=== PATIENT | female | born 1935 | race Caucasian/White ===

== ENCOUNTER 2021-07-29 12:47 | Inpatient (IN) | payer MEDICARE, OTHER ==
[2021-07-29] MEDS ORDERED: Sodium Chloride 0.9% 10 ML Syringe FLUSH PRN (12:57)
[2021-07-29] MEDS ORDERED: Furosemide 40 MG/4 ML VIAL IVPUSH ONE ×2 (13:42→18:00)
--- NOTE | 2021-07-29 14:05 | CR ---
Chest: Portable view of the chest was obtained. Comparison: No prior chest imaging is available. Heart is enlarged. Tortuous thoracic aorta is seen with diffuse atherosclerotic calcification. Pulmonary vessels are congested. Scoliosis is noted within the spine. Impression: 1. Findings suspicious for mild CHF. Diagnostic code #3
--- NOTE | 2021-07-29 15:09 | EDM.PDOC ---
ED HPI GENERAL MEDICAL PROBLEM - General Chief Complaint: Respiratory Problem Stated Complaint: pedritodeer amb Time Seen by Provider: 07/29/21 12:51 Source of Information: Reports: Patient, EMS, Provider History Limitations: Reports: No Limitations - History of Present Illness INITIAL COMMENTS - FREE TEXT/NARRATIVE: The patient presents by [facility] for shortness of breath and low oxygen saturations. The patient lives at [facility]. She went to [facility] in [place] to be seen. Her oxygen saturations were in the upper 70s and low 80s. They put her on oxygen called [facility] to transport. Over the past week her legs have been swelling and she has been more short of breath with exertion. She denies fever, chills, cough, chest pain, abdominal pain, nausea or vomiting. According to her clinic records she has CHF but it not currently on any diuretics. Onset: Gradual Duration: Week(s): Severity: Moderate Improves with: Reports: None Worsens with: Reports: None Associated Symptoms: Reports: Shortness of Breath. Denies: Chest Pain, Cough, Fever/Chills, Headaches, Nausea/Vomiting Right Knee Pain Score (Numeric/FACES): 6 - Related Data Allergies Allergy/AdvReac Type Severity Reaction Status Date / Time No Known Allergies Allergy Verified 07/29/21 13:04 Home Meds: Home Meds Calcium Carbonate 600 mg PO DAILY 07/29/21 [History] Cholecalciferol (Vitamin D3) [Vitamin D3] 5,000 unit PO DAILY 07/29/21 [History] Diclofenac Sodium [Voltaren 1% Gel] 1 applic TOP ASDIRECTED PRN 07/29/21 [History] Metoprolol Tartrate 100 mg PO BID 07/29/21 [History] Mirabegron [Myrbetriq] 25 mg PO DAILY 07/29/21 [History] Omeprazole 40 mg PO QAM 07/29/21 [History] Potassium Chloride 10 meq PO BID 07/29/21 [History] Rosuvastatin [Crestor] 10 mg PO QPM 07/29/21 [History] Valsartan/Hydrochlorothiazide [Diovan Hct 160-25 mg Tablet] 1 each PO DAILY 07/29/21 [History] Past Medical History Cardiovascular History: Reports: High Cholesterol, Hypertension Gastrointestinal History: Reports: GERD Genitourinary History: Reports: Chronic Renal Insuffiency, Urinary Incontinence, Other (See Below) Other Genitourinary History: bladder surgery Musculoskeletal History: Reports: Gout Hematologic History: Reports: Anemia Other Hematologic History: pt stopped iron pill due to freq of diarrhea Oncologic (Cancer) History: Reports: Breast Other Oncologic History: 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 Denies: Cough Cardiovascular: Reports: Edema. Denies: Chest Pain Endocrine: Reports: No Symptoms GI/Abdominal: Reports: No Symptoms : Reports: No Symptoms Musculoskeletal: Reports: Other (Edema of legs) ED EXAM, GENERAL - Physical Exam Exam: See Below Exam Limited By: No Limitations General Appearance: Alert, No Apparent Distress Ears: Normal External Exam Nose: Normal Inspection Head: Atraumatic, Normocephalic Neck: Normal Inspection Respiratory/Chest: No Respiratory Distress, Rales Cardiovascular: Regular Rate, Rhythm, No Edema, No Murmur, Other (Edema of both legs) GI/Abdominal: Soft, Non-Tender, No Organomegaly, No Mass Back Exam: Normal Inspection Extremities: Pedal Edema #1 Interpretation EKG Date: 07/29/21 Time: 13:26 Rhythm: Other (sinus bradycardia) Rate (Beats/Min): 51 Fountain: LAD-Left Fountain Deviation P-Wave: Present QRS: LBBB ST-T: Normal QT: Normal Course - Vital Signs Last Recorded V/S: Last Vital Signs Temp 96.9 F 07/29/21 12:54 Pulse 53 L 07/29/21 12:54 Resp 26 H 07/29/21 12:54 BP 211/82 H 07/29/21 12:54 Pulse Ox 84 L 07/29/21 12:54 - Orders/Labs/Meds Orders: Active Orders 24 hr Category Date Time Status Cardiac Monitoring [RC] . DIRECTED Care 07/29/21 12:57 Active Oxygen Therapy [RC] PRN Care 07/29/21 12:57 Active Peripheral IV Care [RC] . DIRECTED Care 07/29/21 12:58 Active Sodium Chloride 0.9% [Saline Flush] Med 07/29/21 12:57 Active 10 ml FLUSH ASDIRECTED PRN Peripheral IV Insertion Adult [OM.PC] Stat Oth 07/29/21 12:57 Ordered Medication Orders Sodium Chloride (Sodium Chloride 0.9% 10 Ml Syringe) 10 ml FLUSH ASDIRECTED PRN PRN Reason: Keep Vein Open Last Admin: 07/29/21 13:30 Dose: 10 ml Documented by: CHET Labs: Laboratory Tests 07/29/21 07/29/21 07/29/21 Range/Units 12:40 13:30 13:30 WBC 4.99 (3.98-10.04) K/mm3 RBC 4.79 (3.98-5.22) M/mm3 Hgb 12.6 (11.2-15.7) gm/dl Hct 43.9 (34.1-44.9) % MCV 91.6 (79.4-94.8) fl MCH 26.3 (25.6-32.2) pg MCHC 28.7 L (32.2-35.5) g/dl RDW Std Deviation 52.4 H (36.4-46.3) fL Plt Count 252 (182-369) K/mm3 MPV 9.8 (9.4-12.3) fl Neut % (Auto) 66.4 (34.0-71.1) % Lymph % (Auto) 19.6 (19.3-51.7) % [place] % (Auto) 10.8 (4.7-12.5) % Eos % (Auto) 2.4 (0.7-5.8) Baso % (Auto) 0.8 (0.1-1.2) % Neut # (Auto) 3.31 (1.56-6.13) K/mm3 Lymph # (Auto) 0.98 L (1.18-3.74) K/mm3 [place] # (Auto) 0.54 H (0.24-0.36) K/mm3 Eos # (Auto) 0.12 (0.04-0.36) K/mm3 Baso # (Auto) 0.04 (0.01-0.08) K/mm3 Manual Slide Review Abnormal smear Sodium 142 (136-145) mEq/L Potassium 5.9 H (3.5-5.1) mEq/L Chloride 109 H (98-107) mEq/L Carbon Dioxide 30 (21-32) mEq/L Anion Gap 8.9 (5-15) BUN 32 H (7-18) mg/dL Creatinine 2.0 H (0.55-1.02) mg/dL Est Cr Clr Drug Dosing 15.80 mL/min Estimated GFR (MDRD) 24 (>60) mL/min BUN/Creatinine Ratio 16.0 (14-18) Glucose 110 H (70-99) mg/dL Calcium 9.2 (8.5-10.1) mg/dL Total Bilirubin 0.5 (0.2-1.0) mg/dL AST 28 (15-37) U/L ALT 22 (14-59) U/L Alkaline Phosphatase 78 (46-116) U/L Troponin I < 0.017 (0.00-0.056) ng/mL NT-Pro-B Natriuret Pep (0-450) pg/mL Total Protein 6.6 (6.4-8.2) g/dl Albumin 3.0 L (3.4-5.0) g/dl Globulin 3.6 gm/dL Albumin/Globulin Ratio 0.8 L (1-2) SARS-CoV-2 RNA (ORAL) Negative (NEGATIVE) 07/29/21 Range/Units 13:30 WBC (3.98-10.04) K/mm3 RBC (3.98-5.22) M/mm3 Hgb (11.2-15.7) gm/dl Hct (34.1-44.9) % MCV (79.4-94.8) fl MCH (25.6-32.2) pg MCHC (32.2-35.5) g/dl RDW Std Deviation (36.4-46.3) fL Plt Count (182-369) K/mm3 MPV (9.4-12.3) fl Neut % (Auto) (34.0-71.1) % Lymph % (Auto) (19.3-51.7) % [place] % (Auto) (4.7-12.5) % Eos % (Auto) (0.7-5.8) Baso % (Auto) (0.1-1.2) % Neut # (Auto) (1.56-6.13) K/mm3 Lymph # (Auto) (1.18-3.74) K/mm3 [place] # (Auto) (0.24-0.36) K/mm3 Eos # (Auto) (0.04-0.36) K/mm3 Baso # (Auto) (0.01-0.08) K/mm3 Manual Slide Review Sodium (136-145) mEq/L Potassium (3.5-5.1) mEq/L Chloride (98-107) mEq/L Carbon Dioxide (21-32) mEq/L Anion Gap (5-15) BUN (7-18) mg/dL Creatinine (0.55-1.02) mg/dL Est Cr Clr Drug Dosing mL/min Estimated GFR (MDRD) (>60) mL/min BUN/Creatinine Ratio (14-18) Glucose (70-99) mg/dL Calcium (8.5-10.1) mg/dL Total Bilirubin (0.2-1.0) mg/dL AST (15-37) U/L ALT (14-59) U/L Alkaline Phosphatase (46-116) U/L Troponin I (0.00-0.056) ng/mL NT-Pro-B Natriuret Pep 01116 H (0-450) pg/mL Total Protein (6.4-8.2) g/dl Albumin (3.4-5.0) g/dl Globulin gm/dL Albumin/Globulin Ratio (1-2) SARS-CoV-2 RNA (ORAL) (NEGATIVE) Meds: Medications Generic Name Dose Route Start Last Admin Trade Name Freq PRN Reason Stop Dose Admin Sodium Chloride 10 ml 07/29/21 12:57 07/29/21 13:30 Sodium Chloride 0.9% 10 Ml Syringe FLUSH 10 ml ASDIRECTED PRN Administration Keep Vein Open Discontinued Medications Generic Name Dose Route Start Last Admin Trade Name Freq PRN Reason Stop Dose Admin Furosemide 40 mg 07/29/21 13:42 07/29/21 14:45 Furosemide 40 Mg/4 Ml Vial IVPUSH 07/29/21 13:43 40 mg NOW ONE Administration - Re-Assessments/Exams Free Text/Narrative Re-Assessment/Exam: 07/29/21 15:12 I ordered oxygen, IV saline lock, EKG, CXR and labs. EKG shows sinus bradycardia with LBBB. I have no old EKGs to compare to. Her CXR shows CHF. Her CBC looks good. Her K is elevated at 5.9. Her BUN is elevated at 32. Her creatinine is elevated at 2. Her GFR is low at 24. Her troponin is negative. Her BNP is very elevated at 28,193. She is COVID negative. I have ordered lasix 40mg IV. I feel she needs to be admitted. I called talked to Dr Pettit and he agreed to the admission. Her K is elevated at 5.9. I will hold off aggressive treatment for this. Departure - Departure Time of Disposition: 15:20 Disposition: Admitted As Inpatient 66 Condition: Fair Clinical Impression: Renal insufficiency, Hyperkalemia, Hypoxia CHF exacerbation Qualifiers: Heart failure type: unspecified Qualified Code(s): I50.9 - Heart failure, unspecified - Discharge Information Sepsis Event Note (ED) - Focused Exam Vital Signs: Vital Signs Temp Pulse Resp BP Pulse Ox 07/29/21 12:54 96.9 F 53 L 26 H 211/82 H 84 L - My Orders Last 24 Hours: My Active Orders 07/29/21 12:57 Cardiac Monitoring [RC] . DIRECTED Oxygen Therapy [RC] PRN Sodium Chloride 0.9% [Saline Flush] 10 ml FLUSH ASDIRECTED PRN Peripheral IV Insertion Adult [OM.PC] Stat 07/29/21 12:58 Peripheral IV Care [RC] . DIRECTED - Assessment/Plan Last 24 Hours: My Active Orders 07/29/21 12:57 Cardiac Monitoring [RC] . DIRECTED Oxygen Therapy [RC] PRN Sodium Chloride 0.9% [Saline Flush] 10 ml FLUSH ASDIRECTED PRN Peripheral IV Insertion Adult [OM.PC] Stat 07/29/21 12:58 Peripheral IV Care [RC] . DIRECTED
[2021-07-29] MEDS ORDERED: Albuterol 0.083% 2.5 MG/3 ML Neb Soln NEB PRN (16:49)
[2021-07-29] MEDS ORDERED: Diclofenac Sodium 1% Gel 100 GM Tube TOP PRN (16:58)
--- NOTE | 2021-07-29 17:03 | PCM.HP.2 ---
H&P History of Present Illness - General Date of Service: 07/29/21 Admit Problem/Dx: Admission Diagnosis/Problem Admission Diagnosis/Problem CHF, Congestive heart failure - History of Present Illness Initial Comments - Free Text/Narative: 85-year-old female with history of congestive heart failure, hypertension, hyperlipidemia, iron deficiency anemia, and chronic kidney disease who lives in assisted living at [facility] presented to the emergency department after being seen at her clinic in [place] with oxygen saturations in the upper 70s and low 80s. Apparently she slept longer this morning than normal and nursing staff was concerned and checked her vitals. Her vitals there were consistent with the above findings and they encouraged her to be seen at the local clinic. Patient denies any shortness of breath, PND, orthopnea, or chest pain. She states she has had some left ankle pain for the last few days, but does not report significant changes in her swelling. It appears though, that she has had some increased swelling over the last week and there is report of increased shortness of breath. Patient was mildly tachypneic on exam. Patient was brought to the emergency room and chest x-ray showed findings suspicious for CHF. Chemistries that were pertinent showed a sodium of 142, potassium elevated at 5.9, BUN 32, elevated creatinine of 2.0, low GFR 24, negative troponin less than 0.017, proBNP of 28,193, and SARS-CoV-2 negative. Patient was given 40 mg of Lasix and started on O2. It was felt patient was in need of hospitalization. Right Knee Pain Score (Numeric/FACES): 6 - Related Data Allergies/Adverse Reactions: Allergies Allergy/AdvReac Type Severity Reaction Status Date / Time No Known Allergies Allergy Verified 07/29/21 17:08 Home Medications: Home Meds Calcium Carbonate 600 mg PO DAILY 07/29/21 [History] Cholecalciferol (Vitamin D3) [Vitamin D3] 5,000 unit PO DAILY 07/29/21 [History] Diclofenac Sodium [Voltaren 1% Gel] 1 applic TOP ASDIRECTED PRN 07/29/21 [History] Metoprolol Tartrate 100 mg PO BID 07/29/21 [History] Mirabegron [Myrbetriq] 25 mg PO DAILY 07/29/21 [History] Omeprazole 40 mg PO QAM 07/29/21 [History] Potassium Chloride 10 meq PO BID 07/29/21 [History] Rosuvastatin [Crestor] 10 mg PO QPM 07/29/21 [History] Valsartan/Hydrochlorothiazide [Diovan Hct 160-25 mg Tablet] 1 each PO DAILY 07/29/21 [History] Past Medical History Cardiovascular History: Reports: High Cholesterol, Hypertension Gastrointestinal History: Reports: GERD Genitourinary History: Reports: Chronic Renal Insuffiency, Urinary Incontinence, Other (See Below) Other Genitourinary History: bladder surgery Musculoskeletal History: Reports: Gout Hematologic History: Reports: Anemia Other Hematologic History: pt stopped iron pill due to freq of diarrhea Oncologic (Cancer) History: Reports: Breast Other Oncologic History: 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 Exam - Exam Exam: See Below - Vital Signs Vital Signs: Last Vital Signs Temp 96.9 F 07/29/21 12:54 Pulse 53 L 07/29/21 12:54 Resp 26 H 07/29/21 12:54 BP 211/82 H 07/29/21 12:54 Pulse Ox 84 L 07/29/21 12:54 Weight: 151 lb 6.4 oz - Exam Quality Assessment: Supplemental Oxygen General: Alert, Oriented, 4 HEENT: Conjunctiva Clear, Hearing Intact, Mucosa Moist & [place], Normal Nasal Septum Neck: Supple, Trachea Midline, 2 Lungs: Crackles (Throughout both lung thomas). No: Normal Respiratory Effort (Increased respiratory rate) Cardiovascular: Regular Rhythm, Bradycardia (Heart rate in the 50s) GI/Abdominal Exam: Normal Bowel Sounds, Soft, Non-Tender, No Organomegaly, No Distention, No Abnormal Bruit, No Mass Extremities: Non-Tender, Normal Capillary Refill, Pedal Edema (2-3+ pitting edema), Other (Left ankle is tender on the medial aspect. Pain with active and passive flexion and extension.) Peripheral Pulses: 1+: Posterior Tibial (L), Posterior Tibial (R), Dorsalis Pedis (L), Dorsalis Pedis (R) Skin: Warm, Dry, Intact, Rash (Mildly erythematous lower extremities without warmth) Neuro Extensive - Mental Status: Alert, Oriented x3, Normal Mood/Affect, Normal Cognition, Memory Intact Neuro Extensive - Motor, Sensory, Reflexes: CN II-XII Intact Psychiatric: Alert, Normal Affect, Normal Mood - Patient Data Lab Results Last 24 hrs: Laboratory Results - last 24 hr 07/29/21 07/29/21 07/29/21 Range/Units 12:40 13:30 13:30 WBC 4.99 (3.98-10.04) K/mm3 RBC 4.79 (3.98-5.22) M/mm3 Hgb 12.6 (11.2-15.7) gm/dl Hct 43.9 (34.1-44.9) % MCV 91.6 (79.4-94.8) fl MCH 26.3 (25.6-32.2) pg MCHC 28.7 L (32.2-35.5) g/dl RDW Std Deviation 52.4 H (36.4-46.3) fL Plt Count 252 (182-369) K/mm3 MPV 9.8 (9.4-12.3) fl Neut % (Auto) 66.4 (34.0-71.1) % Lymph % (Auto) 19.6 (19.3-51.7) % [place] % (Auto) 10.8 (4.7-12.5) % Eos % (Auto) 2.4 (0.7-5.8) Baso % (Auto) 0.8 (0.1-1.2) % Neut # (Auto) 3.31 (1.56-6.13) K/mm3 Lymph # (Auto) 0.98 L (1.18-3.74) K/mm3 [place] # (Auto) 0.54 H (0.24-0.36) K/mm3 Eos # (Auto) 0.12 (0.04-0.36) K/mm3 Baso # (Auto) 0.04 (0.01-0.08) K/mm3 Manual Slide Review Abnormal smear Sodium 142 (136-145) mEq/L Potassium 5.9 H (3.5-5.1) mEq/L Chloride 109 H (98-107) mEq/L Carbon Dioxide 30 (21-32) mEq/L Anion Gap 8.9 (5-15) BUN 32 H (7-18) mg/dL Creatinine 2.0 H (0.55-1.02) mg/dL Est Cr Clr Drug Dosing 15.80 mL/min Estimated GFR (MDRD) 24 (>60) mL/min BUN/Creatinine Ratio 16.0 (14-18) Glucose 110 H (70-99) mg/dL Calcium 9.2 (8.5-10.1) mg/dL Total Bilirubin 0.5 (0.2-1.0) mg/dL AST 28 (15-37) U/L ALT 22 (14-59) U/L Alkaline Phosphatase 78 (46-116) U/L Troponin I < 0.017 (0.00-0.056) ng/mL NT-Pro-B Natriuret Pep (0-450) pg/mL Total Protein 6.6 (6.4-8.2) g/dl Albumin 3.0 L (3.4-5.0) g/dl Globulin 3.6 gm/dL Albumin/Globulin Ratio 0.8 L (1-2) SARS-CoV-2 RNA (ORAL) Negative (NEGATIVE) 07/29/21 Range/Units 13:30 WBC (3.98-10.04) K/mm3 RBC (3.98-5.22) M/mm3 Hgb (11.2-15.7) gm/dl Hct (34.1-44.9) % MCV (79.4-94.8) fl MCH (25.6-32.2) pg MCHC (32.2-35.5) g/dl RDW Std Deviation (36.4-46.3) fL Plt Count (182-369) K/mm3 MPV (9.4-12.3) fl Neut % (Auto) (34.0-71.1) % Lymph % (Auto) (19.3-51.7) % [place] % (Auto) (4.7-12.5) % Eos % (Auto) (0.7-5.8) Baso % (Auto) (0.1-1.2) % Neut # (Auto) (1.56-6.13) K/mm3 Lymph # (Auto) (1.18-3.74) K/mm3 [place] # (Auto) (0.24-0.36) K/mm3 Eos # (Auto) (0.04-0.36) K/mm3 Baso # (Auto) (0.01-0.08) K/mm3 Manual Slide Review Sodium (136-145) mEq/L Potassium (3.5-5.1) mEq/L Chloride (98-107) mEq/L Carbon Dioxide (21-32) mEq/L Anion Gap (5-15) BUN (7-18) mg/dL Creatinine (0.55-1.02) mg/dL Est Cr Clr Drug Dosing mL/min Estimated GFR (MDRD) (>60) mL/min BUN/Creatinine Ratio (14-18) Glucose (70-99) mg/dL Calcium (8.5-10.1) mg/dL Total Bilirubin (0.2-1.0) mg/dL AST (15-37) U/L ALT (14-59) U/L Alkaline Phosphatase (46-116) U/L Troponin I (0.00-0.056) ng/mL NT-Pro-B Natriuret Pep 22269 H (0-450) pg/mL Total Protein (6.4-8.2) g/dl Albumin (3.4-5.0) g/dl Globulin gm/dL Albumin/Globulin Ratio (1-2) SARS-CoV-2 RNA (ORAL) (NEGATIVE) Result Diagrams: 07/29/21 13:30 07/29/21 13:30 Aamir Results Last 24 hrs: Microbiology 07/29/21 12:40 Influenza Type A Antigen Screen - Final Nasopharyngeal Swab - Nare, Left NEGATIVE INFLUENZA A VIRUS AG REFERENCE RANGE: NEGATIVE Influenza Type B Antigen Screen - Final NEGATIVE INFLUENZA B VIRUS AG REFERENCE RANGE: NEGATIVE Sepsis Event Note - Focused Exam Vital Signs: Vital Signs Temp Pulse Resp BP Pulse Ox 07/29/21 12:54 96.9 F 53 L 26 H 211/82 H 84 L - Problem List (1) Hypertension SNOMED Code(s): 41416489 ICD Code: I10 - ESSENTIAL (PRIMARY) HYPERTENSION Status: Acute Current Visit: Yes (2) CHF exacerbation SNOMED Code(s): 866498799, 44366098197459 ICD Code: I50.9 - HEART FAILURE, UNSPECIFIED Status: Acute Current Visit: No Qualifiers: Heart failure type: unspecified Qualified Code(s): I50.9 - Heart failure, unspecified (3) Hyperkalemia SNOMED Code(s): 13058975 ICD Code: E87.5 - HYPERKALEMIA Status: Acute Current Visit: No (4) Hypoxia SNOMED Code(s): 524223726 ICD Code: R09.02 - HYPOXEMIA Status: Acute Current Visit: No (5) Renal insufficiency SNOMED Code(s): 489615136, 830811430 ICD Code: N28.9 - DISORDER OF KIDNEY AND URETER, UNSPECIFIED Status: Acute Current Visit: No Problem List Initiated/Reviewed/Updated: Yes Orders Last 24hrs: Active Orders 24 hr Category Date Time Status Patient Status [ADT] Routine ADT 07/29/21 15:37 Active Oxygen Therapy [RC] PRN Care 07/29/21 16:50 Ordered RT Aerosol Therapy [RC] ASDIRECTED Care 07/29/21 16:51 Ordered Up With Assistance [RC] ASDIRECTED Care 07/29/21 16:49 Ordered VTE/DVT Education [RC] PER UNIT ROUTINE Care 07/29/21 16:50 Ordered Vital Signs [RC] Q4H Care 07/29/21 16:50 Ordered PT Evaluation and Treatment [CONS] Routine Cons 07/29/21 16:49 Ordered Heart Healthy Diet [DIET] Diet 07/29/21 Dinner Ordered Ankle 2V Lt [CR] Routine Exams 07/29/21 16:57 Ordered Knee 1V or 2V Rt [CR] Routine Exams 07/29/21 16:54 Ordered Acetaminophen [TylenoL] Med 07/29/21 16:49 Ordered 650 mg PO Q4H PRN Albuterol [Proventil Neb Soln] Med 07/29/21 16:49 Ordered 2.5 mg NEB Q2H PRN Diclofenac Sodium [Voltaren 1% Gel] Med 07/29/21 16:58 Ordered 1 applic TOP ASDIRECTED PRN Enoxaparin [Lovenox] Med 07/30/21 09:00 Ordered 30 mg SUBCUT DAILY Furosemide [Lasix] Med 07/29/21 18:00 Once 40 mg IVPUSH ONETIME ONE Omeprazole [Omeprazole] Med 07/30/21 08:00 Ordered 40 mg PO QAM Rosuvastatin [Crestor] Med 07/29/21 18:00 Ordered 10 mg PO QPM Sodium Chloride 0.9% [Saline Flush] Med 07/29/21 12:57 Active 10 ml FLUSH ASDIRECTED PRN hydrALAZINE [Apresoline] Med 07/29/21 16:52 Ordered 10 mg IVPUSH Q4H PRN Peripheral IV Insertion Adult [OM.PC] Stat Oth 07/29/21 12:57 Ordered Resuscitation Status Routine Resus Stat 07/29/21 16:49 Ordered Medication Orders Acetaminophen (Acetaminophen 325 Mg Tab) 650 mg PO Q4H PRN PRN Reason: Pain (Mild 1-3)/fever Albuterol (Albuterol 0.083% 2.5 Mg/3 Ml Neb Soln) 2.5 mg NEB Q2H PRN PRN Reason: Shortness Of Breath/wheezing Diclofenac Sodium (Diclofenac Sodium 1% Gel 100 Gm Tube) gm TOP ASDIRECTED PRN PRN Reason: Pain Enoxaparin Sodium (Enoxaparin 30 Mg/0.3 Ml Syringe) 30 mg SUBCUT DAILY KAIA Furosemide (Furosemide 20 Mg/2 Ml Vial) 40 mg IVPUSH ONETIME ONE Stop: 07/29/21 18:01 Hydralazine HCl (Hydralazine 20 Mg/Ml Sdv) 10 mg IVPUSH Q4H PRN PRN Reason: Hypertension Non-Formulary Medication (Omeprazole [Omeprazole]) 40 mg PO QAM KAIA Rosuvastatin Calcium (Rosuvastatin 10 Mg Tab) 10 mg PO QPM KAIA Sodium Chloride (Sodium Chloride 0.9% 10 Ml Syringe) 10 ml FLUSH ASDIRECTED PRN PRN Reason: Keep Vein Open Last Admin: 07/29/21 13:30 Dose: 10 ml Documented by: CHET Assessment/Plan Comment:: 85-year-old female with history of hypertension, congestive heart failure, and renal insufficiency presents to the emergency department with worsening shortness of breath, lower extremity edema, and low oxygen saturation. Exacerbation of CHF Bradycardia Hypoxemia Hypertension * No recent echocardiogram. * Unknown type of heart failure * Chest x-ray consistent with CHF * proBNP likely artificially elevated, but still significantly elevated at 28,193 * Given Lasix 40 mg IV in the emergency department Plan Give second dose of Lasix 40 mg IV tonight Follow I's and O's closely Aim for 7 to 10 pound weight loss over the next 36 to 72 hours Follow electrolytes closely and renal function. FiO2 to keep SPO2 greater than 92% Get echocardiogram Hold metoprolol and Diovan until bradycardia and renal function improve Blood pressure in the emergency department was elevated with systolic blood pressures between 160 and 200. Hydralazine 10 mg IV every 4 hours as needed blood pressure greater than 160/105 Acute renal injury on chronic renal disease * No recent records to compare current creatinine or GFR. * Medical records only stay chronic kidney disease, unspecified CKD stage. * Creatinine 2.0 with estimated GFR of 24 in emergency department * Anticipate worsening of renal function initially secondary to diuresis. This may improve with stopping Diovan and improving congestive heart failure * Renal disease likely exacerbated by CHF and hypoxemia Plan Hold Diovan Cautious diuresis, but will require higher doses of Lasix secondary to renal disease Renally dose medication Follow renal function closely Hyperkalemia * Potassium 5.9 * EKG does not demonstrate peaked T waves, EKG does show rate of 51 bpm with a left axis deviation and left bundle branch block. Plan Stop supplemental potassium from home meds Hold Diovan Follow daily Chronic active medical problems: Idiopathic gout, GERD, mixed hyperlipidemia, iron deficiency anemia (normal hemoglobin here) VTE prophylaxis with Lovenox CODE STATUS: DNR/DNI, confirmed with patient. - Mortality Measure Prognosis:: Good
[2021-07-29] MEDS: Rosuvastatin 10 MG Tab PO SCH (18:09)
--- NOTE | 2021-07-29 19:44 | CR ---
Left ankle: 2 views of the left ankle were obtained. Comparison: No prior left ankle study is available. Bony structures are osteopenic. Ankle mortise is symmetric. Plantar spur is present. No acute fracture or other bony abnormality is appreciated. Impression: 1. Osteopenia and plantar spur. 2. Nothing acute is appreciated on 2 view left ankle study. Diagnostic code #2
--- NOTE | 2021-07-29 19:44 | CR ---
Right knee: AP and lateral views of the right knee were obtained. Comparison: No prior knee study is available. Severe lateral joint space narrowing is seen. Mild medial joint space narrowing is seen. Bony structures are osteopenic. Vascular calcification is present. No acute fracture or other bony abnormality is appreciated. Impression: 1. Degenerative change as noted above with osteopenia. 2. No definite acute osseous abnormality is appreciated. Diagnostic code #2
[2021-07-30] MEDS ORDERED: Furosemide 40 MG/4 ML VIAL IVPUSH SCH (06:00)
[2021-07-30] MEDS: Pantoprazole 40 MG Tab.CR PO SCH (06:21)
[2021-07-30] MEDS ORDERED: Magnesium Sulfate/Water 4 GM in Premix Bag 1 BAG IV ONE (09:24)
[2021-07-30] MEDS: Furosemide 40 MG/4 ML VIAL IVPUSH ONE ×2 (09:30→11:19)
[2021-07-30] MEDS: Enoxaparin 30 MG/0.3 ML Syringe SUBCUT SCH (09:55)
[2021-07-30] MEDS: Furosemide 40 MG/4 ML VIAL IVPUSH SCH (14:19)
--- NOTE | 2021-07-30 14:23 | PCM.SN.2 ---
- Free Text/Narrative Note: 1352 in room for IV start 24 ga. right wrist good flush good blood return out of room at 1414 Time Documentation
--- NOTE | 2021-07-30 14:34 | PCM.PN ---
- General Info Date of Service: 07/30/21 Admission Dx/Problem (Free Text): Admission Diagnosis/Problem Admission Diagnosis/Problem CHF, Congestive heart failure Subjective Update: 85-year-old female with history of hypertension, congestive heart failure, and renal insufficiency presents to the emergency department with worsening shortness of breath, lower extremity edema, and low oxygen saturation for exacerbation of CHF and acute on chronic renal insufficiency. Patient had some mild improvement overnight, but only a -600 mL fluid balance. Weight is down about a half a pound overnight. Patient is without any significant changes from admission. Functional Status: Reports: Pain Controlled - Review of Systems General: Reports: No Symptoms HEENT: Reports: No Symptoms Pulmonary: Reports: No Symptoms Cardiovascular: Reports: No Symptoms Musculoskeletal: Reports: No Symptoms - Patient Data Vitals - Most Recent: Last Vital Signs Temp 97.0 F 07/30/21 08:13 Pulse 56 L 07/30/21 08:13 Resp 20 07/30/21 08:13 BP 152/65 H 07/30/21 09:00 Pulse Ox 98 07/30/21 10:00 Weight - Most Recent: 150 lb 9.6 oz I&O - Last 24 Hours: Intake & Output 07/29/21 07/30/21 07/30/21 22:59 06:59 14:59 Intake Total 350 50 220 Output Total 500 500 300 Balance -150 -450 -80 Lab Results Last 24 Hours: Laboratory Results - last 24 hr 07/29/21 07/30/21 07/30/21 Range/Units 18:11 05:54 05:54 WBC 5.94 (3.98-10.04) K/mm3 RBC 4.63 (3.98-5.22) M/mm3 Hgb 12.2 (11.2-15.7) gm/dl Hct 43.6 (34.1-44.9) % MCV 94.2 (79.4-94.8) fl MCH 26.3 (25.6-32.2) pg MCHC 28.0 L (32.2-35.5) g/dl RDW Std Deviation 53.6 H (36.4-46.3) fL Plt Count 244 (182-369) K/mm3 MPV 9.9 (9.4-12.3) fl Neut % (Auto) 68.6 (34.0-71.1) % Lymph % (Auto) 16.2 L (19.3-51.7) % [place] % (Auto) 12.0 (4.7-12.5) % Eos % (Auto) 2.5 (0.7-5.8) Baso % (Auto) 0.5 (0.1-1.2) % Neut # (Auto) 4.08 (1.56-6.13) K/mm3 Lymph # (Auto) 0.96 L (1.18-3.74) K/mm3 [place] # (Auto) 0.71 H (0.24-0.36) K/mm3 Eos # (Auto) 0.15 (0.04-0.36) K/mm3 Baso # (Auto) 0.03 (0.01-0.08) K/mm3 Sodium 144 (136-145) mEq/L Potassium 5.2 H (3.5-5.1) mEq/L Chloride 107 (98-107) mEq/L Carbon Dioxide 29 (21-32) mEq/L Anion Gap 13.2 (5-15) BUN 36 H (7-18) mg/dL Creatinine 1.9 H (0.55-1.02) mg/dL Est Cr Clr Drug Dosing 16.63 mL/min Estimated GFR (MDRD) 25 (>60) mL/min BUN/Creatinine Ratio 18.9 H (14-18) Glucose 89 (70-99) mg/dL Calcium 8.8 (8.5-10.1) mg/dL Phosphorus 5.2 H (2.6-4.7) mg/dL Magnesium 1.4 L (1.8-2.4) mg/dL MRSA (PCR) Negative Aamir Results Last 24 Hours: Microbiology 07/29/21 12:40 Influenza Type A Antigen Screen - Final Nasopharyngeal Swab - Nare, Left NEGATIVE INFLUENZA A VIRUS AG REFERENCE RANGE: NEGATIVE Influenza Type B Antigen Screen - Final NEGATIVE INFLUENZA B VIRUS AG REFERENCE RANGE: NEGATIVE Med Orders - Current: Current Medications Acetaminophen (Acetaminophen 325 Mg Tab) 650 mg PO Q4H PRN PRN Reason: Pain (Mild 1-3)/fever Albuterol (Albuterol 0.083% 2.5 Mg/3 Ml Neb Soln) 2.5 mg NEB Q2H PRN PRN Reason: Shortness Of Breath/wheezing Diclofenac Sodium (Diclofenac Sodium 1% Gel 100 Gm Tube) 0 gm TOP ASDIRECTED PRN PRN Reason: Pain Enoxaparin Sodium (Enoxaparin 30 Mg/0.3 Ml Syringe) 30 mg SUBCUT DAILY [facility] Last Admin: 07/30/21 09:55 Dose: 30 mg Documented by: Furosemide (Furosemide 40 Mg/4 Ml Vial) 80 mg IVPUSH BIDDIURETIC [facility] Last Admin: 07/30/21 14:19 Dose: 80 mg Documented by: Hydralazine HCl (Hydralazine 20 Mg/Ml Sdv) 10 mg IVPUSH Q4H PRN PRN Reason: Hypertension Pantoprazole Sodium (Pantoprazole 40 Mg Tab.Cr) 40 mg PO DAILY@0700 [facility] Last Admin: 07/30/21 06:21 Dose: 40 mg Documented by: Rosuvastatin Calcium (Rosuvastatin 10 Mg Tab) 10 mg PO QPM [facility] Last Admin: 07/29/21 18:09 Dose: 10 mg Documented by: Sodium Chloride (Sodium Chloride 0.9% 10 Ml Syringe) 10 ml FLUSH ASDIRECTED PRN PRN Reason: Keep Vein Open Last Admin: 07/29/21 13:30 Dose: 10 ml Documented by: Discontinued Medications Furosemide (Furosemide 40 Mg/4 Ml Vial) 40 mg IVPUSH NOW ONE Stop: 07/29/21 13:43 Last Admin: 07/29/21 14:45 Dose: 40 mg Documented by: Furosemide (Furosemide 40 Mg/4 Ml Vial) 40 mg IVPUSH ONETIME ONE Stop: 07/29/21 18:01 Last Admin: 07/29/21 18:09 Dose: 40 mg Documented by: Furosemide (Furosemide 40 Mg/4 Ml Vial) 40 mg IVPUSH BIDDIURETIC [facility] Last Admin: 07/30/21 06:21 Dose: 40 mg Documented by: Furosemide (Furosemide 40 Mg/4 Ml Vial) 40 mg IVPUSH NOW ONE Stop: 07/30/21 08:12 Last Admin: 07/30/21 11:19 Dose: Not Given Documented by: Magnesium Sulfate 4 gm/ Premix 50 mls @ 12.5 mls/hr IV ONETIME ONE Stop: 07/30/21 13:23 Last Admin: 07/30/21 11:28 Dose: 12.5 mls/hr Documented by: - Exam Quality Assessment: Supplemental Oxygen General: Alert, Oriented HEENT: Pupils Equal, Mucous Membr. Moist/[place] Neck: Supple Lungs: Crackles. No: Normal Respiratory Effort Cardiovascular: Regular Rate, Regular Rhythm GI/Abdominal Exam: Normal Bowel Sounds, Soft, Non-Tender, No Distention Extremities: Normal Inspection, Non-Tender, Normal Capillary Refill, Pedal Edema (2-3+) Skin: Warm, Dry, Intact Psy/Mental Status: Alert, Normal Affect, Normal Mood - Patient Data Lab Results Last 24 hrs: Laboratory Results - last 24 hr 07/29/21 07/30/21 07/30/21 Range/Units 18:11 05:54 05:54 WBC 5.94 (3.98-10.04) K/mm3 RBC 4.63 (3.98-5.22) M/mm3 Hgb 12.2 (11.2-15.7) gm/dl Hct 43.6 (34.1-44.9) % MCV 94.2 (79.4-94.8) fl MCH 26.3 (25.6-32.2) pg MCHC 28.0 L (32.2-35.5) g/dl RDW Std Deviation 53.6 H (36.4-46.3) fL Plt Count 244 (182-369) K/mm3 MPV 9.9 (9.4-12.3) fl Neut % (Auto) 68.6 (34.0-71.1) % Lymph % (Auto) 16.2 L (19.3-51.7) % [place] % (Auto) 12.0 (4.7-12.5) % Eos % (Auto) 2.5 (0.7-5.8) Baso % (Auto) 0.5 (0.1-1.2) % Neut # (Auto) 4.08 (1.56-6.13) K/mm3 Lymph # (Auto) 0.96 L (1.18-3.74) K/mm3 [place] # (Auto) 0.71 H (0.24-0.36) K/mm3 Eos # (Auto) 0.15 (0.04-0.36) K/mm3 Baso # (Auto) 0.03 (0.01-0.08) K/mm3 Sodium 144 (136-145) mEq/L Potassium 5.2 H (3.5-5.1) mEq/L Chloride 107 (98-107) mEq/L Carbon Dioxide 29 (21-32) mEq/L Anion Gap 13.2 (5-15) BUN 36 H (7-18) mg/dL Creatinine 1.9 H (0.55-1.02) mg/dL Est Cr Clr Drug Dosing 16.63 mL/min Estimated GFR (MDRD) 25 (>60) mL/min BUN/Creatinine Ratio 18.9 H (14-18) Glucose 89 (70-99) mg/dL Calcium 8.8 (8.5-10.1) mg/dL Phosphorus 5.2 H (2.6-4.7) mg/dL Magnesium 1.4 L (1.8-2.4) mg/dL MRSA (PCR) Negative Result Diagrams: 07/30/21 05:54 07/30/21 05:54 Aamir Results Last 24 hrs: Microbiology 07/29/21 12:40 Influenza Type A Antigen Screen - Final Nasopharyngeal Swab - Nare, Left NEGATIVE INFLUENZA A VIRUS AG REFERENCE RANGE: NEGATIVE Influenza Type B Antigen Screen - Final NEGATIVE INFLUENZA B VIRUS AG REFERENCE RANGE: NEGATIVE Sepsis Event Note - Evaluation Sepsis Screening Result: No Definite Risk - Focused Exam Vital Signs: Vital Signs Temp Pulse Resp BP BP Pulse Ox Pulse Ox 07/30/21 10:00 98 07/30/21 09:00 152/65 H 07/30/21 08:13 97.0 F 56 L 20 172/116 H 98 07/30/21 03:05 97.5 F 56 L 22 H 172/47 H 96 - Problem List & Annotations (1) Hypertension SNOMED Code(s): 17633663 Code(s): I10 - ESSENTIAL (PRIMARY) HYPERTENSION Status: Acute Current Visit: Yes (2) CHF exacerbation SNOMED Code(s): 559943205, 93861624771319 Code(s): I50.9 - HEART FAILURE, UNSPECIFIED Status: Acute Current Visit: No Qualifiers: Heart failure type: unspecified Qualified Code(s): I50.9 - Heart failure, unspecified (3) Hyperkalemia SNOMED Code(s): 99638486 Code(s): E87.5 - HYPERKALEMIA Status: Acute Current Visit: No (4) Hypoxia SNOMED Code(s): 477784961 Code(s): R09.02 - HYPOXEMIA Status: Acute Current Visit: No (5) Renal insufficiency SNOMED Code(s): 058669297, 374143249 Code(s): N28.9 - DISORDER OF KIDNEY AND URETER, UNSPECIFIED Status: Acute Current Visit: No - Problem List Review Problem List Initiated/Reviewed/Updated: Yes - My Orders Last 24 Hours: My Active Orders 07/29/21 16:49 Up With Assistance [RC] BID PT Evaluation and Treatment [CONS] Routine Acetaminophen [TylenoL] 650 mg PO Q4H PRN Albuterol [Proventil Neb Soln] 2.5 mg NEB Q2H PRN Resuscitation Status Routine 07/29/21 16:50 Oxygen Therapy [RC] PRN VTE/DVT Education [RC] DAILY Vital Signs [RC] Q4HR 07/29/21 16:51 RT Aerosol Therapy [RC] ASDIRECTED 07/29/21 16:52 hydrALAZINE [Apresoline] 10 mg IVPUSH Q4H PRN 07/29/21 16:58 Diclofenac Sodium [Voltaren 1% Gel] 0 gm TOP ASDIRECTED PRN 07/29/21 Dinner Heart Healthy Diet [DIET] 07/29/21 18:00 Rosuvastatin [Crestor] 10 mg PO QPM 07/29/21 19:30 Intake and Output Strict [RC] Q2HR 07/30/21 Echo Comp wo Cont [US] Routine 07/30/21 07:00 Pantoprazole [ProTONIX] 40 mg PO DAILY@0700 07/30/21 09:00 Enoxaparin [Lovenox] 30 mg SUBCUT DAILY 07/30/21 14:00 Furosemide [Lasix] 80 mg IVPUSH BIDDIURETIC - Plan Plan:: 85-year-old female with history of hypertension, congestive heart failure, and renal insufficiency presents to the emergency department with worsening shortness of breath, lower extremity edema, and low oxygen saturation. 1admission Exacerbation of CHF Bradycardia Hypoxemia Hypertension * No recent echocardiogram. * Unknown type of heart failure * Chest x-ray consistent with CHF * proBNP likely artificially elevated, but still significantly elevated at 28,193 * Given Lasix 40 mg IV in the emergency department Plan Give second dose of Lasix 40 mg IV tonight Follow I's and O's closely Aim for 7 to 10 pound weight loss over the next 36 to 72 hours Follow electrolytes closely and renal function. FiO2 to keep SPO2 greater than 92% Get echocardiogram Hold metoprolol and Diovan until bradycardia and renal function improve Blood pressure in the emergency department was elevated with systolic blood pressures between 160 and 200. Hydralazine 10 mg IV every 4 hours as needed blood pressure greater than 160/105 07/30/2021 Marginal improvement overnight. Will order an echocardiogram today. Unfortunately, they lost IV access early this morning and were unable to obtain IV access until 1400 in the afternoon. Patient will be given Lasix 80 mg x 1 and repeat at 2000 hrs. Continue to follow BMP and magnesium closely. Blood pressure continues to be significantly elevated. Hydralazine is ordered for systolic blood pressure greater than 180 or diastolic pressure greater than 105. This should improve with diuresis and restarting of her home medications. 07/29/2021dmission Acute renal injury on chronic renal disease * No recent records to compare current creatinine or GFR. * Medical records only stay chronic kidney disease, unspecified CKD stage. * Creatinine 2.0 with estimated GFR of 24 in emergency department * Anticipate worsening of renal function initially secondary to diuresis. This may improve with stopping Diovan and improving congestive heart failure * Renal disease likely exacerbated by CHF and hypoxemia Plan Hold Diovan Cautious diuresis, but will require higher doses of Lasix secondary to renal disease Renally dose medication Follow renal function closely 07/30/2021 Creatinine shows no significant change at 1.9. Continue to monitor with diuresis. 1admission Hyperkalemia * Potassium 5.9 * EKG does not demonstrate peaked T waves, EKG does show rate of 51 bpm with a left axis deviation and left bundle branch block. Plan Stop supplemental potassium from home meds Hold Diovan Follow daily 07/30/2021 Potassium decreased to 5.2. Continue diuresis and following. Continue to hold Diovan and potassium supplementation. Chronic active medical problems: Idiopathic gout, GERD, mixed hyperlipidemia, iron deficiency anemia (normal hemoglobin here) VTE prophylaxis with Lovenox CODE STATUS: DNR/DNI, confirmed with patient.
[2021-07-30] MEDS: Rosuvastatin 10 MG Tab PO SCH (19:05)
[2021-07-30] MEDS ORDERED: Furosemide 100 MG/10 ML SDV IVPUSH ONE (20:00)
[2021-07-31] MEDS: Acetaminophen 325 MG Tab PO PRN ×2 (01:51→23:03)
[2021-07-31] MEDS: Furosemide 40 MG/4 ML VIAL IVPUSH SCH ×2 (08:03→14:05)
[2021-07-31] MEDS: Pantoprazole 40 MG Tab.CR PO SCH (08:10)
[2021-07-31] MEDS: Enoxaparin 30 MG/0.3 ML Syringe SUBCUT SCH (08:13)
[2021-07-31] MEDS ORDERED: Metoprolol Tartrate 5 MG/5 ML SDV IVPUSH ONE ×2 (09:24→09:54)
[2021-07-31] MEDS ORDERED: Metoprolol Tartrate 5 MG/5 ML SDV ONE (09:56)
--- NOTE | 2021-07-31 10:58 | PCM.PN ---
- General Info Date of Service: 07/31/21 Admission Dx/Problem (Free Text): Admission Diagnosis/Problem Admission Diagnosis/Problem CHF, Congestive heart failure Subjective Update: This morning patient went into atrial fibrillation with RVR. Patient was given metoprolol tartrate 5 mg IV x2 without improvement in her heart rate. She was then transferred to the ICU for more definitive care. Patient denied any shortness of breath, chest pain, palpitations. After metoprolol she did complain of some upper dental pain. In the ICU she was given Cardizem 10 mg IV x1 and she had good rate control. Troponin was sent which was negative and TSH was normal. Echocardiogram results showed an ejection fraction of 55 to 60%. Impaired relaxation of grade 1 pattern of LV diastolic filling. Moderate bilateral atrial dilatation with mild to moderate mitral valve regurgitation. Please see results for complete study findings. - Review of Systems General: Reports: Fatigue HEENT: Reports: No Symptoms Pulmonary: Reports: No Symptoms Cardiovascular: Reports: No Symptoms Gastrointestinal: Reports: No Symptoms Musculoskeletal: Reports: No Symptoms - Patient Data Vitals - Most Recent: Last Vital Signs Temp 97.5 F 07/31/21 04:24 Pulse 113 H 07/31/21 10:00 Resp 16 07/31/21 04:24 BP 107/52 L 07/31/21 10:00 Pulse Ox 100 07/31/21 10:00 Weight - Most Recent: 148 lb 8 oz I&O - Last 24 Hours: Intake & Output 07/30/21 07/31/21 07/31/21 22:59 06:59 14:59 Intake Total 50 500 120 Output Total 500 775 100 Balance -450 -275 20 Lab Results Last 24 Hours: Laboratory Results - last 24 hr 07/31/21 07/31/21 Range/Units 08:51 08:51 WBC 5.26 (3.98-10.04) K/mm3 RBC 4.55 (3.98-5.22) M/mm3 Hgb 12.0 (11.2-15.7) gm/dl Hct 42.5 (34.1-44.9) % MCV 93.4 (79.4-94.8) fl MCH 26.4 (25.6-32.2) pg MCHC 28.2 L (32.2-35.5) g/dl RDW Std Deviation 52.6 H (36.4-46.3) fL Plt Count 236 (182-369) K/mm3 MPV 9.7 (9.4-12.3) fl Neut % (Auto) 69.9 (34.0-71.1) % Lymph % (Auto) 14.4 L (19.3-51.7) % [place] % (Auto) 12.2 (4.7-12.5) % Eos % (Auto) 2.7 (0.7-5.8) Baso % (Auto) 0.6 (0.1-1.2) % Neut # (Auto) 3.68 (1.56-6.13) K/mm3 Lymph # (Auto) 0.76 L (1.18-3.74) K/mm3 [place] # (Auto) 0.64 H (0.24-0.36) K/mm3 Eos # (Auto) 0.14 (0.04-0.36) K/mm3 Baso # (Auto) 0.03 (0.01-0.08) K/mm3 Manual Slide Review Normal smear Sodium 144 (136-145) mEq/L Potassium 4.4 (3.5-5.1) mEq/L Chloride 107 (98-107) mEq/L Carbon Dioxide 35 H (21-32) mEq/L Anion Gap 6.4 (5-15) BUN 35 H (7-18) mg/dL Creatinine 2.0 H (0.55-1.02) mg/dL Est Cr Clr Drug Dosing 15.80 mL/min Estimated GFR (MDRD) 24 (>60) mL/min BUN/Creatinine Ratio 17.5 (14-18) Glucose 89 (70-99) mg/dL Calcium 8.8 (8.5-10.1) mg/dL Magnesium 2.3 (1.8-2.4) mg/dL Med Orders - Current: Current Medications Acetaminophen (Acetaminophen 325 Mg Tab) 650 mg PO Q4H PRN PRN Reason: Pain (Mild 1-3)/fever Last Admin: 07/31/21 01:51 Dose: 650 mg Documented by: Albuterol (Albuterol 0.083% 2.5 Mg/3 Ml Neb Soln) 2.5 mg NEB Q2H PRN PRN Reason: Shortness Of Breath/wheezing Diclofenac Sodium (Diclofenac Sodium 1% Gel 100 Gm Tube) 0 gm TOP ASDIRECTED PRN PRN Reason: Pain Enoxaparin Sodium (Enoxaparin 30 Mg/0.3 Ml Syringe) 30 mg SUBCUT DAILY [facility] Last Admin: 07/31/21 08:13 Dose: 30 mg Documented by: Furosemide (Furosemide 40 Mg/4 Ml Vial) 80 mg IVPUSH BIDDIURETIC [facility] Last Admin: 07/31/21 08:03 Dose: 80 mg Documented by: Hydralazine HCl (Hydralazine 20 Mg/Ml Sdv) 10 mg IVPUSH Q4H PRN PRN Reason: Hypertension Pantoprazole Sodium (Pantoprazole 40 Mg Tab.Cr) 40 mg PO DAILY@0700 [facility] Last Admin: 07/31/21 08:10 Dose: 40 mg Documented by: Rosuvastatin Calcium (Rosuvastatin 10 Mg Tab) 10 mg PO QPM [facility] Last Admin: 07/30/21 19:05 Dose: 10 mg Documented by: Sodium Chloride (Sodium Chloride 0.9% 10 Ml Syringe) 10 ml FLUSH ASDIRECTED PRN PRN Reason: Keep Vein Open Last Admin: 07/29/21 13:30 Dose: 10 ml Documented by: Discontinued Medications Furosemide (Furosemide 40 Mg/4 Ml Vial) 40 mg IVPUSH NOW ONE Stop: 07/29/21 13:43 Last Admin: 07/29/21 14:45 Dose: 40 mg Documented by: Furosemide (Furosemide 40 Mg/4 Ml Vial) 40 mg IVPUSH ONETIME ONE Stop: 07/29/21 18:01 Last Admin: 07/29/21 18:09 Dose: 40 mg Documented by: Furosemide (Furosemide 40 Mg/4 Ml Vial) 40 mg IVPUSH BIDDIURETIC [facility] Last Admin: 07/30/21 06:21 Dose: 40 mg Documented by: Furosemide (Furosemide 40 Mg/4 Ml Vial) 40 mg IVPUSH NOW ONE Stop: 07/30/21 08:12 Last Admin: 07/30/21 11:19 Dose: Not Given Documented by: Furosemide (Furosemide 100 Mg/10 Ml Sdv) 80 mg IVPUSH ONETIME ONE Stop: 07/30/21 20:01 Last Admin: 07/30/21 20:21 Dose: 80 mg Documented by: Magnesium Sulfate 4 gm/ Premix 50 mls @ 12.5 mls/hr IV ONETIME ONE Stop: 07/30/21 13:23 Last Admin: 07/30/21 11:28 Dose: 12.5 mls/hr Documented by: Metoprolol Tartrate (Metoprolol Tartrate 5 Mg/5 Ml Sdv) 5 mg IVPUSH ONETIME ONE Stop: 07/31/21 09:25 Last Admin: 07/31/21 09:30 Dose: 5 mg Documented by: Metoprolol Tartrate (Metoprolol Tartrate 5 Mg/5 Ml Sdv) 5 mg IVPUSH ONETIME ONE Stop: 07/31/21 09:55 Metoprolol Tartrate (Metoprolol Tartrate 5 Mg/5 Ml Sdv) Confirm Administered Dose 5 mg .ROUTE .STK-MED ONE Stop: 07/31/21 09:57 Last Admin: 07/31/21 10:00 Dose: 5 mg Documented by: - Exam Quality Assessment: Supplemental Oxygen General: Alert, Oriented HEENT: Pupils Equal, Mucous Membr. Moist/[place] Neck: Supple Lungs: Crackles (Bibasilar). No: Normal Respiratory Effort (Mildly increased respiratory rate) Cardiovascular: Irregular Rhythm GI/Abdominal Exam: Normal Bowel Sounds, Soft, Non-Tender, No Distention Extremities: Pedal Edema (2-3+ pitting edema bilaterally with mild tenderness.) Skin: Warm, Dry, Intact Neurological: No New Focal Deficit Psy/Mental Status: Alert, Normal Affect, Normal Mood - Patient Data Lab Results Last 24 hrs: Laboratory Results - last 24 hr 07/31/21 07/31/21 Range/Units 08:51 08:51 WBC 5.26 (3.98-10.04) K/mm3 RBC 4.55 (3.98-5.22) M/mm3 Hgb 12.0 (11.2-15.7) gm/dl Hct 42.5 (34.1-44.9) % MCV 93.4 (79.4-94.8) fl MCH 26.4 (25.6-32.2) pg MCHC 28.2 L (32.2-35.5) g/dl RDW Std Deviation 52.6 H (36.4-46.3) fL Plt Count 236 (182-369) K/mm3 MPV 9.7 (9.4-12.3) fl Neut % (Auto) 69.9 (34.0-71.1) % Lymph % (Auto) 14.4 L (19.3-51.7) % [place] % (Auto) 12.2 (4.7-12.5) % Eos % (Auto) 2.7 (0.7-5.8) Baso % (Auto) 0.6 (0.1-1.2) % Neut # (Auto) 3.68 (1.56-6.13) K/mm3 Lymph # (Auto) 0.76 L (1.18-3.74) K/mm3 [place] # (Auto) 0.64 H (0.24-0.36) K/mm3 Eos # (Auto) 0.14 (0.04-0.36) K/mm3 Baso # (Auto) 0.03 (0.01-0.08) K/mm3 Manual Slide Review Normal smear Sodium 144 (136-145) mEq/L Potassium 4.4 (3.5-5.1) mEq/L Chloride 107 (98-107) mEq/L Carbon Dioxide 35 H (21-32) mEq/L Anion Gap 6.4 (5-15) BUN 35 H (7-18) mg/dL Creatinine 2.0 H (0.55-1.02) mg/dL Est Cr Clr Drug Dosing 15.80 mL/min Estimated GFR (MDRD) 24 (>60) mL/min BUN/Creatinine Ratio 17.5 (14-18) Glucose 89 (70-99) mg/dL Calcium 8.8 (8.5-10.1) mg/dL Magnesium 2.3 (1.8-2.4) mg/dL Result Diagrams: 07/31/21 08:51 07/31/21 08:51 Sepsis Event Note - Evaluation Sepsis Screening Result: No Definite Risk - Focused Exam Vital Signs: Vital Signs Temp Pulse Resp BP Pulse Ox Pulse Ox 07/31/21 10:00 113 H 107/52 L 100 07/31/21 09:30 143 H 128/86 07/31/21 08:50 82 L 07/31/21 04:24 97.5 F 57 L 16 131/43 L 95 07/31/21 01:16 85 L 07/31/21 01:08 97.9 F 70 20 168/102 H 90 L 07/31/21 00:51 97.5 F 71 16 188/78 H 85 L - Problem List & Annotations (1) Hypertension SNOMED Code(s): 08842787 Code(s): I10 - ESSENTIAL (PRIMARY) HYPERTENSION Status: Acute Current Visit: Yes (2) CHF exacerbation SNOMED Code(s): 577057500, 66872836275324 Code(s): I50.9 - HEART FAILURE, UNSPECIFIED Status: Acute Current Visit: No Qualifiers: Heart failure type: unspecified Qualified Code(s): I50.9 - Heart failure, unspecified (3) Hyperkalemia SNOMED Code(s): 10942566 Code(s): E87.5 - HYPERKALEMIA Status: Acute Current Visit: No (4) Hypoxia SNOMED Code(s): 391389402 Code(s): R09.02 - HYPOXEMIA Status: Acute Current Visit: No (5) Renal insufficiency SNOMED Code(s): 852867334, 236447757 Code(s): N28.9 - DISORDER OF KIDNEY AND URETER, UNSPECIFIED Status: Acute Current Visit: No - Problem List Review Problem List Initiated/Reviewed/Updated: Yes - My Orders Last 24 Hours: My Active Orders 07/30/21 14:00 Furosemide [Lasix] 80 mg IVPUSH BIDDIURETIC 07/31/21 09:42 EKG Documentation Completion [RC] STAT 07/31/21 10:53 Patient Status [ADT] Routine Cardiac Monitoring [RC] . DIRECTED 07/31/21 Lunch Fluid Restriction [DIET] 08/01/21 05:11 CBC WITH AUTO DIFF [HEME] AM CMP [COMPREHENSIVE METABOLIC PN,CMP] [CHEM] AM MAGNESIUM [CHEM] AM - Plan Plan:: 85-year-old female with history of hypertension, congestive heart failure, and renal insufficiency presents to the emergency department with worsening shortness of breath, lower extremity edema, and low oxygen saturation. Exacerbation of CHF Bradycardia Hypoxemia Hypertension 1admission * No recent echocardiogram. * Unknown type of heart failure * Chest x-ray consistent with CHF * proBNP likely artificially elevated, but still significantly elevated at 28,193 * Given Lasix 40 mg IV in the emergency department Plan Give second dose of Lasix 40 mg IV tonight Follow I's and O's closely Aim for 7 to 10 pound weight loss over the next 36 to 72 hours Follow electrolytes closely and renal function. FiO2 to keep SPO2 greater than 92% Get echocardiogram Hold metoprolol and Diovan until bradycardia and renal function improve Blood pressure in the emergency department was elevated with systolic blood pressures between 160 and 200. Hydralazine 10 mg IV every 4 hours as needed blood pressure greater than 160/105 07/30/2021 Marginal improvement overnight. Will order an echocardiogram today. Unfortunately, they lost IV access early this morning and were unable to obtain IV access until 1400 in the afternoon. Patient will be given Lasix 80 mg x 1 and repeat at 2000 hrs. Continue to follow BMP and magnesium closely. Blood pressure continues to be significantly elevated. Hydralazine is ordered for systolic blood pressure greater than 180 or diastolic pressure greater than 105. This should improve with diuresis and restarting of her home medications. 07/31/2021 Patient went into atrial fibrillation with RVR. She was controlled with Cardizem 10 mg IV push. Echocardiogram does show moderate biatrial dilatation which would suggest that she has been in atrial fibrillation in the past. When she was admitted she was significantly bradycardic with ventricular rate in the 50s. She was on metoprolol tartrate which could have masked her going in and out of atrial fibrillation. Fortunately her echocardiogram also showed normal left of ejection fraction of 55 to 60%. We will start her on p.o. Cardizem for rate control and blood pressure control. She will need anticoagulation with Eliquis 2.5 mg twice daily renally dosed. Also, she has had poor weight loss, but yesterday we had difficulty getting an IV which slowed down diuresis. She was given 80 mg of IV Lasix this morning with mixed results. We will start her on Lasix drip this afternoon. Follow blood pressure closely. Acute renal injury on chronic renal disease 1admission * No recent records to compare current creatinine or GFR. * Medical records only stay chronic kidney disease, unspecified CKD stage. * Creatinine 2.0 with estimated GFR of 24 in emergency department * Anticipate worsening of renal function initially secondary to diuresis. This may improve with stopping Diovan and improving congestive heart failure * Renal disease likely exacerbated by CHF and hypoxemia Plan Hold Diovan Cautious diuresis, but will require higher doses of Lasix secondary to renal disease Renally dose medication Follow renal function closely 07/30/2021 Creatinine shows no significant change at 1.9. Continue to monitor with diuresis. 07/31/2021 Review of old records showed on 03/02/2021 she had a creatinine of 1.3 and an estimated GFR 39. This morning her creatinine was 2.0 with an estimated GFR of 24. This is significantly worse. This is making it more difficult for diuresis. We are continuing to hold her Diovan and hydrochlorothiazide. Follow blood pressures closely. Hyperkalemia 07/29/2021dmission * Potassium 5.9 * EKG does not demonstrate peaked T waves, EKG does show rate of 51 bpm with a left axis deviation and left bundle branch block. Plan Stop supplemental potassium from home meds Hold Diovan Follow daily 07/30/2021 Potassium decreased to 5.2. Continue diuresis and following. Continue to hold Diovan and potassium supplementation. 07/31/2021 Potassium is down to 4.4. Continue to follow. Continue holding Diovan and potassium supplementation. Chronic active medical problems: Idiopathic gout, GERD, mixed hyperlipidemia, iron deficiency anemia (normal hemoglobin here) VTE prophylaxis with Lovenox CODE STATUS: DNR/DNI, confirmed with patient.
[2021-07-31] MEDS ORDERED: Diltiazem 50 MG/10 ML SDV IVPUSH ONE (11:33)
[2021-07-31] MEDS: Diltiazem IR 30 MG Tab PO SCH ×2 (12:43→17:57)
--- NOTE | 2021-07-31 13:23 | PCM.EKG ---
#1 Interpretation EKG Date: 07/31/21 Time: 09:49 Rhythm: A-Fib Rate (Beats/Min): 114 [place]: Normal P-Wave: Absent QRS: LBBB ST-T: Normal EKG Interpretation Comments: Branch block with new onset atrial fibrillation the rate between 110 and 130.
[2021-07-31] MEDS: Furosemide 100 MG in Sodium Chloride 0.9% 90 ML IV SCH ×2 (14:06→22:09)
[2021-07-31] MEDS: Rosuvastatin 10 MG Tab PO SCH (17:57)
[2021-07-31] MEDS ORDERED: Diltiazem IR 30 MG Tab PO ONE (19:10)
[2021-07-31] MEDS: Melatonin 3 MG Tab PO PRN (20:58)
[2021-08-01] MEDS ORDERED: Diltiazem IR 60 MG Tab PO SCH (02:00)
[2021-08-01] MEDS: Furosemide 100 MG in Sodium Chloride 0.9% 90 ML IV SCH ×2 (03:33→21:35)
[2021-08-01] MEDS ORDERED: Ketorolac 30 MG/ML SDV IVPUSH ONE (05:19)
[2021-08-01] MEDS: Pantoprazole 40 MG Tab.CR PO SCH (06:26)
[2021-08-01] MEDS: Metoprolol Tartrate 50 MG Tab PO SCH ×2 (08:13→20:25)
[2021-08-01] MEDS: Apixaban 2.5 MG Tab PO SCH ×2 (08:14→20:25)
[2021-08-01] MEDS ORDERED: Furosemide 40 MG/4 ML VIAL IVPUSH ONE ×2 (09:16→15:33)
--- NOTE | 2021-08-01 09:22 | PCM.EKG ---
#1 Interpretation EKG Date: 07/31/21 Time: 22:20 Rhythm: NSR Rate (Beats/Min): 53 QRS: LBBB (This rhythm with left bundle branch block) EKG Interpretation Comments: Sinus rhythm with ventricular rate of 53 bpm. Left bundle branch block. Change in EKG from earlier that showed atrial fibrillation with RVR.
[2021-08-01] MEDS ORDERED: Albumin 25% 12.5 GM in Premix Bag 1 BAG IV ONE (09:30)
--- NOTE | 2021-08-01 12:30 | PCM.PN ---
- General Info Date of Service: 08/01/21 Admission Dx/Problem (Free Text): Admission Diagnosis/Problem Admission Diagnosis/Problem CHF, Congestive heart failure Subjective Update: 85-year-old female admitted with heart failure with preserved ejection fraction and acute on chronic renal insufficiency developed A. fib with RVR yesterday morning. Last night she did convert to sinus rhythm with her ventricular rate back in the 50s. Patient was transferred to the ICU where she was placed on Cardizem p.o. She has had some episodes of confusion. Echocardiogram showed biatrial enlargement suggesting that she likely has paroxysmal atrial fibrillation. She was switched over to Eliquis 2.5 mg twice daily. Weight is down 13 pounds from yesterday and 16 pounds overall. There is some discrepancy likely secondary to different scales being used. Functional Status: Reports: Pain Controlled - Review of Systems General: Reports: No Symptoms HEENT: Reports: No Symptoms Pulmonary: Reports: No Symptoms Cardiovascular: Reports: No Symptoms Gastrointestinal: Reports: No Symptoms Musculoskeletal: Reports: No Symptoms Skin: Reports: No Symptoms Psychiatric: Reports: No Symptoms - Patient Data Vitals - Most Recent: Last Vital Signs Temp 97.2 F 08/01/21 08:00 Pulse 67 08/01/21 08:13 Resp 31 H 08/01/21 08:01 BP 122/71 08/01/21 08:13 Pulse Ox 98 08/01/21 08:01 Weight - Most Recent: 135 lb I&O - Last 24 Hours: Intake & Output 07/31/21 08/01/21 08/01/21 22:59 06:59 14:59 Intake Total 660 488 Output Total 515 540 260 Balance 145 -52 -260 Lab Results Last 24 Hours: Laboratory Results - last 24 hr 08/01/21 08/01/21 Range/Units 06:20 06:20 WBC 6.24 (3.98-10.04) K/mm3 RBC 4.16 (3.98-5.22) M/mm3 Hgb 10.8 L (11.2-15.7) gm/dl Hct 38.4 (34.1-44.9) % MCV 92.3 (79.4-94.8) fl MCH 26.0 (25.6-32.2) pg MCHC 28.1 L (32.2-35.5) g/dl RDW Std Deviation 52.1 H (36.4-46.3) fL Plt Count 202 (182-369) K/mm3 MPV 9.5 (9.4-12.3) fl Neut % (Auto) 69.6 (34.0-71.1) % Lymph % (Auto) 12.3 L (19.3-51.7) % Ray % (Auto) 14.7 H (4.7-12.5) % Eos % (Auto) 2.9 (0.7-5.8) Baso % (Auto) 0.5 (0.1-1.2) % Neut # (Auto) 4.34 (1.56-6.13) K/mm3 Lymph # (Auto) 0.77 L (1.18-3.74) K/mm3 Ray # (Auto) 0.92 H (0.24-0.36) K/mm3 Eos # (Auto) 0.18 (0.04-0.36) K/mm3 Baso # (Auto) 0.03 (0.01-0.08) K/mm3 Manual Slide Review Normal smear Sodium 144 (136-145) mEq/L Potassium 4.2 (3.5-5.1) mEq/L Chloride 106 (98-107) mEq/L Carbon Dioxide 32 (21-32) mEq/L Anion Gap 10.2 (5-15) BUN 37 H (7-18) mg/dL Creatinine 2.0 H (0.55-1.02) mg/dL Est Cr Clr Drug Dosing 15.80 mL/min Estimated GFR (MDRD) 24 (>60) mL/min BUN/Creatinine Ratio 18.5 H (14-18) Glucose 96 (70-99) mg/dL Calcium 8.7 (8.5-10.1) mg/dL Magnesium 2.0 (1.8-2.4) mg/dL Total Bilirubin 0.5 (0.2-1.0) mg/dL AST 20 (15-37) U/L ALT 20 (14-59) U/L Alkaline Phosphatase 66 (46-116) U/L Total Protein 5.3 L (6.4-8.2) g/dl Albumin 2.6 L (3.4-5.0) g/dl Globulin 2.7 gm/dL Albumin/Globulin Ratio 1.0 (1-2) Med Orders - Current: Current Medications Acetaminophen (Acetaminophen 325 Mg Tab) 650 mg PO Q4H PRN PRN Reason: Pain (Mild 1-3)/fever Last Admin: 07/31/21 23:03 Dose: 650 mg Documented by: Albuterol (Albuterol 0.083% 2.5 Mg/3 Ml Neb Soln) 2.5 mg NEB Q2H PRN PRN Reason: Shortness Of Breath/wheezing Apixaban (Apixaban 2.5 Mg Tab) 2.5 mg PO BID [facility] Last Admin: 08/01/21 08:14 Dose: 2.5 mg Documented by: Diclofenac Sodium (Diclofenac Sodium 1% Gel 100 Gm Tube) 0 gm TOP ASDIRECTED PRN PRN Reason: Pain Hydralazine HCl (Hydralazine 20 Mg/Ml Sdv) 10 mg IVPUSH Q4H PRN PRN Reason: Hypertension Furosemide 100 mg/ Sodium (Chloride) 100 mls @ 10 mls/hr IV CONTINUOUS KAIA; Protocol Last Titration: 08/01/21 04:01 Dose: 0 ml/hr, 0 mls/hr Documented by: Melatonin (Melatonin 3 Mg Tab) 6 mg PO BEDTIME PRN PRN Reason: Sleep Last Admin: 07/31/21 20:58 Dose: 6 mg Documented by: Metoprolol Tartrate (Metoprolol Tartrate 50 Mg Tab) 50 mg PO Q12H [facility] Last Admin: 08/01/21 08:13 Dose: 50 mg Documented by: Pantoprazole Sodium (Pantoprazole 40 Mg Tab.Cr) 40 mg PO DAILY@0700 [facility] Last Admin: 08/01/21 06:26 Dose: 40 mg Documented by: Rosuvastatin Calcium (Rosuvastatin 10 Mg Tab) 10 mg PO QPM [facility] Last Admin: 07/31/21 17:57 Dose: 10 mg Documented by: Sodium Chloride (Sodium Chloride 0.9% 10 Ml Syringe) 10 ml FLUSH ASDIRECTED PRN PRN Reason: Keep Vein Open Last Admin: 07/29/21 13:30 Dose: 10 ml Documented by: Discontinued Medications Diltiazem HCl (Diltiazem 50 Mg/10 Ml Sdv) 10 mg IVPUSH ONETIME ONE Stop: 07/31/21 11:34 Last Admin: 07/31/21 11:43 Dose: 10 mg Documented by: Diltiazem HCl (Diltiazem Ir 30 Mg Tab) 30 mg PO Q6HR [facility] Last Admin: 07/31/21 17:57 Dose: 30 mg Documented by: Diltiazem HCl (Diltiazem Ir 30 Mg Tab) 30 mg PO ONETIME ONE Stop: 07/31/21 19:11 Last Admin: 07/31/21 19:50 Dose: 30 mg Documented by: Diltiazem HCl (Diltiazem Ir 60 Mg Tab) 60 mg PO Q8H [facility] Last Admin: 08/01/21 02:13 Dose: 60 mg Documented by: Enoxaparin Sodium (Enoxaparin 30 Mg/0.3 Ml Syringe) 30 mg SUBCUT DAILY [facility] Last Admin: 07/31/21 08:13 Dose: 30 mg Documented by: Furosemide (Furosemide 40 Mg/4 Ml Vial) 40 mg IVPUSH NOW ONE Stop: 07/29/21 13:43 Last Admin: 07/29/21 14:45 Dose: 40 mg Documented by: Furosemide (Furosemide 40 Mg/4 Ml Vial) 40 mg IVPUSH ONETIME ONE Stop: 07/29/21 18:01 Last Admin: 07/29/21 18:09 Dose: 40 mg Documented by: Furosemide (Furosemide 40 Mg/4 Ml Vial) 40 mg IVPUSH BIDDIURETIC [facility] Last Admin: 07/30/21 06:21 Dose: 40 mg Documented by: Furosemide (Furosemide 40 Mg/4 Ml Vial) 40 mg IVPUSH NOW ONE Stop: 07/30/21 08:12 Last Admin: 07/30/21 11:19 Dose: Not Given Documented by: Furosemide (Furosemide 40 Mg/4 Ml Vial) 80 mg IVPUSH BIDDIURETIC [facility] Last Admin: 07/31/21 14:05 Dose: 80 mg Documented by: Furosemide (Furosemide 100 Mg/10 Ml Sdv) 80 mg IVPUSH ONETIME ONE Stop: 07/30/21 20:01 Last Admin: 07/30/21 20:21 Dose: 80 mg Documented by: Furosemide (Furosemide 40 Mg/4 Ml Vial) 60 mg IVPUSH NOW ONE Stop: 08/01/21 09:17 Last Admin: 08/01/21 10:18 Dose: 60 mg Documented by: Magnesium Sulfate 4 gm/ Premix 50 mls @ 12.5 mls/hr IV ONETIME ONE Stop: 07/30/21 13:23 Last Admin: 07/30/21 11:28 Dose: 12.5 mls/hr Documented by: Albumin Human 12.5 gm/ Premix 50 mls @ 50 mls/hr IV ONETIME ONE Stop: 08/01/21 10:29 Last Admin: 08/01/21 10:19 Dose: 50 mls/hr Documented by: Metoprolol Tartrate (Metoprolol Tartrate 5 Mg/5 Ml Sdv) 5 mg IVPUSH ONETIME ONE Stop: 07/31/21 09:25 Last Admin: 07/31/21 09:30 Dose: 5 mg Documented by: Metoprolol Tartrate (Metoprolol Tartrate 5 Mg/5 Ml Sdv) 5 mg IVPUSH ONETIME ONE Stop: 07/31/21 09:55 Last Admin: 07/31/21 11:35 Dose: Not Given Documented by: Metoprolol Tartrate (Metoprolol Tartrate 5 Mg/5 Ml Sdv) Confirm Administered Dose 5 mg .ROUTE .STK-MED ONE Stop: 07/31/21 09:57 Last Admin: 07/31/21 10:00 Dose: 5 mg Documented by: - Exam Quality Assessment: Supplemental Oxygen Urinary Catheter Total Time: 0Days 16Hours General: Alert HEENT: Pupils Equal, Mucous Membr. Moist/Lindstrom Neck: Supple Lungs: Normal Respiratory Effort, Crackles Cardiovascular: Regular Rhythm, Bradycardia GI/Abdominal Exam: Normal Bowel Sounds, Soft, Non-Tender, No Distention Extremities: Normal Capillary Refill, Pedal Edema (2+ bilateral pedal edema. Much improved from yesterday.) Skin: Warm, Dry, Intact Neurological: No New Focal Deficit Psy/Mental Status: Alert, Normal Affect, Normal Mood - Patient Data Lab Results Last 24 hrs: Laboratory Results - last 24 hr 08/01/21 08/01/21 Range/Units 06:20 06:20 WBC 6.24 (3.98-10.04) K/mm3 RBC 4.16 (3.98-5.22) M/mm3 Hgb 10.8 L (11.2-15.7) gm/dl Hct 38.4 (34.1-44.9) % MCV 92.3 (79.4-94.8) fl MCH 26.0 (25.6-32.2) pg MCHC 28.1 L (32.2-35.5) g/dl RDW Std Deviation 52.1 H (36.4-46.3) fL Plt Count 202 (182-369) K/mm3 MPV 9.5 (9.4-12.3) fl Neut % (Auto) 69.6 (34.0-71.1) % Lymph % (Auto) 12.3 L (19.3-51.7) % Ray % (Auto) 14.7 H (4.7-12.5) % Eos % (Auto) 2.9 (0.7-5.8) Baso % (Auto) 0.5 (0.1-1.2) % Neut # (Auto) 4.34 (1.56-6.13) K/mm3 Lymph # (Auto) 0.77 L (1.18-3.74) K/mm3 Ray # (Auto) 0.92 H (0.24-0.36) K/mm3 Eos # (Auto) 0.18 (0.04-0.36) K/mm3 Baso # (Auto) 0.03 (0.01-0.08) K/mm3 Manual Slide Review Normal smear Sodium 144 (136-145) mEq/L Potassium 4.2 (3.5-5.1) mEq/L Chloride 106 (98-107) mEq/L Carbon Dioxide 32 (21-32) mEq/L Anion Gap 10.2 (5-15) BUN 37 H (7-18) mg/dL Creatinine 2.0 H (0.55-1.02) mg/dL Est Cr Clr Drug Dosing 15.80 mL/min Estimated GFR (MDRD) 24 (>60) mL/min BUN/Creatinine Ratio 18.5 H (14-18) Glucose 96 (70-99) mg/dL Calcium 8.7 (8.5-10.1) mg/dL Magnesium 2.0 (1.8-2.4) mg/dL Total Bilirubin 0.5 (0.2-1.0) mg/dL AST 20 (15-37) U/L ALT 20 (14-59) U/L Alkaline Phosphatase 66 (46-116) U/L Total Protein 5.3 L (6.4-8.2) g/dl Albumin 2.6 L (3.4-5.0) g/dl Globulin 2.7 gm/dL Albumin/Globulin Ratio 1.0 (1-2) Result Diagrams: 08/01/21 06:20 08/01/21 06:20 Sepsis Event Note - Evaluation Sepsis Screening Result: No Definite Risk - Focused Exam Vital Signs: Vital Signs Temp Pulse Resp BP BP Pulse Ox 08/01/21 08:13 67 122/71 08/01/21 08:01 31 H 122/71 98 08/01/21 08:00 97.2 F 17 122/71 97 08/01/21 07:00 20 93 L 08/01/21 06:00 25 H 90 L 08/01/21 05:00 26 H 90 L 08/01/21 04:01 20 92 L 08/01/21 04:00 97.6 F 22 H 136/46 L 94 L 08/01/21 03:01 23 H 119/48 L 90 L 08/01/21 02:00 20 128/43 L 95 08/01/21 01:00 24 H 124/40 L 93 L - Problem List & Annotations (1) Hypertension SNOMED Code(s): 65537706 Code(s): I10 - ESSENTIAL (PRIMARY) HYPERTENSION Status: Acute Current Visit: Yes (2) CHF exacerbation SNOMED Code(s): 294880975, 20442752826950 Code(s): I50.9 - HEART FAILURE, UNSPECIFIED Status: Acute Current Visit: No Qualifiers: Heart failure type: unspecified Qualified Code(s): I50.9 - Heart failure, unspecified (3) Hyperkalemia SNOMED Code(s): 24461427 Code(s): E87.5 - HYPERKALEMIA Status: Acute Current Visit: No (4) Hypoxia SNOMED Code(s): 750214647 Code(s): R09.02 - HYPOXEMIA Status: Acute Current Visit: No (5) Renal insufficiency SNOMED Code(s): 866540103, 426437361 Code(s): N28.9 - DISORDER OF KIDNEY AND URETER, UNSPECIFIED Status: Acute Current Visit: No - Problem List Review Problem List Initiated/Reviewed/Updated: Yes - My Orders Last 24 Hours: My Active Orders 07/31/21 12:00 Insert Urinary Catheter [OM.PC] Routine 07/31/21 12:14 Urinary Catheter Assessment [RC] Q4H 07/31/21 14:10 Furosemide [Lasix] 100 mg Sodium Chloride 0.9% [Normal Saline] 90 ml IV CONTINUOUS 07/31/21 19:21 Melatonin 6 mg PO BEDTIME PRN 07/31/21 19:28 Communication Order [RC] 08/01/21 09:00 Apixaban [Eliquis] 2.5 mg PO BID Metoprolol Tartrate [Lopressor] 50 mg PO Q12H - Plan Plan:: 85-year-old female with history of hypertension, congestive heart failure, and renal insufficiency presents to the emergency department with worsening shortness of breath, lower extremity edema, and low oxygen saturation. Exacerbation of CHF Bradycardia Hypoxemia Hypertension 07/29/2021dmission * No recent echocardiogram. * Unknown type of heart failure * Chest x-ray consistent with CHF * proBNP likely artificially elevated, but still significantly elevated at 28,193 * Given Lasix 40 mg IV in the emergency department Plan Give second dose of Lasix 40 mg IV tonight Follow I's and O's closely Aim for 7 to 10 pound weight loss over the next 36 to 72 hours Follow electrolytes closely and renal function. FiO2 to keep SPO2 greater than 92% Get echocardiogram Hold metoprolol and Diovan until bradycardia and renal function improve Blood pressure in the emergency department was elevated with systolic blood pressures between 160 and 200. Hydralazine 10 mg IV every 4 hours as needed blood pressure greater than 160/105 07/30/2021 Marginal improvement overnight. Will order an echocardiogram today. Unfortunately, they lost IV access early this morning and were unable to obtain IV access until 1400 in the afternoon. Patient will be given Lasix 80 mg x 1 and repeat at 2000 hrs. Continue to follow BMP and magnesium closely. Blood pressure continues to be significantly elevated. Hydralazine is ordered for systolic blood pressure greater than 180 or diastolic pressure greater than 105. This should improve with diuresis and restarting of her home medications. 07/31/2021 Patient went into atrial fibrillation with RVR. She was controlled with Cardizem 10 mg IV push. Echocardiogram does show moderate biatrial dilatation which would suggest that she has been in atrial fibrillation in the past. When she was admitted she was significantly bradycardic with ventricular rate in the 50s. She was on metoprolol tartrate which could have masked her going in and out of atrial fibrillation. Fortunately her echocardiogram also showed normal left of ejection fraction of 55 to 60%. We will start her on p.o. Cardizem for rate control and blood pressure control. She will need anticoagulation with Eliquis 2.5 mg twice daily renally dosed. Also, she has had poor weight loss, but yesterday we had difficulty getting an IV which slowed down diuresis. She was given 80 mg of IV Lasix this morning with mixed results. We will start her on Lasix drip this afternoon. Follow blood pressure closely. 08/01/2021 85-year-old female admitted with heart failure with preserved ejection fraction and acute on chronic renal insufficiency developed A. fib with RVR yesterday morning. Last night she did convert to sinus rhythm with her ventricular rate back in the 50s. Patient was transferred to the ICU where she was placed on Cardizem p.o. She has had some episodes of confusion. Echocardiogram showed biatrial enlargement suggesting that she likely has paroxysmal atrial fibrillation. She was switched over to Eliquis 2.5 mg twice daily. Weight is down 13 pounds from yesterday and 16 pounds overall. There is some discrepancy likely secondary to different scales being used. Lasix drip was stopped at [facility] und 4:00 this morning. Midmorning we will try albumin 12.5 g with Lasix 60 mg IV push. She is on strict I's and O's and based on her eyes and nose she is really had only approximately 2 L out which is a significant discrepancy with her daily weights. Patient was switched back to metoprolol tartrate at a lower dose of 50 mg twice daily. Acute renal injury on chronic renal disease 1admission * No recent records to compare current creatinine or GFR. * Medical records only stay chronic kidney disease, unspecified CKD stage. * Creatinine 2.0 with estimated GFR of 24 in emergency department * Anticipate worsening of renal function initially secondary to diuresis. This may improve with stopping Diovan and improving congestive heart failure * Renal disease likely exacerbated by CHF and hypoxemia Plan Hold Diovan Cautious diuresis, but will require higher doses of Lasix secondary to renal disease Renally dose medication Follow renal function closely 07/30/2021 Creatinine shows no significant change at 1.9. Continue to monitor with diu resis. 07/31/2021 Review of old records showed on 03/02/2021 she had a creatinine of 1.3 and an estimated GFR 39. This morning her creatinine was 2.0 with an estimated GFR of 24. This is significantly worse. This is making it more difficult for diuresis. We are continuing to hold her Diovan and hydrochlorothiazide. Follow blood pressures closely. 08/01/2021 Creatinine and GFR are the same as yesterday at 2.0 and 24 respectively. Renal function made it more difficult to diurese. Continue to follow closely. Hyperkalemia 07/29/2021dmission * Potassium 5.9 * EKG does not demonstrate peaked T waves, EKG does show rate of 51 bpm with a left axis deviation and left bundle branch block. Plan Stop supplemental potassium from home meds Hold Diovan Follow daily 07/30/2021 Potassium decreased to 5.2. Continue diuresis and following. Continue to hold Diovan and potassium supplementation. 07/31/2021 Potassium is down to 4.4. Continue to follow. Continue holding Diovan and potassium supplementation. 08/01/2021 Potassium is 4.2. Chronic active medical problems: Idiopathic gout, GERD, mixed hyperlipidemia, iron deficiency anemia (normal hemoglobin here) VTE prophylaxis with Lovenox CODE STATUS: DNR/DNI, confirmed with patient. Length of stay greater than 96 hours secondary to occurrence of A. fib RVR and slow diuresis secondary to renal disease.
[2021-08-01] MEDS ORDERED: Magnesium Hydroxide 400 MG/5 ML Susp 30 ML Cup PO ONE (13:31)
[2021-08-01] MEDS ORDERED: Metolazone 5 MG Tab PO ONE (14:26)
--- NOTE | 2021-08-01 14:41 | CR ---
Chest: Frontal view of the chest was obtained. Comparison: Prior chest x-ray of 07/29/21. Heart is enlarged. Pulmonary vessels are congested which are more prominent than on prior study. Patchy bilateral pleural effusions are noted. Impression: 1. Findings felt compatible with mild worsening CHF from prior x-ray. Diagnostic code #3
[2021-08-01] MEDS: Rosuvastatin 10 MG Tab PO SCH (18:15)
[2021-08-01] MEDS ORDERED: Bisacodyl 10 MG Supp RECTAL ONE (19:35)
[2021-08-01] MEDS: Melatonin 3 MG Tab PO PRN (20:25)
[2021-08-02] MEDS: Acetaminophen 325 MG Tab PO PRN (01:21)
[2021-08-02] MEDS: Furosemide 100 MG in Sodium Chloride 0.9% 90 ML IV SCH ×3 (01:37→16:45)
[2021-08-02] MEDS: Pantoprazole 40 MG Tab.CR PO SCH (06:00)
[2021-08-02] MEDS ORDERED: Magnesium Sulfate/Water 2 GM in Premix Bag 1 BAG IV ONE ×2 (08:02→10:38)
[2021-08-02] MEDS: Apixaban 2.5 MG Tab PO SCH ×2 (08:27→21:16)
[2021-08-02] MEDS: Metoprolol Tartrate 50 MG Tab PO SCH ×2 (08:27→21:14)
[2021-08-02] MEDS ORDERED: Metolazone 5 MG Tab PO ONE (13:00)
--- NOTE | 2021-08-02 17:27 | PCM.PN ---
- General Info Date of Service: 08/02/21 Admission Dx/Problem (Free Text): Admission Diagnosis/Problem Admission Diagnosis/Problem CHF, Congestive heart failure Subjective Update: Patient has had a good urine output since increasing the Lasix drip to 25 mg/h. We were able to decrease it to 20 mg/h later in the morning. Urine output has been greater than 100. Patient was up most the night, therefore slept most of the day. She was a bit confused prior to falling asleep. She did have a run of V. tach of 27 beats while sleeping. Oxygen saturations have been in the upper 90s on 3 L. - Review of Systems General: Reports: Fatigue HEENT: Reports: No Symptoms Pulmonary: Reports: No Symptoms Cardiovascular: Reports: No Symptoms Gastrointestinal: Reports: No Symptoms Musculoskeletal: Reports: No Symptoms - Patient Data Vitals - Most Recent: Last Vital Signs Temp 97 F 08/02/21 12:00 Pulse 61 08/02/21 08:27 Resp 19 08/02/21 16:01 BP 148/75 H 08/02/21 16:01 Pulse Ox 100 08/02/21 16:01 Weight - Most Recent: 145 lb I&O - Last 24 Hours: Intake & Output 08/02/21 08/02/21 08/02/21 06:59 14:59 22:59 Intake Total 390 Output Total 1155 320 Balance -1155 70 Lab Results Last 24 Hours: Laboratory Results - last 24 hr 08/02/21 08/02/21 Range/Units 05:33 05:33 WBC 5.54 (3.98-10.04) K/mm3 RBC 4.00 (3.98-5.22) M/mm3 Hgb 10.4 L (11.2-15.7) gm/dl Hct 37.0 (34.1-44.9) % MCV 92.5 (79.4-94.8) fl MCH 26.0 (25.6-32.2) pg MCHC 28.1 L (32.2-35.5) g/dl RDW Std Deviation 52.1 H (36.4-46.3) fL Plt Count 184 (182-369) K/mm3 MPV 10.2 (9.4-12.3) fl Neut % (Auto) 76.7 H (34.0-71.1) % Lymph % (Auto) 8.8 L (19.3-51.7) % [place] % (Auto) 11.9 (4.7-12.5) % Eos % (Auto) 2.2 (0.7-5.8) Baso % (Auto) 0.2 (0.1-1.2) % Neut # (Auto) 4.25 (1.56-6.13) K/mm3 Lymph # (Auto) 0.49 L (1.18-3.74) K/mm3 [place] # (Auto) 0.66 H (0.24-0.36) K/mm3 Eos # (Auto) 0.12 (0.04-0.36) K/mm3 Baso # (Auto) 0.01 (0.01-0.08) K/mm3 Manual Slide Review Normal smear Sodium 142 (136-145) mEq/L Potassium 3.7 (3.5-5.1) mEq/L Chloride 101 (98-107) mEq/L Carbon Dioxide 37 H (21-32) mEq/L Anion Gap 7.7 (5-15) BUN 38 H (7-18) mg/dL Creatinine 1.9 H (0.55-1.02) mg/dL Est Cr Clr Drug Dosing 16.63 mL/min Estimated GFR (MDRD) 25 (>60) mL/min BUN/Creatinine Ratio 20.0 H (14-18) Glucose 99 (70-99) mg/dL Calcium 8.3 L (8.5-10.1) mg/dL Phosphorus 4.3 (2.6-4.7) mg/dL Magnesium 1.7 L (1.8-2.4) mg/dL Med Orders - Current: Current Medications Acetaminophen (Acetaminophen 325 Mg Tab) 650 mg PO Q4H PRN PRN Reason: Pain (Mild 1-3)/fever Last Admin: 08/02/21 01:21 MST Dose: 650 mg Documented by: Albuterol (Albuterol 0.083% 2.5 Mg/3 Ml Neb Soln) 2.5 mg NEB Q2H PRN PRN Reason: Shortness Of Breath/wheezing Apixaban (Apixaban 2.5 Mg Tab) 2.5 mg PO BID KAIA Last Admin: 08/02/21 08:27 Dose: 2.5 mg Documented by: Diclofenac Sodium (Diclofenac Sodium 1% Gel 100 Gm Tube) 0 gm TOP ASDIRECTED PRN PRN Reason: Pain Hydralazine HCl (Hydralazine 20 Mg/Ml Sdv) 10 mg IVPUSH Q4H PRN PRN Reason: Hypertension Furosemide 100 mg/ Sodium (Chloride) 100 mls @ 10 mls/hr IV CONTINUOUS KAIA; Protocol Last Admin: 08/02/21 16:45 Dose: 15 mls/hr Documented by: Melatonin (Melatonin 3 Mg Tab) 6 mg PO BEDTIME PRN PRN Reason: Sleep Last Admin: 08/01/21 20:25 Dose: 6 mg Documented by: Metoprolol Tartrate (Metoprolol Tartrate 50 Mg Tab) 50 mg PO Q12H KAIA Last Admin: 08/02/21 08:27 Dose: 50 mg Documented by: Pantoprazole Sodium (Pantoprazole 40 Mg Tab.Cr) 40 mg PO DAILY@0700 [facility] Last Admin: 08/02/21 06:00 Dose: 40 mg Documented by: Rosuvastatin Calcium (Rosuvastatin 10 Mg Tab) 10 mg PO QPM [facility] Last Admin: 08/01/21 18:15 Dose: 10 mg Documented by: Sodium Chloride (Sodium Chloride 0.9% 10 Ml Syringe) 10 ml FLUSH ASDIRECTED PRN PRN Reason: Keep Vein Open Last Admin: 07/29/21 13:30 Dose: 10 ml Documented by: Discontinued Medications Bisacodyl (Bisacodyl 10 Mg Supp) 10 mg RECTAL ONETIME ONE Stop: 08/01/21 19:36 Last Admin: 08/01/21 19:40 Dose: 10 mg Documented by: Diltiazem HCl (Diltiazem 50 Mg/10 Ml Sdv) 10 mg IVPUSH ONETIME ONE Stop: 07/31/21 11:34 Last Admin: 07/31/21 11:43 Dose: 10 mg Documented by: Diltiazem HCl (Diltiazem Ir 30 Mg Tab) 30 mg PO Q6HR [facility] Last Admin: 07/31/21 17:57 Dose: 30 mg Documented by: Diltiazem HCl (Diltiazem Ir 30 Mg Tab) 30 mg PO ONETIME ONE Stop: 07/31/21 19:11 Last Admin: 07/31/21 19:50 Dose: 30 mg Documented by: Diltiazem HCl (Diltiazem Ir 60 Mg Tab) 60 mg PO Q8H [facility] Last Admin: 08/01/21 02:13 Dose: 60 mg Documented by: Enoxaparin Sodium (Enoxaparin 30 Mg/0.3 Ml Syringe) 30 mg SUBCUT DAILY [facility] Last Admin: 07/31/21 08:13 Dose: 30 mg Documented by: Furosemide (Furosemide 40 Mg/4 Ml Vial) 40 mg IVPUSH NOW ONE Stop: 07/29/21 13:43 Last Admin: 07/29/21 14:45 Dose: 40 mg Documented by: Furosemide (Furosemide 40 Mg/4 Ml Vial) 40 mg IVPUSH ONETIME ONE Stop: 07/29/21 18:01 Last Admin: 07/29/21 18:09 Dose: 40 mg Documented by: Furosemide (Furosemide 40 Mg/4 Ml Vial) 40 mg IVPUSH BIDDIURETIC [facility] Last Admin: 07/30/21 06:21 Dose: 40 mg Documented by: Furosemide (Furosemide 40 Mg/4 Ml Vial) 40 mg IVPUSH NOW ONE Stop: 07/30/21 08:12 Last Admin: 07/30/21 11:19 Dose: Not Given Documented by: Furosemide (Furosemide 40 Mg/4 Ml Vial) 80 mg IVPUSH BIDDIURETIC [facility] Last Admin: 07/31/21 14:05 Dose: 80 mg Documented by: Furosemide (Furosemide 100 Mg/10 Ml Sdv) 80 mg IVPUSH ONETIME ONE Stop: 07/30/21 20:01 Last Admin: 07/30/21 20:21 Dose: 80 mg Documented by: Furosemide (Furosemide 40 Mg/4 Ml Vial) 60 mg IVPUSH NOW ONE Stop: 08/01/21 09:17 Last Admin: 08/01/21 10:18 Dose: 60 mg Documented by: Furosemide (Furosemide 40 Mg/4 Ml Vial) 80 mg IVPUSH NOW ONE Stop: 08/01/21 15:34 Last Admin: 08/01/21 16:09 Dose: 80 mg Documented by: Magnesium Sulfate 4 gm/ Premix 50 mls @ 12.5 mls/hr IV ONETIME ONE Stop: 07/30/21 13:23 Last Admin: 07/30/21 11:28 Dose: 12.5 mls/hr Documented by: Albumin Human 12.5 gm/ Premix 50 mls @ 50 mls/hr IV ONETIME ONE Stop: 08/01/21 10:29 Last Admin: 08/01/21 10:19 Dose: 50 mls/hr Documented by: Magnesium Sulfate 2 gm/ Premix 50 mls @ 25 mls/hr IV ONETIME ONE Stop: 08/02/21 10:01 Last Admin: 08/02/21 08:27 Dose: 25 mls/hr Documented by: Magnesium Sulfate 2 gm/ Premix 50 mls @ 25 mls/hr IV ONETIME ONE Stop: 08/02/21 12:37 Last Admin: 08/02/21 10:52 Dose: Not Given Documented by: Magnesium Hydroxide (Magnesium Hydroxide 400 Mg/5 Ml Susp 30 Ml Cup) 30 ml PO ONETIME ONE Stop: 08/01/21 13:32 Last Admin: 08/01/21 13:41 Dose: 30 ml Documented by: Metolazone (Metolazone 5 Mg Tab) 10 mg PO ONETIME ONE Stop: 08/01/21 14:27 Last Admin: 08/01/21 14:48 Dose: 10 mg Documented by: Metolazone (Metolazone 5 Mg Tab) 10 mg PO ONETIME ONE Stop: 08/02/21 13:01 Last Admin: 08/02/21 14:53 Dose: Not Given Documented by: Metoprolol Tartrate (Metoprolol Tartrate 5 Mg/5 Ml Sdv) 5 mg IVPUSH ONETIME ONE Stop: 07/31/21 09:25 Last Admin: 07/31/21 09:30 Dose: 5 mg Documented by: Metoprolol Tartrate (Metoprolol Tartrate 5 Mg/5 Ml Sdv) 5 mg IVPUSH ONETIME ONE Stop: 07/31/21 09:55 Last Admin: 07/31/21 11:35 Dose: Not Given Documented by: Metoprolol Tartrate (Metoprolol Tartrate 5 Mg/5 Ml Sdv) Confirm Administered Dose 5 mg .ROUTE .STK-MED ONE Stop: 07/31/21 09:57 Last Admin: 07/31/21 10:00 Dose: 5 mg Documented by: - Exam Quality Assessment: Supplemental Oxygen Urinary Catheter Total Time: 2Days 5Hours General: Other (Sleeping) HEENT: Pupils Equal, Mucous Membr. Moist/[place] Neck: Supple Lungs: Normal Respiratory Effort, Crackles Cardiovascular: Regular Rhythm, Bradycardia GI/Abdominal Exam: Normal Bowel Sounds, Soft, Non-Tender, No Organomegaly, No Distention, No Abnormal Bruit, No Mass Extremities: Normal Inspection, Normal Capillary Refill, Pedal Edema (2+ pitting edema) Skin: Warm, Dry, Intact Psy/Mental Status: No: Alert - Patient Data Lab Results Last 24 hrs: Laboratory Results - last 24 hr 08/02/21 08/02/21 Range/Units 05:33 05:33 WBC 5.54 (3.98-10.04) K/mm3 RBC 4.00 (3.98-5.22) M/mm3 Hgb 10.4 L (11.2-15.7) gm/dl Hct 37.0 (34.1-44.9) % MCV 92.5 (79.4-94.8) fl MCH 26.0 (25.6-32.2) pg MCHC 28.1 L (32.2-35.5) g/dl RDW Std Deviation 52.1 H (36.4-46.3) fL Plt Count 184 (182-369) K/mm3 MPV 10.2 (9.4-12.3) fl Neut % (Auto) 76.7 H (34.0-71.1) % Lymph % (Auto) 8.8 L (19.3-51.7) % [place] % (Auto) 11.9 (4.7-12.5) % Eos % (Auto) 2.2 (0.7-5.8) Baso % (Auto) 0.2 (0.1-1.2) % Neut # (Auto) 4.25 (1.56-6.13) K/mm3 Lymph # (Auto) 0.49 L (1.18-3.74) K/mm3 [place] # (Auto) 0.66 H (0.24-0.36) K/mm3 Eos # (Auto) 0.12 (0.04-0.36) K/mm3 Baso # (Auto) 0.01 (0.01-0.08) K/mm3 Manual Slide Review Normal smear Sodium 142 (136-145) mEq/L Potassium 3.7 (3.5-5.1) mEq/L Chloride 101 (98-107) mEq/L Carbon Dioxide 37 H (21-32) mEq/L Anion Gap 7.7 (5-15) BUN 38 H (7-18) mg/dL Creatinine 1.9 H (0.55-1.02) mg/dL Est Cr Clr Drug Dosing 16.63 mL/min Estimated GFR (MDRD) 25 (>60) mL/min BUN/Creatinine Ratio 20.0 H (14-18) Glucose 99 (70-99) mg/dL Calcium 8.3 L (8.5-10.1) mg/dL Phosphorus 4.3 (2.6-4.7) mg/dL Magnesium 1.7 L (1.8-2.4) mg/dL Result Diagrams: 08/02/21 05:33 08/02/21 05:33 Sepsis Event Note - Evaluation Sepsis Screening Result: No Definite Risk - Focused Exam Vital Signs: Vital Signs Temp Pulse Resp BP Pulse Ox 08/02/21 16:01 19 148/75 H 100 08/02/21 16:00 18 99 08/02/21 15:00 16 100 08/02/21 14:01 17 129/66 100 08/02/21 14:00 18 100 08/02/21 13:00 19 99 08/02/21 12:01 17 119/55 L 100 08/02/21 12:00 97 F 15 100 08/02/21 11:00 17 100 08/02/21 10:01 14 122/52 L 99 08/02/21 10:00 18 99 08/02/21 09:00 19 99 08/02/21 08:37 97 F 24 H 90 L 08/02/21 08:29 25 H 160/66 H 90 L 08/02/21 08:28 26 H 92 L 08/02/21 08:27 61 173/68 H 08/02/21 08:22 19 173/68 H 93 L 08/02/21 08:21 28 H 91 L 08/02/21 08:00 21 H 84 L 08/02/21 07:00 21 H 93 L 08/02/21 06:01 23 H 118/42 L 96 - Problem List & Annotations (1) Hypertension SNOMED Code(s): 10054103 Code(s): I10 - ESSENTIAL (PRIMARY) HYPERTENSION Status: Acute Current Vi sit: Yes (2) CHF exacerbation SNOMED Code(s): 642571923, 28586053571444 Code(s): I50.9 - HEART FAILURE, UNSPECIFIED Status: Acute Current Visit: No Qualifiers: Heart failure type: unspecified Qualified Code(s): I50.9 - Heart failure, unspecified (3) Hyperkalemia SNOMED Code(s): 46038863 Code(s): E87.5 - HYPERKALEMIA Status: Acute Current Visit: No (4) Hypoxia SNOMED Code(s): 500194861 Code(s): R09.02 - HYPOXEMIA Status: Acute Current Visit: No (5) Renal insufficiency SNOMED Code(s): 573033595, 102429804 Code(s): N28.9 - DISORDER OF KIDNEY AND URETER, UNSPECIFIED Status: Acute Current Visit: No - Problem List Review Problem List Initiated/Reviewed/Updated: Yes - My Orders Last 24 Hours: My Active Orders 08/03/21 05:11 BASIC METABOLIC PANEL,BMP [CHEM] AM CBC WITH AUTO DIFF [HEME] AM MAGNESIUM [CHEM] AM - Plan Plan:: 85-year-old female with history of hypertension, congestive heart failure, and renal insufficiency presents to the emergency department with worsening shortness of breath, lower extremity edema, and low oxygen saturation. Exacerbation of CHF Bradycardia Hypoxemia Hypertension 07/29/2021dmission * No recent echocardiogram. * Unknown type of heart failure * Chest x-ray consistent with CHF * proBNP likely artificially elevated, but still significantly elevated at 28,193 * Given Lasix 40 mg IV in the emergency department Plan Give second dose of Lasix 40 mg IV tonight Follow I's and O's closely Aim for 7 to 10 pound weight loss over the next 36 to 72 hours Follow electrolytes closely and renal function. FiO2 to keep SPO2 greater than 92% Get echocardiogram Hold metoprolol and Diovan until bradycardia and renal function improve Blood pressure in the emergency department was elevated with systolic blood pressures between 160 and 200. Hydralazine 10 mg IV every 4 hours as needed blood pressure greater than 160/105 07/30/2021 Marginal improvement overnight. Will order an echocardiogram today. Unfortunately, they lost IV access early this morning and were unable to obtain IV access until 1400 in the afternoon. Patient will be given Lasix 80 mg x 1 and repeat at 2000 hrs. Continue to follow BMP and magnesium closely. Blood pressure continues to be significantly elevated. Hydralazine is ordered for systolic blood pressure greater than 180 or diastolic pressure greater than 105. This should improve with diuresis and restarting of her home medications. 07/31/2021 Patient went into atrial fibrillation with RVR. She was controlled with Cardizem 10 mg IV push. Echocardiogram does show moderate biatrial dilatation which would suggest that she has been in atrial fibrillation in the past. When she was admitted she was significantly bradycardic with ventricular rate in the 50s. She was on metoprolol tartrate which could have masked her going in and out of atrial fibrillation. Fortunately her echocardiogram also showed normal left of ejection fraction of 55 to 60%. We will start her on p.o. Cardizem for rate control and blood pressure control. She will need anticoagulation with Eliquis 2.5 mg twice daily renally dosed. Also, she has had poor weight loss, but yesterday we had difficulty getting an IV which slowed down diuresis. She was given 80 mg of IV Lasix this morning with mixed results. We will start her on Lasix drip this afternoon. Follow blood pressure closely. 08/01/2021 85-year-old female admitted with heart failure with preserved ejection fraction and acute on chronic renal insufficiency developed A. fib with RVR yesterday morning. Last night she did convert to sinus rhythm with her ventricular rate back in the 50s. Patient was transferred to the ICU where she was placed on Cardizem p.o. She has had some episodes of confusion. Echocardiogram showed biatrial enlargement suggesting that she likely has paroxysmal atrial fi brillation. She was switched over to Eliquis 2.5 mg twice daily. Weight is down 13 pounds from yesterday and 16 pounds overall. There is some discrepancy likely secondary to different scales being used. Lasix drip was stopped at around 4:00 this morning. Midmorning we will try albumin 12.5 g with Lasix 60 mg IV push. She is on strict I's and O's and based on her eyes and nose she is really had only approximately 2 L out which is a significant discrepancy with her daily weights. Patient was switched back to metoprolol tartrate at a lower dose of 50 mg twice daily. 08/02/2021 Significant improvement overnight and urine output. Unfortunately, patient's daily weights have been inconsistent, but she has almost 3000 mL negative fluid balance. We will continue Lasix drip overnight to continue with at least 100 mL/h of urine output. She continues on Eliquis 2.5 mg twice daily. She is on metoprolol 50 mg twice daily which is half of her normal dose. Acute renal injury on chronic renal disease 07/29/2021dmission * No recent records to compare current creatinine or GFR. * Medical records only stay chronic kidney disease, unspecified CKD stage. * Creatinine 2.0 with estimated GFR of 24 in emergency department * Anticipate worsening of renal function initially secondary to diuresis. This may improve with stopping Diovan and improving congestive heart failure * Renal disease likely exacerbated by CHF and hypoxemia Plan Hold Diovan Cautious diuresis, but will require higher doses of Lasix secondary to renal disease Renally dose medication Follow renal function closely 07/30/2021 Creatinine shows no significant change at 1.9. Continue to monitor with diuresis. 07/31/2021 Review of old records showed on 03/02/2021 she had a creatinine of 1.3 and an estimated GFR 39. This morning her creatinine was 2.0 with an estimated GFR of 24. This is significantly worse. This is making it more difficult for diuresis. We are continuing to hold her Diovan and hydrochlorothiazide. Follow blood pressures closely. 08/01/2021 Creatinine and GFR are the same as yesterday at 2.0 and 24 respectively. Renal function made it more difficult to diurese. Continue to follow closely. 08/02/2021 Creatinine has been stable since admission. Creatinine is 1.1. Continue to monitor. Hyperkalemia 07/29/2021dmission * Potassium 5.9 * EKG does not demonstrate peaked T waves, EKG does show rate of 51 bpm with a left axis deviation and left bundle branch block. Plan Stop supplemental potassium from home meds Hold Diovan Follow daily 07/30/2021 Potassium decreased to 5.2. Continue diuresis and following. Continue to hold Diovan and potassium supplementation. 07/31/2021 Potassium is down to 4.4. Continue to follow. Continue holding Diovan and potassium supplementation. 08/01/2021 Potassium is 4.2. 08/02/2021 Potassium is down to 3.7. Give 20 mEq today considering she has had a progressive decrease in her potassium since admission and she continues on a Lasix drip. Also for her mild hypomagnesemia give 2 g magnesium. Chronic active medical problems: Idiopathic gout, GERD, mixed hyperlipidemia, iron deficiency anemia (normal hemoglobin here) VTE prophylaxis with Lovenox CODE STATUS: DNR/DNI, confirmed with patient. Length of stay greater than 96 hours secondary to occurrence of A. fib RVR and slow diuresis secondary to renal disease.
[2021-08-02] MEDS: Rosuvastatin 10 MG Tab PO SCH (18:24)
[2021-08-02] MEDS: Potassium Chloride 10 MEQ in Premix Bag 1 BAG IV SCH ×2 (21:13→22:10)
[2021-08-02] MEDS: Melatonin 3 MG Tab PO PRN (21:15)
--- NOTE | 2021-08-02 23:02 | PCM.SN.2 ---
- Free Text/Narrative Note: Went to patient bedside secondary to PO2 in the low 70s. Patient was on 3 L nasal cannula which was increased to 5 L nasal cannula and oxygen saturations stayed in the 70s. ABG performed showed a pH of 7.35, PCO2 of 73, PO2 of 38, bicarb of 39, O2 saturation of 68%. Patient was placed on BiPAP 16/. Unfortunately, this machine does not have rate control. Repeat ABG showed a worsening blood gas with a pH of 7.32, PCO2 of 77, PO2 of 64, bicarb of 39, oxygen saturation of 90%. During the first ABG patient was obtunded, but during the second ABG she was much more awake and alert and talking appropriately. Repeat lab work: WBC 8.1, hemoglobin 12.5, platelets 201, sodium 141, potassium 4.0, chloride 100, bicarb 38, BUN 42, creatinine 1.8, estimated GFR 27, BNP slightly lower at 26,400, D-dimer 0.83. Chest x-ray showed congestive heart failure with hazy right basilar opacity which could be secondary to atelectasis, edema, or pneumonia. Small bilateral pleural effusions. There was not much difference from yesterday's chest x-ray. Patient was switched over to a V 60 BiPAP with rate control. Rate was initially set at 25 and repeat blood gas will be obtained in 30 to 45 minutes. At this time patient continues with appropriate questions and answers. She is a DNR/DNI.
[2021-08-03] MEDS: Furosemide 100 MG in Sodium Chloride 0.9% 90 ML IV SCH ×3 (00:56→20:16)
--- NOTE | 2021-08-03 06:58 | CR ---
Chest: Frontal view of the chest was obtained. Comparison: Prior chest x-ray of 08/01/21. Heart is enlarged. Tortuous and atherosclerotic aorta is noted. Pulmonary vessels are slightly increased but improved from prior exam. Pleural effusions are also slightly improved. Bony structures are osteopenic but show nothing acute. Impression: 1. Mild CHF which is improved from prior exam performed one day earlier. Diagnostic code #2 I agree with preliminary report from [facility], finalized on 08/02/21, 10:50 PM [facility], code 1
[2021-08-03] MEDS: Pantoprazole 40 MG Tab.CR PO SCH (08:16)
[2021-08-03] MEDS: Apixaban 2.5 MG Tab PO SCH ×2 (08:16→20:04)
--- NOTE | 2021-08-03 08:27 | PCM.PN ---
- General Info Date of Service: 08/03/21 Admission Dx/Problem (Free Text): Admission Diagnosis/Problem Admission Diagnosis/Problem CHF, Congestive heart failure Subjective Update: Worsening hypoxemic and hypercapnic respiratory failure overnight requiring BiPAP. Little improvement into the morning. Overall pH more acceptable. Remains hypercapnic with a PCO2 in the 70s. O2 status better with less work of breathing. Patient does awaken and answer questions. She states that her legs hurt. Denies any chest pain. Making clear yellow urine on Lasix infusion. Laboratory studies otherwise status quo and compared to previous. No new nursing concerns. - Patient Data Vitals - Most Recent: Last Vital Signs Temp 97.6 F 08/03/21 04:00 Pulse 65 08/02/21 21:14 Resp 26 H 08/03/21 05:00 BP 152/77 H 08/03/21 04:00 Pulse Ox 95 08/03/21 07:39 Weight - Most Recent: 134 lb 12.8 oz I&O - Last 24 Hours: Intake & Output 08/02/21 08/03/21 08/03/21 22:59 06:59 14:59 Intake Total 390 796 Output Total 770 675 Balance -380 121 Lab Results Last 24 Hours: Laboratory Results - last 24 hr 08/02/21 08/02/21 08/02/21 Range/Units 21:28 21:45 21:45 WBC 8.13 (3.98-10.04) K/mm3 RBC 4.76 (3.98-5.22) M/mm3 Hgb 12.5 D (11.2-15.7) gm/dl Hct 43.5 (34.1-44.9) % MCV 91.4 (79.4-94.8) fl MCH 26.3 (25.6-32.2) pg MCHC 28.7 L (32.2-35.5) g/dl RDW Std Deviation 51.3 H (36.4-46.3) fL Plt Count 201 (182-369) K/mm3 MPV 10.3 (9.4-12.3) fl Neut % (Auto) 78.0 H (34.0-71.1) % Lymph % (Auto) 8.6 L (19.3-51.7) % [place] % (Auto) 11.3 (4.7-12.5) % Eos % (Auto) 1.7 (0.7-5.8) Baso % (Auto) 0.2 (0.1-1.2) % Neut # (Auto) 6.33 H (1.56-6.13) K/mm3 Lymph # (Auto) 0.70 L (1.18-3.74) K/mm3 [place] # (Auto) 0.92 H (0.24-0.36) K/mm3 Eos # (Auto) 0.14 (0.04-0.36) K/mm3 Baso # (Auto) 0.02 (0.01-0.08) K/mm3 Manual Slide Review Abnormal smear D-Dimer, Quantitative (0.19-0.50) mg/L Puncture Site Rt radial ABG pH 7.35 (7.35-7.45) ABG pCO2 72.9 H* (35.0-45.0) mmHg ABG pO2 38.0 L* (80.0-100.0) mmHg ABG HCO3 39.4 H (22.0-26.0) meq/L ABG O2 Saturation 68.4 L (96.0-97.0) % ABG Base Excess 11.3 H (-2-2.0) A-a Gradient 156 mmHg O2 Delivery Device Nasal cannula Oxygen Flow Rate 5.0 FiO2 40.00 (21.00-100.00) % Blood Gas Comments Sodium 141 (136-145) mEq/L Potassium 4.0 (3.5-5.1) mEq/L Chloride 100 (98-107) mEq/L Carbon Dioxide 38 H (21-32) mEq/L Anion Gap 7.0 (5-15) BUN 42 H (7-18) mg/dL Creatinine 1.8 H (0.55-1.02) mg/dL Est Cr Clr Drug Dosing 17.56 mL/min Estimated GFR (MDRD) 27 (>60) mL/min BUN/Creatinine Ratio 23.3 H (14-18) Glucose 110 H (70-99) mg/dL Calcium 9.0 (8.5-10.1) mg/dL Magnesium 2.3 (1.8-2.4) mg/dL Troponin I 0.021 (0.00-0.056) ng/mL NT-Pro-B Natriuret Pep (0-450) pg/mL 08/02/21 08/02/21 08/02/21 Range/Units 21:45 21:45 22:32 WBC (3.98-10.04) K/mm3 RBC (3.98-5.22) M/mm3 Hgb (11.2-15.7) gm/dl Hct (34.1-44.9) % MCV (79.4-94.8) fl MCH (25.6-32.2) pg MCHC (32.2-35.5) g/dl RDW Std Deviation (36.4-46.3) fL Plt Count (182-369) K/mm3 MPV (9.4-12.3) fl Neut % (Auto) (34.0-71.1) % Lymph % (Auto) (19.3-51.7) % [place] % (Auto) (4.7-12.5) % Eos % (Auto) (0.7-5.8) Baso % (Auto) (0.1-1.2) % Neut # (Auto) (1.56-6.13) K/mm3 Lymph # (Auto) (1.18-3.74) K/mm3 [place] # (Auto) (0.24-0.36) K/mm3 Eos # (Auto) (0.04-0.36) K/mm3 Baso # (Auto) (0.01-0.08) K/mm3 Manual Slide Review D-Dimer, Quantitative 0.83 H (0.19-0.50) mg/L Puncture Site Lt brachial ABG pH 7.32 L (7.35-7.45) ABG pCO2 77.1 H* (35.0-45.0) mmHg ABG pO2 64.0 L (80.0-100.0) mmHg ABG HCO3 38.9 H (22.0-26.0) meq/L ABG O2 Saturation 90.3 L (96.0-97.0) % ABG Base Excess 10.4 H (-2-2.0) A-a Gradient 125 mmHg O2 Delivery Device Bipap Oxygen Flow Rate 5.0 FiO2 40.00 (21.00-100.00) % Blood Gas Comments Sodium (136-145) mEq/L Potassium (3.5-5.1) mEq/L Chloride (98-107) mEq/L Carbon Dioxide (21-32) mEq/L Anion Gap (5-15) BUN (7-18) mg/dL Creatinine (0.55-1.02) mg/dL Est Cr Clr Drug Dosing mL/min Estimated GFR (MDRD) (>60) mL/min BUN/Creatinine Ratio (14-18) Glucose (70-99) mg/dL Calcium (8.5-10.1) mg/dL Magnesium (1.8-2.4) mg/dL Troponin I (0.00-0.056) ng/mL NT-Pro-B Natriuret Pep 23744 H (0-450) pg/mL 08/02/21 08/03/21 08/03/21 Range/Units 23:45 00:35 03:55 WBC (3.98-10.04) K/mm3 RBC (3.98-5.22) M/mm3 Hgb (11.2-15.7) gm/dl Hct (34.1-44.9) % MCV (79.4-94.8) fl MCH (25.6-32.2) pg MCHC (32.2-35.5) g/dl RDW Std Deviation (36.4-46.3) fL Plt Count (182-369) K/mm3 MPV (9.4-12.3) fl Neut % (Auto) (34.0-71.1) % Lymph % (Auto) (19.3-51.7) % [place] % (Auto) (4.7-12.5) % Eos % (Auto) (0.7-5.8) Baso % (Auto) (0.1-1.2) % Neut # (Auto) (1.56-6.13) K/mm3 Lymph # (Auto) (1.18-3.74) K/mm3 [place] # (Auto) (0.24-0.36) K/mm3 Eos # (Auto) (0.04-0.36) K/mm3 Baso # (Auto) (0.01-0.08) K/mm3 Manual Slide Review D-Dimer, Quantitative (0.19-0.50) mg/L Puncture Site Rt radial Rt radial Rt radial ABG pH 7.31 L 7.31 L 7.33 L (7.35-7.45) ABG pCO2 80.2 H* 79.5 H* 79.7 H* (35.0-45.0) mmHg ABG pO2 76.0 L 77.0 L 71.0 L (80.0-100.0) mmHg ABG HCO3 39.2 H 38.9 H 40.6 H (22.0-26.0) meq/L ABG O2 Saturation 94.1 L 94.7 L 94.0 L (96.0-97.0) % ABG Base Excess 10.4 H 10.2 H 12.0 H (-2-2.0) A-a Gradient 109 109 114 mmHg O2 Delivery Device Bipap Bipap Bipap Oxygen Flow Rate FiO2 40.00 40.00 40.00 (21.00-100.00) % Blood Gas Comments Bipap 12/6 Bipap 14/5 Bipap 15/7 Sodium (136-145) mEq/L Potassium (3.5-5.1) mEq/L Chloride (98-107) mEq/L Carbon Dioxide (21-32) mEq/L Anion Gap (5-15) BUN (7-18) mg/dL Creatinine (0.55-1.02) mg/dL Est Cr Clr Drug Dosing mL/min Estimated GFR (MDRD) (>60) mL/min BUN/Creatinine Ratio (14-18) Glucose (70-99) mg/dL Calcium (8.5-10.1) mg/dL Magnesium (1.8-2.4) mg/dL Troponin I (0.00-0.056) ng/mL NT-Pro-B Natriuret Pep (0-450) pg/mL 08/03/21 08/03/21 08/03/21 Range/Units 06:00 06:00 06:36 WBC 7.05 (3.98-10.04) K/mm3 RBC 4.63 (3.98-5.22) M/mm3 Hgb 12.2 (11.2-15.7) gm/dl Hct 42.6 (34.1-44.9) % MCV 92.0 (79.4-94.8) fl MCH 26.3 (25.6-32.2) pg MCHC 28.6 L (32.2-35.5) g/dl RDW Std Deviation 51.9 H (36.4-46.3) fL Plt Count 186 (182-369) K/mm3 MPV 10.4 (9.4-12.3) fl Neut % (Auto) 73.9 H (34.0-71.1) % Lymph % (Auto) 9.9 L (19.3-51.7) % [place] % (Auto) 13.9 H (4.7-12.5) % Eos % (Auto) 2.0 (0.7-5.8) Baso % (Auto) 0.3 (0.1-1.2) % Neut # (Auto) 5.21 (1.56-6.13) K/mm3 Lymph # (Auto) 0.70 L (1.18-3.74) K/mm3 [place] # (Auto) 0.98 H (0.24-0.36) K/mm3 Eos # (Auto) 0.14 (0.04-0.36) K/mm3 Baso # (Auto) 0.02 (0.01-0.08) K/mm3 Manual Slide Review Abnormal smear D-Dimer, Quantitative (0.19-0.50) mg/L Puncture Site Rt radial ABG pH 7.33 L (7.35-7.45) ABG pCO2 79.0 H* (35.0-45.0) mmHg ABG pO2 77.0 L (80.0-100.0) mmHg ABG HCO3 40.5 H (22.0-26.0) meq/L ABG O2 Saturation 95.0 L (96.0-97.0) % ABG Base Excess 12.0 H (-2-2.0) A-a Gradient 110 mmHg O2 Delivery Device Bipap Oxygen Flow Rate FiO2 40.00 (21.00-100.00) % Blood Gas Comments Bipap 15/8 Sodium 145 (136-145) mEq/L Potassium 4.4 (3.5-5.1) mEq/L Chloride 101 (98-107) mEq/L Carbon Dioxide 39 H (21-32) mEq/L Anion Gap 9.4 (5-15) BUN 44 H (7-18) mg/dL Creatinine 1.8 H (0.55-1.02) mg/dL Est Cr Clr Drug Dosing 17.56 mL/min Estimated GFR (MDRD) 27 (>60) mL/min BUN/Creatinine Ratio 24.4 H (14-18) Glucose 76 (70-99) mg/dL Calcium 8.9 (8.5-10.1) mg/dL Magnesium 2.3 (1.8-2.4) mg/dL Troponin I (0.00-0.056) ng/mL NT-Pro-B Natriuret Pep (0-450) pg/mL Med Orders - Current: Current Medications Acetaminophen (Acetaminophen 325 Mg Tab) 650 mg PO Q4H PRN PRN Reason: Pain (Mild 1-3)/fever Last Admin: 08/02/21 01:21 MST Dose: 650 mg Documented by: Apixaban (Apixaban 2.5 Mg Tab) 2.5 mg PO BID KAIA Last Admin: 08/02/21 21:16 Dose: 2.5 mg Documented by: Diclofenac Sodium (Diclofenac Sodium 1% Gel 100 Gm Tube) 0 gm TOP ASDIRECTED PRN PRN Reason: Pain Hydralazine HCl (Hydralazine 20 Mg/Ml Sdv) 10 mg IVPUSH Q4H PRN PRN Reason: Hypertension Furosemide 100 mg/ Sodium (Chloride) 100 mls @ 10 mls/hr IV CONTINUOUS KAIA; Protocol Last Admin: 08/03/21 00:56 Dose: 10 mls/hr Documented by: Levalbuterol HCl (Levalbuterol Hcl 1.25 Mg/3 Ml Neb) 1.25 mg NEB Q4H KAIA Melatonin (Melatonin 3 Mg Tab) 6 mg PO BEDTIME PRN PRN Reason: Sleep Last Admin: 08/02/21 21:15 Dose: 6 mg Documented by: Metoprolol Tartrate (Metoprolol Tartrate 50 Mg Tab) 50 mg PO Q12H KAIA Last Admin: 08/02/21 21:14 Dose: 50 mg Documented by: Pantoprazole Sodium (Pantoprazole 40 Mg Tab.Cr) 40 mg PO DAILY@0700 KAIA Last Admin: 08/02/21 06:00 Dose: 40 mg Documented by: Rosuvastatin Calcium (Rosuvastatin 10 Mg Tab) 10 mg PO QPM KAIA Last Admin: 08/02/21 18:24 Dose: 10 mg Documented by: Sodium Chloride (Sodium Chloride 0.9% 10 Ml Syringe) 10 ml FLUSH ASDIRECTED PRN PRN Reason: Keep Vein Open Last Admin: 07/29/21 13:30 Dose: 10 ml Documented by: Discontinued Medications Albuterol (Albuterol 0.083% 2.5 Mg/3 Ml Neb Soln) 2.5 mg NEB Q2H PRN PRN Reason: Shortness Of Breath/wheezing Last Admin: 08/03/21 07:39 Dose: 2.5 mg Documented by: Bisacodyl (Bisacodyl 10 Mg Supp) 10 mg RECTAL ONETIME ONE Stop: 08/01/21 19:36 Last Admin: 08/01/21 19:40 Dose: 10 mg Documented by: Diltiazem HCl (Diltiazem 50 Mg/10 Ml Sdv) 10 mg IVPUSH ONETIME ONE Stop: 07/31/21 11:34 Last Admin: 07/31/21 11:43 Dose: 10 mg Documented by: Diltiazem HCl (Diltiazem Ir 30 Mg Tab) 30 mg PO Q6HR [facility] Last Admin: 07/31/21 17:57 Dose: 30 mg Documented by: Diltiazem HCl (Diltiazem Ir 30 Mg Tab) 30 mg PO ONETIME ONE Stop: 07/31/21 19:11 Last Admin: 07/31/21 19:50 Dose: 30 mg Documented by: Diltiazem HCl (Diltiazem Ir 60 Mg Tab) 60 mg PO Q8H [facility] Last Admin: 08/01/21 02:13 Dose: 60 mg Documented by: Enoxaparin Sodium (Enoxaparin 30 Mg/0.3 Ml Syringe) 30 mg SUBCUT DAILY [facility] Last Admin: 07/31/21 08:13 Dose: 30 mg Documented by: Furosemide (Furosemide 40 Mg/4 Ml Vial) 40 mg IVPUSH NOW ONE Stop: 07/29/21 13:43 Last Admin: 07/29/21 14:45 Dose: 40 mg Documented by: Furosemide (Furosemide 40 Mg/4 Ml Vial) 40 mg IVPUSH ONETIME ONE Stop: 07/29/21 18:01 Last Admin: 07/29/21 18:09 Dose: 40 mg Documented by: Furosemide (Furosemide 40 Mg/4 Ml Vial) 40 mg IVPUSH BIDDIURETIC [facility] Last Admin: 07/30/21 06:21 Dose: 40 mg Documented by: Furosemide (Furosemide 40 Mg/4 Ml Vial) 40 mg IVPUSH NOW ONE Stop: 07/30/21 08:12 Last Admin: 07/30/21 11:19 Dose: Not Given Documented by: Furosemide (Furosemide 40 Mg/4 Ml Vial) 80 mg IVPUSH BIDDIURETIC KAIA Last Admin: 07/31/21 14:05 Dose: 80 mg Documented by: Furosemide (Furosemide 100 Mg/10 Ml Sdv) 80 mg IVPUSH ONETIME ONE Stop: 07/30/21 20:01 Last Admin: 07/30/21 20:21 Dose: 80 mg Documented by: Furosemide (Furosemide 40 Mg/4 Ml Vial) 60 mg IVPUSH NOW ONE Stop: 08/01/21 09:17 Last Admin: 08/01/21 10:18 Dose: 60 mg Documented by: Furosemide (Furosemide 40 Mg/4 Ml Vial) 80 mg IVPUSH NOW ONE Stop: 08/01/21 15:34 Last Admin: 08/01/21 16:09 Dose: 80 mg Documented by: Magnesium Sulfate 4 gm/ Premix 50 mls @ 12.5 mls/hr IV ONETIME ONE Stop: 07/30/21 13:23 Last Admin: 07/30/21 11:28 Dose: 12.5 mls/hr Documented by: Albumin Human 12.5 gm/ Premix 50 mls @ 50 mls/hr IV ONETIME ONE Stop: 08/01/21 10:29 Last Admin: 08/01/21 10:19 Dose: 50 mls/hr Documented by: Magnesium Sulfate 2 gm/ Premix 50 mls @ 25 mls/hr IV ONETIME ONE Stop: 08/02/21 10:01 Last Admin: 08/02/21 08:27 Dose: 25 mls/hr Documented by: Magnesium Sulfate 2 gm/ Premix 50 mls @ 25 mls/hr IV ONETIME ONE Stop: 08/02/21 12:37 Last Admin: 08/02/21 10:52 Dose: Not Given Documented by: Potassium Chloride 10 meq/ (Premix) 100 mls @ 100 mls/hr IV Q1H KAIA Stop: 08/02/21 22:14 Last Admin: 08/02/21 22:10 Dose: 100 mls/hr Documented by: Magnesium Hydroxide (Magnesium Hydroxide 400 Mg/5 Ml Susp 30 Ml Cup) 30 ml PO ONETIME ONE Stop: 08/01/21 13:32 Last Admin: 08/01/21 13:41 Dose: 30 ml Documented by: Metolazone (Metolazone 5 Mg Tab) 10 mg PO ONETIME ONE Stop: 08/01/21 14:27 Last Admin: 08/01/21 14:48 Dose: 10 mg Documented by: Metolazone (Metolazone 5 Mg Tab) 10 mg PO ONETIME ONE Stop: 08/02/21 13:01 Last Admin: 08/02/21 14:53 Dose: Not Given Documented by: Metoprolol Tartrate (Metoprolol Tartrate 5 Mg/5 Ml Sdv) 5 mg IVPUSH ONETIME ONE Stop: 07/31/21 09:25 Last Admin: 07/31/21 09:30 Dose: 5 mg Documented by: Metoprolol Tartrate (Metoprolol Tartrate 5 Mg/5 Ml Sdv) 5 mg IVPUSH ONETIME ONE Stop: 07/31/21 09:55 Last Admin: 07/31/21 11:35 Dose: Not Given Documented by: Metoprolol Tartrate (Metoprolol Tartrate 5 Mg/5 Ml Sdv) Confirm Administered Dose 5 mg .ROUTE .STK-MED ONE Stop: 07/31/21 09:57 Last Admin: 07/31/21 10:00 Dose: 5 mg Documented by: - Exam Quality Assessment: Supplemental Oxygen (Pap at 16/7), Urine Catheter (And clear yellow urine) Urinary Catheter Total Time: 2Days 17Hours General: Alert, Mild Distress HEENT: Pupils Equal Neck: Supple, Trachea Midline. No: JVD Lungs: Decreased Breath Sounds, Rhonchi (Fuhs rhonchorous sounds) Cardiovascular: Other (Regular rate with a left bundle on the monitor.) GI/Abdominal Exam: Normal Bowel Sounds, Soft, Non-Tender Extremities: Pedal Edema (Mild) Skin: Warm, Dry Neurological: No New Focal Deficit - Patient Data Lab Results Last 24 hrs: Laboratory Results - last 24 hr 08/02/21 08/02/21 08/02/21 Range/Units 21:28 21:45 21:45 WBC 8.13 (3.98-10.04) K/mm3 RBC 4.76 (3.98-5.22) M/mm3 Hgb 12.5 D (11.2-15.7) gm/dl Hct 43.5 (34.1-44.9) % MCV 91.4 (79.4-94.8) fl MCH 26.3 (25.6-32.2) pg MCHC 28.7 L (32.2-35.5) g/dl RDW Std Deviation 51.3 H (36.4-46.3) fL Plt Count 201 (182-369) K/mm3 MPV 10.3 (9.4-12.3) fl Neut % (Auto) 78.0 H (34.0-71.1) % Lymph % (Auto) 8.6 L (19.3-51.7) % [place] % (Auto) 11.3 (4.7-12.5) % Eos % (Auto) 1.7 (0.7-5.8) Baso % (Auto) 0.2 (0.1-1.2) % Neut # (Auto) 6.33 H (1.56-6.13) K/mm3 Lymph # (Auto) 0.70 L (1.18-3.74) K/mm3 [place] # (Auto) 0.92 H (0.24-0.36) K/mm3 Eos # (Auto) 0.14 (0.04-0.36) K/mm3 Baso # (Auto) 0.02 (0.01-0.08) K/mm3 Manual Slide Review Abnormal smear D-Dimer, Quantitative (0.19-0.50) mg/L Puncture Site Rt radial ABG pH 7.35 (7.35-7.45) ABG pCO2 72.9 H* (35.0-45.0) mmHg ABG pO2 38.0 L* (80.0-100.0) mmHg ABG HCO3 39.4 H (22.0-26.0) meq/L ABG O2 Saturation 68.4 L (96.0-97.0) % ABG Base Excess 11.3 H (-2-2.0) A-a Gradient 156 mmHg O2 Delivery Device Nasal cannula Oxygen Flow Rate 5.0 FiO2 40.00 (21.00-100.00) % Blood Gas Comments Sodium 141 (136-145) mEq/L Potassium 4.0 (3.5-5.1) mEq/L Chloride 100 (98-107) mEq/L Carbon Dioxide 38 H (21-32) mEq/L Anion Gap 7.0 (5-15) BUN 42 H (7-18) mg/dL Creatinine 1.8 H (0.55-1.02) mg/dL Est Cr Clr Drug Dosing 17.56 mL/min Estimated GFR (MDRD) 27 (>60) mL/min BUN/Creatinine Ratio 23.3 H (14-18) Glucose 110 H (70-99) mg/dL Calcium 9.0 (8.5-10.1) mg/dL Magnesium 2.3 (1.8-2.4) mg/dL Troponin I 0.021 (0.00-0.056) ng/mL NT-Pro-B Natriuret Pep (0-450) pg/mL 08/02/21 08/02/21 08/02/21 Range/Units 21:45 21:45 22:32 WBC (3.98-10.04) K/mm3 RBC (3.98-5.22) M/mm3 Hgb (11.2-15.7) gm/dl Hct (34.1-44.9) % MCV (79.4-94.8) fl MCH (25.6-32.2) pg MCHC (32.2-35.5) g/dl RDW Std Deviation (36.4-46.3) fL Plt Count (182-369) K/mm3 MPV (9.4-12.3) fl Neut % (Auto) (34.0-71.1) % Lymph % (Auto) (19.3-51.7) % [place] % (Auto) (4.7-12.5) % Eos % (Auto) (0.7-5.8) Baso % (Auto) (0.1-1.2) % Neut # (Auto) (1.56-6.13) K/mm3 Lymph # (Auto) (1.18-3.74) K/mm3 [place] # (Auto) (0.24-0.36) K/mm3 Eos # (Auto) (0.04-0.36) K/mm3 Baso # (Auto) (0.01-0.08) K/mm3 Manual Slide Review D-Dimer, Quantitative 0.83 H (0.19-0.50) mg/L Puncture Site Lt brachial ABG pH 7.32 L (7.35-7.45) ABG pCO2 77.1 H* (35.0-45.0) mmHg ABG pO2 64.0 L (80.0-100.0) mmHg ABG HCO3 38.9 H (22.0-26.0) meq/L ABG O2 Saturation 90.3 L (96.0-97.0) % ABG Base Excess 10.4 H (-2-2.0) A-a Gradient 125 mmHg O2 Delivery Device Bipap Oxygen Flow Rate 5.0 FiO2 40.00 (21.00-100.00) % Blood Gas Comments Sodium (136-145) mEq/L Potassium (3.5-5.1) mEq/L Chloride (98-107) mEq/L Carbon Dioxide (21-32) mEq/L Anion Gap (5-15) BUN (7-18) mg/dL Creatinine (0.55-1.02) mg/dL Est Cr Clr Drug Dosing mL/min Estimated GFR (MDRD) (>60) mL/min BUN/Creatinine Ratio (14-18) Glucose (70-99) mg/dL Calcium (8.5-10.1) mg/dL Magnesium (1.8-2.4) mg/dL Troponin I (0.00-0.056) ng/mL NT-Pro-B Natriuret Pep 72671 H (0-450) pg/mL 08/02/21 08/03/21 08/03/21 Range/Units 23:45 00:35 03:55 WBC (3.98-10.04) K/mm3 RBC (3.98-5.22) M/mm3 Hgb (11.2-15.7) gm/dl Hct (34.1-44.9) % MCV (79.4-94.8) fl MCH (25.6-32.2) pg MCHC (32.2-35.5) g/dl RDW Std Deviation (36.4-46.3) fL Plt Count (182-369) K/mm3 MPV (9.4-12.3) fl Neut % (Auto) (34.0-71.1) % Lymph % (Auto) (19.3-51.7) % [place] % (Auto) (4.7-12.5) % Eos % (Auto) (0.7-5.8) Baso % (Auto) (0.1-1.2) % Neut # (Auto) (1.56-6.13) K/mm3 Lymph # (Auto) (1.18-3.74) K/mm3 [place] # (Auto) (0.24-0.36) K/mm3 Eos # (Auto) (0.04-0.36) K/mm3 Baso # (Auto) (0.01-0.08) K/mm3 Manual Slide Review D-Dimer, Quantitative (0.19-0.50) mg/L Puncture Site Rt radial Rt radial Rt radial ABG pH 7.31 L 7.31 L 7.33 L (7.35-7.45) ABG pCO2 80.2 H* 79.5 H* 79.7 H* (35.0-45.0) mmHg ABG pO2 76.0 L 77.0 L 71.0 L (80.0-100.0) mmHg ABG HCO3 39.2 H 38.9 H 40.6 H (22.0-26.0) meq/L ABG O2 Saturation 94.1 L 94.7 L 94.0 L (96.0-97.0) % ABG Base Excess 10.4 H 10.2 H 12.0 H (-2-2.0) A-a Gradient 109 109 114 mmHg O2 Delivery Device Bipap Bipap Bipap Oxygen Flow Rate FiO2 40.00 40.00 40.00 (21.00-100.00) % Blood Gas Comments Bipap 12/6 Bipap 14/5 Bipap 15/7 Sodium (136-145) mEq/L Potassium (3.5-5.1) mEq/L Chloride (98-107) mEq/L Carbon Dioxide (21-32) mEq/L Anion Gap (5-15) BUN (7-18) mg/dL Creatinine (0.55-1.02) mg/dL Est Cr Clr Drug Dosing mL/min Estimated GFR (MDRD) (>60) mL/min BUN/Creatinine Ratio (14-18) Glucose (70-99) mg/dL Calcium (8.5-10.1) mg/dL Magnesium (1.8-2.4) mg/dL Troponin I (0.00-0.056) ng/mL NT-Pro-B Natriuret Pep (0-450) pg/mL 08/03/21 08/03/21 08/03/21 Range/Units 06:00 06:00 06:36 WBC 7.05 (3.98-10.04) K/mm3 RBC 4.63 (3.98-5.22) M/mm3 Hgb 12.2 (11.2-15.7) gm/dl Hct 42.6 (34.1-44.9) % MCV 92.0 (79.4-94.8) fl MCH 26.3 (25.6-32.2) pg MCHC 28.6 L (32.2-35.5) g/dl RDW Std Deviation 51.9 H (36.4-46.3) fL Plt Count 186 (182-369) K/mm3 MPV 10.4 (9.4-12.3) fl Neut % (Auto) 73.9 H (34.0-71.1) % Lymph % (Auto) 9.9 L (19.3-51.7) % [place] % (Auto) 13.9 H (4.7-12.5) % Eos % (Auto) 2.0 (0.7-5.8) Baso % (Auto) 0.3 (0.1-1.2) % Neut # (Auto) 5.21 (1.56-6.13) K/mm3 Lymph # (Auto) 0.70 L (1.18-3.74) K/mm3 [place] # (Auto) 0.98 H (0.24-0.36) K/mm3 Eos # (Auto) 0.14 (0.04-0.36) K/mm3 Baso # (Auto) 0.02 (0.01-0.08) K/mm3 Manual Slide Review Abnormal smear D-Dimer, Quantitative (0.19-0.50) mg/L Puncture Site Rt radial ABG pH 7.33 L (7.35-7.45) ABG pCO2 79.0 H* (35.0-45.0) mmHg ABG pO2 77.0 L (80.0-100.0) mmHg ABG HCO3 40.5 H (22.0-26.0) meq/L ABG O2 Saturation 95.0 L (96.0-97.0) % ABG Base Excess 12.0 H (-2-2.0) A-a Gradient 110 mmHg O2 Delivery Device Bipap Oxygen Flow Rate FiO2 40.00 (21.00-100.00) % Blood Gas Comments Bipap 15/8 Sodium 145 (136-145) mEq/L Potassium 4.4 (3.5-5.1) mEq/L Chloride 101 (98-107) mEq/L Carbon Dioxide 39 H (21-32) mEq/L Anion Gap 9.4 (5-15) BUN 44 H (7-18) mg/dL Creatinine 1.8 H (0.55-1.02) mg/dL Est Cr Clr Drug Dosing 17.56 mL/min Estimated GFR (MDRD) 27 (>60) mL/min BUN/Creatinine Ratio 24.4 H (14-18) Glucose 76 (70-99) mg/dL Calcium 8.9 (8.5-10.1) mg/dL Magnesium 2.3 (1.8-2.4) mg/dL Troponin I (0.00-0.056) ng/mL NT-Pro-B Natriuret Pep (0-450) pg/mL Result Diagrams: 08/03/21 06:00 08/03/21 06:00 Sepsis Event Note - Evaluation Sepsis Screening Result: No Definite Risk - Focused Exam Vital Signs: Vital Signs Temp Pulse Resp BP BP Pulse Ox Pulse Ox 08/03/21 07:39 95 08/03/21 05:00 26 H 99 08/03/21 04:00 97.6 F 18 152/77 H 93 L 08/03/21 02:00 20 93 L 08/03/21 01:00 20 100 08/03/21 00:50 98 08/03/21 00:00 97.6 F 20 136/100 H 99 08/02/21 23:00 26 H 94 L 08/02/21 22:12 20 94 L 08/02/21 22:09 20 137/76 93 L 08/02/21 22:00 15 98 08/02/21 21:50 08/02/21 21:14 65 132/94 H 08/02/21 21:00 30 H 86 L Pulse Ox 08/03/21 07:39 08/03/21 05:00 08/03/21 04:00 08/03/21 02:00 08/03/21 01:00 08/03/21 00:50 08/03/21 00:00 08/02/21 23:00 08/02/21 22:12 08/02/21 22:09 08/02/21 22:00 08/02/21 21:50 96 08/02/21 21:14 08/02/21 21:00 - Problem List Review Problem List Initiated/Reviewed/Updated: Yes - My Orders Last 24 Hours: My Active Orders 08/03/21 09:15 ABG [BLOOD GAS ARTERIAL] [BG] Urgent 08/03/21 12:00 levalbuterol HCL [Xopenex] 1.25 mg NEB Q4H - Plan Plan:: 85-year-old female with history of hypertension, congestive heart failure, and renal insufficiency presents to the emergency department with worsening shortness of breath, lower extremity edema, and low oxygen saturation. 1. Hypercapnic and hypoxemic respiratory failure. Continue advanced respiratory support with BiPAP with current settings. Repeat ABG in an hour. Titrate as necessary. Xopenex every 4 hours. Repeat imaging later today for maintenance examination. No gross change in comparison to previous at 930 last night comparing to the previous day. May consider starting steroids. Continue RT consult 2. Acute kidney injury. No baseline for comparison. Numbers have stayed status quo over the past 2 days. Continue to monitor chemistries intermittently. Replace electrolytes as necessary. Monitor volume status as she is on a Lasix infusion. 3. Hyperkalemia. Currently within normal limits. We will treat as necessary. Patient is on Lasix infusion which should prevent higher levels. Intermittent check of labs. 4. Atrial fibrillation with rapid ventricular response. Is now in a regular rhythm with a left bundle. See previous notes. Was initially requiring higher doses of karina agents. Continue telemetry monitoring. Echocardiogram showing normal EF, acceptable right heart pressures. 5. Acute on chronic diastolic congestive heart failure. Continue RT treatments as noted above. Lasix infusion. Monitor labs intermittently. We will trend BNP. Maintenance imaging again later today. Echo completed. CODE STATUS: DNR/DNI. DVT prophylaxis; systemic anticoagulation with apixaban.
[2021-08-03] MEDS: Metoprolol Tartrate 50 MG Tab PO SCH ×2 (09:00→20:04)
[2021-08-03] MEDS: methylPREDNISolone Sodium Succinate 40 MG/1 ML SDV IVPUSH SCH ×3 (10:12→21:39)
[2021-08-03] MEDS: Levalbuterol HCl 1.25 MG/3 ML Neb NEB SCH ×3 (11:49→20:16)
[2021-08-03] MEDS: Rosuvastatin 10 MG Tab PO SCH (17:04)
[2021-08-03] MEDS: Acetaminophen 325 MG Tab PO PRN (22:55)
[2021-08-03] MEDS: Melatonin 3 MG Tab PO PRN (22:56)
[2021-08-04] MEDS: Levalbuterol HCl 1.25 MG/3 ML Neb NEB SCH ×3 (00:46→09:16)
[2021-08-04] MEDS: methylPREDNISolone Sodium Succinate 40 MG/1 ML SDV IVPUSH SCH ×4 (05:16→21:38)
[2021-08-04] MEDS: Furosemide 100 MG in Sodium Chloride 0.9% 90 ML IV SCH (07:26)
[2021-08-04] MEDS: Metoprolol Tartrate 50 MG Tab PO SCH ×2 (08:05→20:07)
[2021-08-04] MEDS: Pantoprazole 40 MG Tab.CR PO SCH (08:08)
[2021-08-04] MEDS: Apixaban 2.5 MG Tab PO SCH ×2 (08:09→20:07)
[2021-08-04] MEDS ORDERED: Potassium Chloride 10 MEQ in Premix Bag 1 BAG IV SCH (08:45)
--- NOTE | 2021-08-04 09:06 | PCM.PN ---
- General Info Date of Service: 08/04/21 Admission Dx/Problem (Free Text): Admission Diagnosis/Problem Admission Diagnosis/Problem CHF, Congestive heart failure Subjective Update: No acute events overnight. No new nursing concerns. Patient had been awake and off and was refusing BiPAP and taking it off at random. Appeared to have been ventilating so there was no concern. Continues with high urine outputs. No complications with atrial arrhythmias. Patient really does not quantify or qualify any symptoms today. She does not say that she feels worse, however. Only requiring nasal cannula supplemental oxygen at this point. High-dose steroids started yesterday. - Patient Data Vitals - Most Recent: Last Vital Signs Temp 97.0 F 08/04/21 08:00 Pulse 64 08/04/21 08:05 Resp 26 H 08/04/21 08:00 BP 181/50 H 08/04/21 08:05 Pulse Ox 92 L 08/04/21 08:00 Weight - Most Recent: 137 lb 14.4 oz I&O - Last 24 Hours: Intake & Output 08/03/21 08/04/21 08/04/21 22:59 06:59 14:59 Intake Total 681 417 Output Total 870 1895 Balance -189 -1478 Lab Results Last 24 Hours: Laboratory Results - last 24 hr 08/03/21 08/03/21 08/04/21 Range/Units 09:23 12:07 05:37 WBC 3.13 L (3.98-10.04) K/mm3 RBC 4.75 (3.98-5.22) M/mm3 Hgb 12.4 (11.2-15.7) gm/dl Hct 41.9 (34.1-44.9) % MCV 88.2 D (79.4-94.8) fl MCH 26.1 (25.6-32.2) pg MCHC 29.6 L (32.2-35.5) g/dl RDW Std Deviation 50.9 H (36.4-46.3) fL Plt Count 186 (182-369) K/mm3 MPV 10.9 (9.4-12.3) fl Neut % (Auto) 86.9 H (34.0-71.1) % Lymph % (Auto) 10.9 L (19.3-51.7) % [place] % (Auto) 1.9 L (4.7-12.5) % Eos % (Auto) 0 L (0.7-5.8) Baso % (Auto) 0.0 L (0.1-1.2) % Neut # (Auto) 2.72 (1.56-6.13) K/mm3 Lymph # (Auto) 0.34 L (1.18-3.74) K/mm3 [place] # (Auto) 0.06 L (0.24-0.36) K/mm3 Eos # (Auto) 0.00 L (0.04-0.36) K/mm3 Baso # (Auto) 0.00 L (0.01-0.08) K/mm3 Puncture Site Rt radial Rt radial ABG pH 7.35 7.39 (7.35-7.45) ABG pCO2 75.9 H* 69.9 H (35.0-45.0) mmHg ABG pO2 78.0 L 78.0 L (80.0-100.0) mmHg ABG HCO3 40.5 H 40.9 H (22.0-26.0) meq/L ABG O2 Saturation 95.5 L 95.9 L (96.0-97.0) % ABG Base Excess 12.2 H 13.1 H (-2-2.0) Hieu Test Positive A-a Gradient 112 119 mmHg O2 Delivery Device Bipap 16/7 Bipap 18/9 FiO2 40.00 40.00 (21.00-100.00) % Sodium (136-145) mEq/L Potassium (3.5-5.1) mEq/L Chloride (98-107) mEq/L Carbon Dioxide (21-32) mEq/L Anion Gap (5-15) BUN (7-18) mg/dL Creatinine (0.55-1.02) mg/dL Est Cr Clr Drug Dosing mL/min Estimated GFR (MDRD) (>60) mL/min BUN/Creatinine Ratio (14-18) Glucose (70-99) mg/dL Calcium (8.5-10.1) mg/dL NT-Pro-B Natriuret Pep (0-450) pg/mL 08/04/21 08/04/21 Range/Units 05:37 05:37 WBC (3.98-10.04) K/mm3 RBC (3.98-5.22) M/mm3 Hgb (11.2-15.7) gm/dl Hct (34.1-44.9) % MCV (79.4-94.8) fl MCH (25.6-32.2) pg MCHC (32.2-35.5) g/dl RDW Std Deviation (36.4-46.3) fL Plt Count (182-369) K/mm3 MPV (9.4-12.3) fl Neut % (Auto) (34.0-71.1) % Lymph % (Auto) (19.3-51.7) % [place] % (Auto) (4.7-12.5) % Eos % (Auto) (0.7-5.8) Baso % (Auto) (0.1-1.2) % Neut # (Auto) (1.56-6.13) K/mm3 Lymph # (Auto) (1.18-3.74) K/mm3 [place] # (Auto) (0.24-0.36) K/mm3 Eos # (Auto) (0.04-0.36) K/mm3 Baso # (Auto) (0.01-0.08) K/mm3 Puncture Site ABG pH (7.35-7.45) ABG pCO2 (35.0-45.0) mmHg ABG pO2 (80.0-100.0) mmHg ABG HCO3 (22.0-26.0) meq/L ABG O2 Saturation (96.0-97.0) % ABG Base Excess (-2-2.0) Hieu Test A-a Gradient mmHg O2 Delivery Device FiO2 (21.00-100.00) % Sodium 146 H (136-145) mEq/L Potassium 3.2 L (3.5-5.1) mEq/L Chloride 96 L (98-107) mEq/L Carbon Dioxide 36 H (21-32) mEq/L Anion Gap 17.2 H (5-15) BUN 55 H (7-18) mg/dL Creatinine 2.0 H (0.55-1.02) mg/dL Est Cr Clr Drug Dosing 15.80 mL/min Estimated GFR (MDRD) 24 (>60) mL/min BUN/Creatinine Ratio 27.5 H (14-18) Glucose 138 H (70-99) mg/dL Calcium 9.3 (8.5-10.1) mg/dL NT-Pro-B Natriuret Pep 51091 H (0-450) pg/mL Med Orders - Current: Current Medications Acetaminophen (Acetaminophen 325 Mg Tab) 650 mg PO Q4H PRN PRN Reason: Pain (Mild 1-3)/fever Last Admin: 08/03/21 22:55 Dose: 650 mg Documented by: Apixaban (Apixaban 2.5 Mg Tab) 2.5 mg PO BID [facility] Last Admin: 08/04/21 08:09 Dose: 2.5 mg Documented by: Diclofenac Sodium (Diclofenac Sodium 1% Gel 100 Gm Tube) 0 gm TOP ASDIRECTED PRN PRN Reason: Pain Hydralazine HCl (Hydralazine 20 Mg/Ml Sdv) 10 mg IVPUSH Q4H PRN PRN Reason: Hypertension Furosemide 100 mg/ Sodium (Chloride) 100 mls @ 10 mls/hr IV CONTINUOUS [facility]; Protocol Last Titration: 08/04/21 08:50 Dose: 5 ml/hr, 5 mls/hr Documented by: Potassium Chloride 10 meq/ (Premix) 100 mls @ 100 mls/hr IV Q1H [facility] Stop: 08/04/21 12:44 Levalbuterol HCl (Levalbuterol Hcl 1.25 Mg/3 Ml Neb) 1.25 mg NEB Q4H [facility] Last Admin: 08/04/21 03:15 Dose: 1.25 mg Documented by: Melatonin (Melatonin 3 Mg Tab) 6 mg PO BEDTIME PRN PRN Reason: Sleep Last Admin: 08/03/21 22:56 Dose: 6 mg Documented by: Methylprednisolone Sodium Succinate (Methylprednisolone Sodium Succinate 40 Mg/1 Ml Sdv) 60 mg IVPUSH Q6H [facility] Last Admin: 08/04/21 05:16 Dose: 60 mg Documented by: Metoprolol Tartrate (Metoprolol Tartrate 50 Mg Tab) 50 mg PO Q12H [facility] Last Admin: 08/04/21 08:05 Dose: 50 mg Documented by: Pantoprazole Sodium (Pantoprazole 40 Mg Tab.Cr) 40 mg PO DAILY@0700 [facility] Last Admin: 08/04/21 08:08 Dose: 40 mg Documented by: Rosuvastatin Calcium (Rosuvastatin 10 Mg Tab) 10 mg PO QPM [facility] Last Admin: 08/03/21 17:04 Dose: 10 mg Documented by: Sodium Chloride (Sodium Chloride 0.9% 10 Ml Syringe) 10 ml FLUSH ASDIRECTED PRN PRN Reason: Keep Vein Open Last Admin: 07/29/21 13:30 Dose: 10 ml Documented by: Discontinued Medications Albuterol (Albuterol 0.083% 2.5 Mg/3 Ml Neb Soln) 2.5 mg NEB Q2H PRN PRN Reason: Shortness Of Breath/wheezing Last Admin: 08/03/21 07:39 Dose: 2.5 mg Documented by: Bisacodyl (Bisacodyl 10 Mg Supp) 10 mg RECTAL ONETIME ONE Stop: 08/01/21 19:36 Last Admin: 08/01/21 19:40 Dose: 10 mg Documented by: Diltiazem HCl (Diltiazem 50 Mg/10 Ml Sdv) 10 mg IVPUSH ONETIME ONE Stop: 07/31/21 11:34 Last Admin: 07/31/21 11:43 Dose: 10 mg Documented by: Diltiazem HCl (Diltiazem Ir 30 Mg Tab) 30 mg PO Q6HR [facility] Last Admin: 07/31/21 17:57 Dose: 30 mg Documented by: Diltiazem HCl (Diltiazem Ir 30 Mg Tab) 30 mg PO ONETIME ONE Stop: 07/31/21 19:11 Last Admin: 07/31/21 19:50 Dose: 30 mg Documented by: Diltiazem HCl (Diltiazem Ir 60 Mg Tab) 60 mg PO Q8H [facility] Last Admin: 08/01/21 02:13 Dose: 60 mg Documented by: Enoxaparin Sodium (Enoxaparin 30 Mg/0.3 Ml Syringe) 30 mg SUBCUT DAILY [facility] Last Admin: 07/31/21 08:13 Dose: 30 mg Documented by: Furosemide (Furosemide 40 Mg/4 Ml Vial) 40 mg IVPUSH NOW ONE Stop: 07/29/21 13:43 Last Admin: 07/29/21 14:45 Dose: 40 mg Documented by: Furosemide (Furosemide 40 Mg/4 Ml Vial) 40 mg IVPUSH ONETIME ONE Stop: 07/29/21 18:01 Last Admin: 07/29/21 18:09 Dose: 40 mg Documented by: Furosemide (Furosemide 40 Mg/4 Ml Vial) 40 mg IVPUSH BIDDIURETIC [facility] Last Admin: 07/30/21 06:21 Dose: 40 mg Documented by: Furosemide (Furosemide 40 Mg/4 Ml Vial) 40 mg IVPUSH NOW ONE Stop: 07/30/21 08:12 Last Admin: 07/30/21 11:19 Dose: Not Given Documented by: Furosemide (Furosemide 40 Mg/4 Ml Vial) 80 mg IVPUSH BIDDIURETIC [facility] Last Admin: 07/31/21 14:05 Dose: 80 mg Documented by: Furosemide (Furosemide 100 Mg/10 Ml Sdv) 80 mg IVPUSH ONETIME ONE Stop: 07/30/21 20:01 Last Admin: 07/30/21 20:21 Dose: 80 mg Documented by: Furosemide (Furosemide 40 Mg/4 Ml Vial) 60 mg IVPUSH NOW ONE Stop: 08/01/21 09:17 Last Admin: 08/01/21 10:18 Dose: 60 mg Documented by: Furosemide (Furosemide 40 Mg/4 Ml Vial) 80 mg IVPUSH NOW ONE Stop: 08/01/21 15:34 Last Admin: 08/01/21 16:09 Dose: 80 mg Documented by: Magnesium Sulfate 4 gm/ Premix 50 mls @ 12.5 mls/hr IV ONETIME ONE Stop: 07/30/21 13:23 Last Admin: 07/30/21 11:28 Dose: 12.5 mls/hr Documented by: Albumin Human 12.5 gm/ Premix 50 mls @ 50 mls/hr IV ONETIME ONE Stop: 08/01/21 10:29 Last Admin: 08/01/21 10:19 Dose: 50 mls/hr Documented by: Magnesium Sulfate 2 gm/ Premix 50 mls @ 25 mls/hr IV ONETIME ONE Stop: 08/02/21 10:01 Last Admin: 08/02/21 08:27 Dose: 25 mls/hr Documented by: Magnesium Sulfate 2 gm/ Premix 50 mls @ 25 mls/hr IV ONETIME ONE Stop: 08/02/21 12:37 Last Admin: 08/02/21 10:52 Dose: Not Given Documented by: Potassium Chloride 10 meq/ (Premix) 100 mls @ 100 mls/hr IV Q1H [facility] Stop: 08/02/21 22:14 Last Admin: 08/02/21 22:10 Dose: 100 mls/hr Documented by: Magnesium Hydroxide (Magnesium Hydroxide 400 Mg/5 Ml Susp 30 Ml Cup) 30 ml PO ONETIME ONE Stop: 08/01/21 13:32 Last Admin: 08/01/21 13:41 Dose: 30 ml Documented by: Metolazone (Metolazone 5 Mg Tab) 10 mg PO ONETIME ONE Stop: 08/01/21 14:27 Last Admin: 08/01/21 14:48 Dose: 10 mg Documented by: Metolazone (Metolazone 5 Mg Tab) 10 mg PO ONETIME ONE Stop: 08/02/21 13:01 Last Admin: 08/02/21 14:53 Dose: Not Given Documented by: Metoprolol Tartrate (Metoprolol Tartrate 5 Mg/5 Ml Sdv) 5 mg IVPUSH ONETIME ONE Stop: 07/31/21 09:25 Last Admin: 07/31/21 09:30 Dose: 5 mg Documented by: Metoprolol Tartrate (Metoprolol Tartrate 5 Mg/5 Ml Sdv) 5 mg IVPUSH ONETIME ONE Stop: 07/31/21 09:55 Last Admin: 07/31/21 11:35 Dose: Not Given Documented by: Metoprolol Tartrate (Metoprolol Tartrate 5 Mg/5 Ml Sdv) Confirm Administered D ose 5 mg .ROUTE .STK-MED ONE Stop: 07/31/21 09:57 Last Admin: 07/31/21 10:00 Dose: 5 mg Documented by: - Exam Quality Assessment: Supplemental Oxygen (Via nasal cannula), Urine Catheter Urinary Catheter Total Time: 3Days 21Hours General: Alert, Cooperative, No Acute Distress Neck: Supple, No JVD Lungs: Clear to Auscultation, Normal Respiratory Effort, Decreased Breath Sounds, Other (Not very much air movement however.) Cardiovascular: Regular Rate GI/Abdominal Exam: Normal Bowel Sounds, Soft, Non-Tender Extremities: Normal Inspection, Pedal Edema Skin: Warm, Dry - Patient Data Lab Results Last 24 hrs: Laboratory Results - last 24 hr 08/03/21 08/03/21 08/04/21 Range/Units 09:23 12:07 05:37 WBC 3.13 L (3.98-10.04) K/mm3 RBC 4.75 (3.98-5.22) M/mm3 Hgb 12.4 (11.2-15.7) gm/dl Hct 41.9 (34.1-44.9) % MCV 88.2 D (79.4-94.8) fl MCH 26.1 (25.6-32.2) pg MCHC 29.6 L (32.2-35.5) g/dl RDW Std Deviation 50.9 H (36.4-46.3) fL Plt Count 186 (182-369) K/mm3 MPV 10.9 (9.4-12.3) fl Neut % (Auto) 86.9 H (34.0-71.1) % Lymph % (Auto) 10.9 L (19.3-51.7) % [place] % (Auto) 1.9 L (4.7-12.5) % Eos % (Auto) 0 L (0.7-5.8) Baso % (Auto) 0.0 L (0.1-1.2) % Neut # (Auto) 2.72 (1.56-6.13) K/mm3 Lymph # (Auto) 0.34 L (1.18-3.74) K/mm3 [place] # (Auto) 0.06 L (0.24-0.36) K/mm3 Eos # (Auto) 0.00 L (0.04-0.36) K/mm3 Baso # (Auto) 0.00 L (0.01-0.08) K/mm3 Puncture Site Rt radial Rt radial ABG pH 7.35 7.39 (7.35-7.45) ABG pCO2 75.9 H* 69.9 H (35.0-45.0) mmHg ABG pO2 78.0 L 78.0 L (80.0-100.0) mmHg ABG HCO3 40.5 H 40.9 H (22.0-26.0) meq/L ABG O2 Saturation 95.5 L 95.9 L (96.0-97.0) % ABG Base Excess 12.2 H 13.1 H (-2-2.0) Hieu Test Positive A-a Gradient 112 119 mmHg O2 Delivery Device Bipap 16/7 Bipap 18/9 FiO2 40.00 40.00 (21.00-100.00) % Sodium (136-145) mEq/L Potassium (3.5-5.1) mEq/L Chloride (98-107) mEq/L Carbon Dioxide (21-32) mEq/L Anion Gap (5-15) BUN (7-18) mg/dL Creatinine (0.55-1.02) mg/dL Est Cr Clr Drug Dosing mL/min Estimated GFR (MDRD) (>60) mL/min BUN/Creatinine Ratio (14-18) Glucose (70-99) mg/dL Calcium (8.5-10.1) mg/dL NT-Pro-B Natriuret Pep (0-450) pg/mL 08/04/21 08/04/21 Range/Units 05:37 05:37 WBC (3.98-10.04) K/mm3 RBC (3.98-5.22) M/mm3 Hgb (11.2-15.7) gm/dl Hct (34.1-44.9) % MCV (79.4-94.8) fl MCH (25.6-32.2) pg MCHC (32.2-35.5) g/dl RDW Std Deviation (36.4-46.3) fL Plt Count (182-369) K/mm3 MPV (9.4-12.3) fl Neut % (Auto) (34.0-71.1) % Lymph % (Auto) (19.3-51.7) % [place] % (Auto) (4.7-12.5) % Eos % (Auto) (0.7-5.8) Baso % (Auto) (0.1-1.2) % Neut # (Auto) (1.56-6.13) K/mm3 Lymph # (Auto) (1.18-3.74) K/mm3 [place] # (Auto) (0.24-0.36) K/mm3 Eos # (Auto) (0.04-0.36) K/mm3 Baso # (Auto) (0.01-0.08) K/mm3 Puncture Site ABG pH (7.35-7.45) ABG pCO2 (35.0-45.0) mmHg ABG pO2 (80.0-100.0) mmHg ABG HCO3 (22.0-26.0) meq/L ABG O2 Saturation (96.0-97.0) % ABG Base Excess (-2-2.0) Hieu Test A-a Gradient mmHg O2 Delivery Device FiO2 (21.00-100.00) % Sodium 146 H (136-145) mEq/L Potassium 3.2 L (3.5-5.1) mEq/L Chloride 96 L (98-107) mEq/L Carbon Dioxide 36 H (21-32) mEq/L Anion Gap 17.2 H (5-15) BUN 55 H (7-18) mg/dL Creatinine 2.0 H (0.55-1.02) mg/dL Est Cr Clr Drug Dosing 15.80 mL/min Estimated GFR (MDRD) 24 (>60) mL/min BUN/Creatinine Ratio 27.5 H (14-18) Glucose 138 H (70-99) mg/dL Calcium 9.3 (8.5-10.1) mg/dL NT-Pro-B Natriuret Pep 32430 H (0-450) pg/mL Result Diagrams: 08/04/21 05:37 08/04/21 05:37 Sepsis Event Note - Evaluation Sepsis Screening Result: No Definite Risk - Focused Exam Vital Signs: Vital Signs Temp Pulse Pulse Resp BP BP Pulse Ox 08/04/21 08:05 64 181/50 H 08/04/21 08:00 97.0 F 69 26 H 184/58 H 92 L 08/04/21 06:00 08/04/21 04:00 96.9 F 60 19 153/57 H 95 08/04/21 03:15 08/04/21 00:46 08/04/21 00:00 96.8 F L 67 21 H 149/79 H 93 L Pulse Ox 08/04/21 08:05 08/04/21 08:00 08/04/21 06:00 91 L 08/04/21 04:00 08/04/21 03:15 95 08/04/21 00:46 92 L 08/04/21 00:00 - Problem List Review Problem List Initiated/Reviewed/Updated: Yes - My Orders Last 24 Hours: My Active Orders 08/03/21 10:15 methylPREDNISolone Sod Succ [Solu-MEDROL] 60 mg IVPUSH Q6H 08/03/21 12:00 levalbuterol HCL [Xopenex] 1.25 mg NEB Q4H 08/03/21 12:01 Renew/Continue Urinary Catheter [OM.PC] Routine 08/04/21 08:45 Potassium Chloride [KCl in Water 10 MEQ/100 ML] 10 meq Premix Bag 1 bag IV Q1H 08/04/21 08:59 Renew/Continue Urinary Catheter [OM.PC] Routine - Plan Plan:: 85-year-old female with history of hypertension, congestive heart failure, and renal insufficiency presents to the emergency department with worsening shortness of breath, lower extremity edema, and low oxygen saturation. 1. Hypercapnic and hypoxemic respiratory failure. Requiring BiPAP at current time. Only on minimal supplemental oxygen. Titrate as necessary. Xopenex every 4 hours. Last ABG yesterday showed normal pH. Likely her normal with high CO2 retention at baseline. Steroids started. Continue RT consult 2. Acute kidney injury. No baseline for comparison. Numbers have stayed status quo over the past 3 days. Continue to monitor chemistries intermittently. Replace electrolytes as necessar y. Will need potassium replacement today. Lasix infusion decreased to 5 mg an hour. 3. Potassium electrolyte imbalance. Requires replacement today. We will treat as necessary. Patient is on Lasix infusion which should prevent higher levels. Intermittent check of labs. 4. Atrial fibrillation with rapid ventricular response. Controlled with a baseline left bundle. See previous notes. Was initially requiring higher doses of karina agents. Continue current dose of metoprolol. Continue telemetry monitoring. Echocardiogram showing normal EF, acceptable right heart pressures. 5. Acute on chronic diastolic congestive heart failure. Continue RT treatments as noted above. Lasix infusion with decrease in dose rate today. Monitor labs intermittently. We will trend BNP. Maintenance imaging again later today. Echo completed. PT and OT to consult. Patient should be in chair while during daylight hours. CODE STATUS: DNR/DNI. DVT prophylaxis; systemic anticoagulation with apixaban.
[2021-08-04] MEDS ORDERED: Potassium Chloride 20 MEQ Tab.ER PO ONE (10:40)
[2021-08-04] MEDS: hydrALAZINE 20 MG/ML SDV IVPUSH PRN (12:46)
[2021-08-04] MEDS: Rosuvastatin 10 MG Tab PO SCH (18:18)
[2021-08-04] MEDS: Acetaminophen 325 MG Tab PO PRN (20:06)
[2021-08-04] MEDS: Melatonin 3 MG Tab PO PRN (21:43)
[2021-08-05] MEDS: Furosemide 100 MG in Sodium Chloride 0.9% 90 ML IV SCH (00:12)
[2021-08-05] MEDS: methylPREDNISolone Sodium Succinate 40 MG/1 ML SDV IVPUSH SCH ×4 (03:59→22:53)
--- NOTE | 2021-08-05 08:23 | PCM.PN ---
- General Info Date of Service: 08/05/21 Admission Dx/Problem (Free Text): Admission Diagnosis/Problem Admission Diagnosis/Problem CHF, Congestive heart failure Subjective Update: No acute events overnight. No new nursing concerns. Patient seen and examined at bedside. Awake and answering questions even more so than yesterday. Denies any shortness of breath, chest pain or chest pressure. No abdominal complaints. Poor p.o. intake due to overall global weakness since being hospitalized. Maintaining O2 saturations. No concerns for hypercapnia overnight. - Patient Data Vitals - Most Recent: Last Vital Signs Temp 96.5 F L 08/05/21 08:00 Pulse 74 08/05/21 08:00 Resp 26 H 08/05/21 08:00 BP 175/67 H 08/05/21 08:00 Pulse Ox 91 L 08/05/21 08:00 Weight - Most Recent: 136 lb 6.4 oz I&O - Last 24 Hours: Intake & Output 08/04/21 08/05/21 08/05/21 22:59 06:59 14:59 Intake Total 120 409 Output Total 570 1010 Balance -450 -601 Lab Results Last 24 Hours: Laboratory Results - last 24 hr 08/04/21 08/05/21 08/05/21 Range/Units 05:37 05:58 05:58 WBC 5.58 (3.98-10.04) K/mm3 RBC 4.48 (3.98-5.22) M/mm3 Hgb 11.7 (11.2-15.7) gm/dl Hct 39.6 (34.1-44.9) % MCV 88.4 (79.4-94.8) fl MCH 26.1 (25.6-32.2) pg MCHC 29.5 L (32.2-35.5) g/dl RDW Std Deviation 51.8 H (36.4-46.3) fL Plt Count 226 (182-369) K/mm3 MPV 10.5 (9.4-12.3) fl Neut % (Auto) 90.5 H (34.0-71.1) % Lymph % (Auto) 4.8 L (19.3-51.7) % [place] % (Auto) 4.7 (4.7-12.5) % Eos % (Auto) 0 L (0.7-5.8) Baso % (Auto) 0.0 L (0.1-1.2) % Neut # (Auto) 5.05 (1.56-6.13) K/mm3 Lymph # (Auto) 0.27 L (1.18-3.74) K/mm3 [place] # (Auto) 0.26 (0.24-0.36) K/mm3 Eos # (Auto) 0.00 L (0.04-0.36) K/mm3 Baso # (Auto) 0.00 L (0.01-0.08) K/mm3 Manual Slide Review Abnormal smear Sodium 146 H 144 (136-145) mEq/L Potassium 3.2 L 3.3 L (3.5-5.1) mEq/L Chloride 96 L 97 L (98-107) mEq/L Carbon Dioxide 36 H 45 H* (21-32) mEq/L Anion Gap 17.2 H 5.3 (5-15) BUN 55 H 68 H (7-18) mg/dL Creatinine 2.0 H 1.9 H (0.55-1.02) mg/dL Est Cr Clr Drug Dosing 15.80 16.63 mL/min Estimated GFR (MDRD) 24 25 (>60) mL/min BUN/Creatinine Ratio 27.5 H 35.8 H (14-18) Glucose 138 H 165 H (70-99) mg/dL Calcium 9.3 8.8 (8.5-10.1) mg/dL Med Orders - Current: Current Medications Acetaminophen (Acetaminophen 325 Mg Tab) 650 mg PO Q4H PRN PRN Reason: Pain (Mild 1-3)/fever Last Admin: 08/04/21 20:06 Dose: 650 mg Documented by: Apixaban (Apixaban 2.5 Mg Tab) 2.5 mg PO BID KAIA Last Admin: 08/04/21 20:07 Dose: 2.5 mg Documented by: Diclofenac Sodium (Diclofenac Sodium 1% Gel 100 Gm Tube) 0 gm TOP ASDIRECTED PRN PRN Reason: Pain Hydralazine HCl (Hydralazine 20 Mg/Ml Sdv) 10 mg IVPUSH Q4H PRN PRN Reason: Hypertension Last Admin: 08/04/21 12:46 Dose: 10 mg Documented by: Furosemide 100 mg/ Sodium (Chloride) 100 mls @ 10 mls/hr IV CONTINUOUS KAIA; Protocol Last Admin: 08/05/21 00:12 Dose: 5 ml/hr, 5 mls/hr Documented by: Levalbuterol HCl (Levalbuterol Hcl 1.25 Mg/3 Ml Neb) 1.25 mg NEB Q4H PRN PRN Reason: Wheezing Melatonin (Melatonin 3 Mg Tab) 6 mg PO BEDTIME PRN PRN Reason: Sleep Last Admin: 08/04/21 21:43 Dose: 6 mg Documented by: Methylprednisolone Sodium Succinate (Methylprednisolone Sodium Succinate 40 Mg/1 Ml Sdv) 60 mg IVPUSH Q6H [facility] Last Admin: 08/05/21 03:59 Dose: 60 mg Documented by: Metoprolol Tartrate (Metoprolol Tartrate 50 Mg Tab) 50 mg PO Q12H [facility] Last Admin: 08/04/21 20:07 Dose: 50 mg Documented by: Pantoprazole Sodium (Pantoprazole 40 Mg Tab.Cr) 40 mg PO DAILY@0700 [facility] Last Admin: 08/04/21 08:08 Dose: 40 mg Documented by: Potassium Chloride (Potassium Chloride 20 Meq Tab.Er) 40 meq PO DAILY [facility] Rosuvastatin Calcium (Rosuvastatin 10 Mg Tab) 10 mg PO QPM [facility] Last Admin: 08/04/21 18:18 Dose: 10 mg Documented by: Sodium Chloride (Sodium Chloride 0.9% 10 Ml Syringe) 10 ml FLUSH ASDIRECTED PRN PRN Reason: Keep Vein Open Last Admin: 07/29/21 13:30 Dose: 10 ml Documented by: Discontinued Medications Albuterol (Albuterol 0.083% 2.5 Mg/3 Ml Neb Soln) 2.5 mg NEB Q2H PRN PRN Reason: Shortness Of Breath/wheezing Last Admin: 08/03/21 07:39 Dose: 2.5 mg Documented by: Bisacodyl (Bisacodyl 10 Mg Supp) 10 mg RECTAL ONETIME ONE Stop: 08/01/21 19:36 Last Admin: 08/01/21 19:40 Dose: 10 mg Documented by: Diltiazem HCl (Diltiazem 50 Mg/10 Ml Sdv) 10 mg IVPUSH ONETIME ONE Stop: 07/31/21 11:34 Last Admin: 07/31/21 11:43 Dose: 10 mg Documented by: Diltiazem HCl (Diltiazem Ir 30 Mg Tab) 30 mg PO Q6HR [facility] Last Admin: 07/31/21 17:57 Dose: 30 mg Documented by: Diltiazem HCl (Diltiazem Ir 30 Mg Tab) 30 mg PO ONETIME ONE Stop: 07/31/21 19:11 Last Admin: 07/31/21 19:50 Dose: 30 mg Documented by: Diltiazem HCl (Diltiazem Ir 60 Mg Tab) 60 mg PO Q8H [facility] Last Admin: 08/01/21 02:13 Dose: 60 mg Documented by: Enoxaparin Sodium (Enoxaparin 30 Mg/0.3 Ml Syringe) 30 mg SUBCUT DAILY [facility] Last Admin: 07/31/21 08:13 Dose: 30 mg Documented by: Furosemide (Furosemide 40 Mg/4 Ml Vial) 40 mg IVPUSH NOW ONE Stop: 07/29/21 13:43 Last Admin: 07/29/21 14:45 Dose: 40 mg Documented by: Furosemide (Furosemide 40 Mg/4 Ml Vial) 40 mg IVPUSH ONETIME ONE Stop: 07/29/21 18:01 Last Admin: 07/29/21 18:09 Dose: 40 mg Documented by: Furosemide (Furosemide 40 Mg/4 Ml Vial) 40 mg IVPUSH BIDDIURETIC [facility] Last Admin: 07/30/21 06:21 Dose: 40 mg Documented by: Furosemide (Furosemide 40 Mg/4 Ml Vial) 40 mg IVPUSH NOW ONE Stop: 07/30/21 08:12 Last Admin: 07/30/21 11:19 Dose: Not Given Documented by: Furosemide (Furosemide 40 Mg/4 Ml Vial) 80 mg IVPUSH BIDDIURETIC [facility] Last Admin: 07/31/21 14:05 Dose: 80 mg Documented by: Furosemide (Furosemide 100 Mg/10 Ml Sdv) 80 mg IVPUSH ONETIME ONE Stop: 07/30/21 20:01 Last Admin: 07/30/21 20:21 Dose: 80 mg Documented by: Furosemide (Furosemide 40 Mg/4 Ml Vial) 60 mg IVPUSH NOW ONE Stop: 08/01/21 09:17 Last Admin: 08/01/21 10:18 Dose: 60 mg Documented by: Furosemide (Furosemide 40 Mg/4 Ml Vial) 80 mg IVPUSH NOW ONE Stop: 08/01/21 15:34 Last Admin: 08/01/21 16:09 Dose: 80 mg Documented by: Magnesium Sulfate 4 gm/ Premix 50 mls @ 12.5 mls/hr IV ONETIME ONE Stop: 07/30/21 13:23 Last Admin: 07/30/21 11:28 Dose: 12.5 mls/hr Documented by: Albumin Human 12.5 gm/ Premix 50 mls @ 50 mls/hr IV ONETIME ONE Stop: 08/01/21 10:29 Last Admin: 08/01/21 10:19 Dose: 50 mls/hr Documented by: Magnesium Sulfate 2 gm/ Premix 50 mls @ 25 mls/hr IV ONETIME ONE Stop: 08/02/21 10:01 Last Admin: 08/02/21 08:27 Dose: 25 mls/hr Documented by: Magnesium Sulfate 2 gm/ Premix 50 mls @ 25 mls/hr IV ONETIME ONE Stop: 08/02/21 12:37 Last Admin: 08/02/21 10:52 Dose: Not Given Documented by: Potassium Chloride 10 meq/ (Premix) 100 mls @ 100 mls/hr IV Q1H [facility] Stop: 08/02/21 22:14 Last Admin: 08/02/21 22:10 Dose: 100 mls/hr Documented by: Potassium Chloride 10 meq/ (Premix) 100 mls @ 100 mls/hr IV Q1H [facility] Stop: 08/04/21 12:44 Last Admin: 08/04/21 09:47 Dose: 100 mls/hr Documented by: Levalbuterol HCl (Levalbuterol Hcl 1.25 Mg/3 Ml Neb) 1.25 mg NEB Q4H [facility] Last Admin: 08/04/21 09:16 Dose: 1.25 mg Documented by: Magnesium Hydroxide (Magnesium Hydroxide 400 Mg/5 Ml Susp 30 Ml Cup) 30 ml PO ONETIME ONE Stop: 08/01/21 13:32 Last Admin: 08/01/21 13:41 Dose: 30 ml Documented by: Metolazone (Metolazone 5 Mg Tab) 10 mg PO ONETIME ONE Stop: 08/01/21 14:27 Last Admin: 08/01/21 14:48 Dose: 10 mg Documented by: Metolazone (Metolazone 5 Mg Tab) 10 mg PO ONETIME ONE Stop: 08/02/21 13:01 Last Admin: 08/02/21 14:53 Dose: Not Given Documented by: Metoprolol Tartrate (Metoprolol Tartrate 5 Mg/5 Ml Sdv) 5 mg IVPUSH ONETIME ONE Stop: 07/31/21 09:25 Last Admin: 07/31/21 09:30 Dose: 5 mg Documented by: Metoprolol Tartrate (Metoprolol Tartrate 5 Mg/5 Ml Sdv) 5 mg IVPUSH ONETIME ONE Stop: 07/31/21 09:55 Last Admin: 07/31/21 11:35 Dose: Not Given Documented by: Metoprolol Tartrate (Metoprolol Tartrate 5 Mg/5 Ml Sdv) Confirm Administered Dose 5 mg .ROUTE .STK-MED ONE Stop: 07/31/21 09:57 Last Admin: 07/31/21 10:00 Dose: 5 mg Documented by: Potassium Chloride (Potassium Chloride 20 Meq Tab.Er) 40 meq PO ONETIME ONE Stop: 08/04/21 10:41 Last Admin: 08/04/21 10:48 Dose: 40 meq Documented by: - Exam Quality Assessment: Supplemental Oxygen (3 L via nasal cannula), Urine Catheter Urinary Catheter Total Time: 4Days 17Hours General: Alert, Cooperative, No Acute Distress Neck: Supple Lungs: Decreased Breath Sounds, Crackles (At bases) Cardiovascular: Regular Rate GI/Abdominal Exam: Normal Bowel Sounds, Soft, Non-Tender Extremities: Normal Inspection, Pedal Edema (Trace within the feet now.) Skin: Warm, Dry - Patient Data Lab Results Last 24 hrs: Laboratory Results - last 24 hr 08/04/21 08/05/21 08/05/21 Range/Units 05:37 05:58 05:58 WBC 5.58 (3.98-10.04) K/mm3 RBC 4.48 (3.98-5.22) M/mm3 Hgb 11.7 (11.2-15.7) gm/dl Hct 39.6 (34.1-44.9) % MCV 88.4 (79.4-94.8) fl MCH 26.1 (25.6-32.2) pg MCHC 29.5 L (32.2-35.5) g/dl RDW Std Deviation 51.8 H (36.4-46.3) fL Plt Count 226 (182-369) K/mm3 MPV 10.5 (9.4-12.3) fl Neut % (Auto) 90.5 H (34.0-71.1) % Lymph % (Auto) 4.8 L (19.3-51.7) % [place] % (Auto) 4.7 (4.7-12.5) % Eos % (Auto) 0 L (0.7-5.8) Baso % (Auto) 0.0 L (0.1-1.2) % Neut # (Auto) 5.05 (1.56-6.13) K/mm3 Lymph # (Auto) 0.27 L (1.18-3.74) K/mm3 [place] # (Auto) 0.26 (0.24-0.36) K/mm3 Eos # (Auto) 0.00 L (0.04-0.36) K/mm3 Baso # (Auto) 0.00 L (0.01-0.08) K/mm3 Manual Slide Review Abnormal smear Sodium 146 H 144 (136-145) mEq/L Potassium 3.2 L 3.3 L (3.5-5.1) mEq/L Chloride 96 L 97 L (98-107) mEq/L Carbon Dioxide 36 H 45 H* (21-32) mEq/L Anion Gap 17.2 H 5.3 (5-15) BUN 55 H 68 H (7-18) mg/dL Creatinine 2.0 H 1.9 H (0.55-1.02) mg/dL Est Cr Clr Drug Dosing 15.80 16.63 mL/min Estimated GFR (MDRD) 24 25 (>60) mL/min BUN/Creatinine Ratio 27.5 H 35.8 H (14-18) Glucose 138 H 165 H (70-99) mg/dL Calcium 9.3 8.8 (8.5-10.1) mg/dL Result Diagrams: 08/05/21 05:58 08/05/21 05:58 Sepsis Event Note - Evaluation Sepsis Screening Result: No Definite Risk - Focused Exam Vital Signs: Vital Signs Temp Pulse Resp BP Pulse Ox Pulse Ox 08/05/21 08:00 96.5 F L 74 26 H 175/67 H 91 L 08/05/21 06:42 94 L 08/05/21 04:00 96.9 F 69 24 H 173/63 H 96 08/05/21 00:00 97.0 F 64 23 H 164/75 H 94 L - Problem List Review Problem List Initiated/Reviewed/Updated: Yes - My Orders Last 24 Hours: My Active Orders 08/04/21 08:59 Renew/Continue Urinary Catheter [OM.PC] Routine 08/04/21 13:29 levalbuterol HCL [Xopenex] 1.25 mg NEB Q4H PRN 08/05/21 09:00 Potassium Chloride [Klor-Con M20] 40 meq PO DAILY - Plan Plan:: 85-year-old female with history of hypertension, congestive heart failure, and renal insufficiency presents to the emergency department with worsening shortness of breath, lower extremity edema, and low oxygen saturation. 1. Hypercapnic and hypoxemic respiratory failure. Now only on 3 L supplemental oxygen. This is likely her baseline between 2 and 4 L in order to maintain between 88 and 94%. Xopenex as needed every 4 hours No concerns for hypercapnia over the past 36 hours. Steroids to continue for a long taper. Continue RT consult 2. Acute kidney injury. No baseline for comparison. Numbers have stayed status quo over the past 3 days. Continue to monitor chemistries intermittently. Replace electrolytes as necessary. Will need potassium replacement today. Lasix infusion will be discontinued and replaced with IV push formulation. 3. Potassium electrolyte imbalance. Requires replacement today. We will treat as necessary. Patient still receiving Lasix. Intermittent check of labs. 4. Atrial fibrillation with rapid ventricular response. Controlled with a baseline left bundle. See previous notes. Was initially requiring higher doses of karina agents. Continue current dose of metoprolol. Continue telemetry monitoring. Echocardiogram showing normal EF, acceptable right heart pressures. 5. Acute on chronic diastolic congestive heart failure. Continue RT treatments as noted above. Lasix transition to IV push. Monitor labs intermittently. We will trend BNP. Echo completed. Weight down to 136 pounds. Likely getting close to dry weight. PT and OT to consult. Patient should be in chair while during daylight hours. CODE STATUS: DNR/DNI. DVT prophylaxis; systemic anticoagulation with apixaban.
[2021-08-05] MEDS: Metoprolol Tartrate 50 MG Tab PO SCH ×2 (08:24→20:22)
[2021-08-05] MEDS: Apixaban 2.5 MG Tab PO SCH ×2 (08:25→20:22)
[2021-08-05] MEDS: Pantoprazole 40 MG Tab.CR PO SCH (08:25)
[2021-08-05] MEDS: Potassium Chloride 20 MEQ Tab.ER PO SCH (08:36)
[2021-08-05] MEDS: Furosemide 40 MG/4 ML VIAL IVPUSH SCH ×2 (09:21→20:22)
[2021-08-05] MEDS: hydrALAZINE 20 MG/ML SDV IVPUSH PRN (10:59)
[2021-08-05] MEDS ORDERED: Sodium Chloride 0.65% Nasal Spray 45 ML Bottle NAS PRN (14:43)
[2021-08-05] MEDS: Levalbuterol HCl 1.25 MG/3 ML Neb NEB PRN ×2 (14:48→20:27)
[2021-08-05] MEDS: Acetaminophen 325 MG Tab PO PRN (15:49)
[2021-08-05] MEDS: Rosuvastatin 10 MG Tab PO SCH (17:34)
[2021-08-06] MEDS: methylPREDNISolone Sodium Succinate 40 MG/1 ML SDV IVPUSH SCH ×4 (04:36→22:11)
[2021-08-06] MEDS: Pantoprazole 40 MG Tab.CR PO SCH (06:43)
[2021-08-06] MEDS: Furosemide 40 MG/4 ML VIAL IVPUSH SCH (08:00)
[2021-08-06] MEDS: Apixaban 2.5 MG Tab PO SCH ×2 (08:00→20:17)
[2021-08-06] MEDS ORDERED: Sodium Chloride 0.65% Nasal Spray 45 ML Bottle NAS PRN (08:00)
[2021-08-06] MEDS: Metoprolol Tartrate 50 MG Tab PO SCH ×2 (08:00→20:17)
[2021-08-06] MEDS: Potassium Chloride 20 MEQ Tab.ER PO SCH (08:00)
--- NOTE | 2021-08-06 11:01 | PCM.PN ---
- General Info Date of Service: 08/06/21 Admission Dx/Problem (Free Text): Admission Diagnosis/Problem Admission Diagnosis/Problem CHF, Congestive heart failure Subjective Update: No acute events overnight. No new nursing concerns. Oxygenating well between 88 and 94% on anywhere between 2 and 4 L of supplemental oxygen. No specific patient complaints. Dry weight of 132.9 pounds. - Patient Data Vitals - Most Recent: Last Vital Signs Temp 96.9 F 08/06/21 10:00 Pulse 59 L 08/06/21 10:00 Resp 23 H 08/06/21 10:00 BP 175/54 H 08/06/21 08:00 Pulse Ox 99 08/06/21 10:00 Weight - Most Recent: 132 lb 9.6 oz I&O - Last 24 Hours: Intake & Output 08/05/21 08/06/21 08/06/21 22:59 06:59 14:59 Intake Total 705 300 Output Total 200 560 Balance 505 -260 Lab Results Last 24 Hours: Laboratory Results - last 24 hr 08/06/21 08/06/21 Range/Units 06:40 06:40 WBC 4.62 (3.98-10.04) K/mm3 RBC 4.67 (3.98-5.22) M/mm3 Hgb 12.4 (11.2-15.7) gm/dl Hct 41.7 (34.1-44.9) % MCV 89.3 (79.4-94.8) fl MCH 26.6 (25.6-32.2) pg MCHC 29.7 L (32.2-35.5) g/dl RDW Std Deviation 52.8 H (36.4-46.3) fL Plt Count 239 (182-369) K/mm3 MPV 10.5 (9.4-12.3) fl Neut % (Auto) 88.8 H (34.0-71.1) % Lymph % (Auto) 6.3 L (19.3-51.7) % [place] % (Auto) 4.5 L (4.7-12.5) % Eos % (Auto) 0 L (0.7-5.8) Baso % (Auto) 0.2 (0.1-1.2) % Neut # (Auto) 4.10 (1.56-6.13) K/mm3 Lymph # (Auto) 0.29 L (1.18-3.74) K/mm3 [place] # (Auto) 0.21 L (0.24-0.36) K/mm3 Eos # (Auto) 0.00 L (0.04-0.36) K/mm3 Baso # (Auto) 0.01 (0.01-0.08) K/mm3 Sodium 143 (136-145) mEq/L Potassium 3.4 L (3.5-5.1) mEq/L Chloride 92 L (98-107) mEq/L Carbon Dioxide 49 H* (21-32) mEq/L Anion Gap 5.4 (5-15) BUN 87 H (7-18) mg/dL Creatinine 2.0 H (0.55-1.02) mg/dL Est Cr Clr Drug Dosing 15.80 mL/min Estimated GFR (MDRD) 24 (>60) mL/min BUN/Creatinine Ratio 43.5 H (14-18) Glucose 155 H (70-99) mg/dL Calcium 8.9 (8.5-10.1) mg/dL Med Orders - Current: Current Medications Acetaminophen (Acetaminophen 325 Mg Tab) 650 mg PO Q4H PRN PRN Reason: Pain (Mild 1-3)/fever Last Admin: 08/05/21 15:49 Dose: 650 mg Documented by: Apixaban (Apixaban 2.5 Mg Tab) 2.5 mg PO BID KAIA Last Admin: 08/06/21 08:00 Dose: 2.5 mg Documented by: Diclofenac Sodium (Diclofenac Sodium 1% Gel 100 Gm Tube) 0 gm TOP ASDIRECTED PRN PRN Reason: Pain Furosemide (Furosemide 40 Mg Tab) 40 mg PO DAILY [facility] Hydralazine HCl (Hydralazine 20 Mg/Ml Sdv) 10 mg IVPUSH Q4H PRN PRN Reason: Hypertension Last Admin: 08/05/21 10:59 Dose: 10 mg Documented by: Levalbuterol HCl (Levalbuterol Hcl 1.25 Mg/3 Ml Neb) 1.25 mg NEB Q4H PRN PRN Reason: Wheezing Last Admin: 08/05/21 20:27 Dose: 1.25 mg Documented by: Melatonin (Melatonin 3 Mg Tab) 6 mg PO BEDTIME PRN PRN Reason: Sleep Last Admin: 08/04/21 21:43 Dose: 6 mg Documented by: Methylprednisolone Sodium Succinate (Methylprednisolone Sodium Succinate 40 Mg/1 Ml Sdv) 60 mg IVPUSH Q6H [facility] Last Admin: 08/06/21 04:36 Dose: 60 mg Documented by: Metoprolol Tartrate (Metoprolol Tartrate 50 Mg Tab) 50 mg PO Q12H [facility] Last Admin: 08/06/21 08:00 Dose: 50 mg Documented by: Pantoprazole Sodium (Pantoprazole 40 Mg Tab.Cr) 40 mg PO DAILY@0700 [facility] Last Admin: 08/06/21 06:43 Dose: 40 mg Documented by: Potassium Chloride (Potassium Chloride 20 Meq Tab.Er) 40 meq PO DAILY [facility] Last Admin: 08/06/21 08:00 Dose: 40 meq Documented by: Rosuvastatin Calcium (Rosuvastatin 10 Mg Tab) 10 mg PO QPM [facility] Last Admin: 08/05/21 17:34 Dose: 10 mg Documented by: Sodium Chloride (Sodium Chloride 0.9% 10 Ml Syringe) 10 ml FLUSH ASDIRECTED PRN PRN Reason: Keep Vein Open Last Admin: 07/29/21 13:30 Dose: 10 ml Documented by: Sodium Chloride (Sodium Chloride 0.65% Nasal [place] 45 Ml Bottle) 0 ml OLIVIA Q2H PRN PRN Reason: nasal dryness Discontinued Medications Albuterol (Albuterol 0.083% 2.5 Mg/3 Ml Neb Soln) 2.5 mg NEB Q2H PRN PRN Reason: Shortness Of Breath/wheezing Last Admin: 08/03/21 07:39 Dose: 2.5 mg Documented by: Bisacodyl (Bisacodyl 10 Mg Supp) 10 mg RECTAL ONETIME ONE Stop: 08/01/21 19:36 Last Admin: 08/01/21 19:40 Dose: 10 mg Documented by: Diltiazem HCl (Diltiazem 50 Mg/10 Ml Sdv) 10 mg IVPUSH ONETIME ONE Stop: 07/31/21 11:34 Last Admin: 07/31/21 11:43 Dose: 10 mg Documented by: Diltiazem HCl (Diltiazem Ir 30 Mg Tab) 30 mg PO Q6HR [facility] Last Admin: 07/31/21 17:57 Dose: 30 mg Documented by: Diltiazem HCl (Diltiazem Ir 30 Mg Tab) 30 mg PO ONETIME ONE Stop: 07/31/21 19:11 Last Admin: 07/31/21 19:50 Dose: 30 mg Documented by: Diltiazem HCl (Diltiazem Ir 60 Mg Tab) 60 mg PO Q8H [facility] Last Admin: 08/01/21 02:13 Dose: 60 mg Documented by: Enoxaparin Sodium (Enoxaparin 30 Mg/0.3 Ml Syringe) 30 mg SUBCUT DAILY [facility] Last Admin: 07/31/21 08:13 Dose: 30 mg Documented by: Furosemide (Furosemide 40 Mg/4 Ml Vial) 40 mg IVPUSH NOW ONE Stop: 07/29/21 13:43 Last Admin: 07/29/21 14:45 Dose: 40 mg Documented by: Furosemide (Furosemide 40 Mg/4 Ml Vial) 40 mg IVPUSH ONETIME ONE Stop: 07/29/21 18:01 Last Admin: 07/29/21 18:09 Dose: 40 mg Documented by: Furosemide (Furosemide 40 Mg/4 Ml Vial) 40 mg IVPUSH BIDDIURETIC [facility] Last Admin: 07/30/21 06:21 Dose: 40 mg Documented by: Furosemide (Furosemide 40 Mg/4 Ml Vial) 40 mg IVPUSH NOW ONE Stop: 07/30/21 08:12 Last Admin: 07/30/21 11:19 Dose: Not Given Documented by: Furosemide (Furosemide 40 Mg/4 Ml Vial) 80 mg IVPUSH BIDDIURETIC [facility] Last Admin: 07/31/21 14:05 Dose: 80 mg Documented by: Furosemide (Furosemide 100 Mg/10 Ml Sdv) 80 mg IVPUSH ONETIME ONE Stop: 07/30/21 20:01 Last Admin: 07/30/21 20:21 Dose: 80 mg Documented by: Furosemide (Furosemide 40 Mg/4 Ml Vial) 60 mg IVPUSH NOW ONE Stop: 08/01/21 09:17 Last Admin: 08/01/21 10:18 Dose: 60 mg Documented by: Furosemide (Furosemide 40 Mg/4 Ml Vial) 80 mg IVPUSH NOW ONE Stop: 08/01/21 15:34 Last Admin: 08/01/21 16:09 Dose: 80 mg Documented by: Furosemide (Furosemide 40 Mg/4 Ml Vial) 40 mg IVPUSH BID [facility] Last Admin: 08/06/21 08:00 Dose: 40 mg Documented by: Magnesium Sulfate 4 gm/ Premix 50 mls @ 12.5 mls/hr IV ONETIME ONE Stop: 07/30/21 13:23 Last Admin: 07/30/21 11:28 Dose: 12.5 mls/hr Documented by: Furosemide 100 mg/ Sodium (Chloride) 100 mls @ 10 mls/hr IV CONTINUOUS KAIA; Protocol Last Admin: 08/05/21 00:12 Dose: 5 ml/hr, 5 mls/hr Documented by: Albumin Human 12.5 gm/ Premix 50 mls @ 50 mls/hr IV ONETIME ONE Stop: 08/01/21 10:29 Last Admin: 08/01/21 10:19 Dose: 50 mls/hr Documented by: Magnesium Sulfate 2 gm/ Premix 50 mls @ 25 mls/hr IV ONETIME ONE Stop: 08/02/21 10:01 Last Admin: 08/02/21 08:27 Dose: 25 mls/hr Documented by: Magnesium Sulfate 2 gm/ Premix 50 mls @ 25 mls/hr IV ONETIME ONE Stop: 08/02/21 12:37 Last Admin: 08/02/21 10:52 Dose: Not Given Documented by: Potassium Chloride 10 meq/ (Premix) 100 mls @ 100 mls/hr IV Q1H KAIA Stop: 08/02/21 22:14 Last Admin: 08/02/21 22:10 Dose: 100 mls/hr Documented by: Potassium Chloride 10 meq/ (Premix) 100 mls @ 100 mls/hr IV Q1H [facility]IA Stop: 08/04/21 12:44 Last Admin: 08/04/21 09:47 Dose: 100 mls/hr Documented by: Levalbuterol HCl (Levalbuterol Hcl 1.25 Mg/3 Ml Neb) 1.25 mg NEB Q4H [facility]AIA Last Admin: 08/04/21 09:16 Dose: 1.25 mg Documented by: Magnesium Hydroxide (Magnesium Hydroxide 400 Mg/5 Ml Susp 30 Ml Cup) 30 ml PO ONETIME ONE Stop: 08/01/21 13:32 Last Admin: 08/01/21 13:41 Dose: 30 ml Documented by: Metolazone (Metolazone 5 Mg Tab) 10 mg PO ONETIME ONE Stop: 08/01/21 14:27 Last Admin: 08/01/21 14:48 Dose: 10 mg Documented by: Metolazone (Metolazone 5 Mg Tab) 10 mg PO ONETIME ONE Stop: 08/02/21 13:01 Last Admin: 08/02/21 14:53 Dose: Not Given Documented by: Metoprolol Tartrate (Metoprolol Tartrate 5 Mg/5 Ml Sdv) 5 mg IVPUSH ONETIME ONE Stop: 07/31/21 09:25 Last Admin: 07/31/21 09:30 Dose: 5 mg Documented by: Metoprolol Tartrate (Metoprolol Tartrate 5 Mg/5 Ml Sdv) 5 mg IVPUSH ONETIME ONE Stop: 07/31/21 09:55 Last Admin: 07/31/21 11:35 Dose: Not Given Documented by: Metoprolol Tartrate (Metoprolol Tartrate 5 Mg/5 Ml Sdv) Confirm Administered Dose 5 mg .ROUTE .STK-MED ONE Stop: 07/31/21 09:57 Last Admin: 07/31/21 10:00 Dose: 5 mg Documented by: Potassium Chloride (Potassium Chloride 20 Meq Tab.Er) 40 meq PO ONETIME ONE Stop: 08/04/21 10:41 Last Admin: 08/04/21 10:48 Dose: 40 meq Documented by: Sodium Chloride (Sodium Chloride 0.65% Nasal [place] 45 Ml Bottle) 2 ml OLIVIA Q2H PRN PRN Reason: nasal dryness Last Admin: 08/05/21 15:35 Dose: 1 spray Documented by: - Exam Quality Assessment: Supplemental Oxygen Urinary Catheter Total Time: 5Days 23Hours General: Alert, No Acute Distress Neck: Supple Lungs: Normal Respiratory Effort, Decreased Breath Sounds Cardiovascular: No: Regular Rhythm GI/Abdominal Exam: Normal Bowel Sounds, Soft, Non-Tender Extremities: Normal Inspection, No Pedal Edema Skin: Warm, Dry - Patient Data Lab Results Last 24 hrs: Laboratory Results - last 24 hr 08/06/21 08/06/21 Range/Units 06:40 06:40 WBC 4.62 (3.98-10.04) K/mm3 RBC 4.67 (3.98-5.22) M/mm3 Hgb 12.4 (11.2-15.7) gm/dl Hct 41.7 (34.1-44.9) % MCV 89.3 (79.4-94.8) fl MCH 26.6 (25.6-32.2) pg MCHC 29.7 L (32.2-35.5) g/dl RDW Std Deviation 52.8 H (36.4-46.3) fL Plt Count 239 (182-369) K/mm3 MPV 10.5 (9.4-12.3) fl Neut % (Auto) 88.8 H (34.0-71.1) % Lymph % (Auto) 6.3 L (19.3-51.7) % [place] % (Auto) 4.5 L (4.7-12.5) % Eos % (Auto) 0 L (0.7-5.8) Baso % (Auto) 0.2 (0.1-1.2) % Neut # (Auto) 4.10 (1.56-6.13) K/mm3 Lymph # (Auto) 0.29 L (1.18-3.74) K/mm3 [place] # (Auto) 0.21 L (0.24-0.36) K/mm3 Eos # (Auto) 0.00 L (0.04-0.36) K/mm3 Baso # (Auto) 0.01 (0.01-0.08) K/mm3 Sodium 143 (136-145) mEq/L Potassium 3.4 L (3.5-5.1) mEq/L Chloride 92 L (98-107) mEq/L Carbon Dioxide 49 H* (21-32) mEq/L Anion Gap 5.4 (5-15) BUN 87 H (7-18) mg/dL Creatinine 2.0 H (0.55-1.02) mg/dL Est Cr Clr Drug Dosing 15.80 mL/min Estimated GFR (MDRD) 24 (>60) mL/min BUN/Creatinine Ratio 43.5 H (14-18) Glucose 155 H (70-99) mg/dL Calcium 8.9 (8.5-10.1) mg/dL Result Diagrams: 08/06/21 06:40 08/06/21 06:40 Sepsis Event Note - Evaluation Sepsis Screening Result: No Definite Risk - Focused Exam Vital Signs: Vital Signs Temp Pulse Pulse Resp BP BP Pulse Ox 08/06/21 10:00 96.9 F 59 L 23 H 99 08/06/21 08:00 72 175/54 H 08/06/21 04:00 96.9 F 67 14 166/47 H 90 L 08/05/21 23:24 96.9 F 59 L 18 146/48 H 92 L - Problem List Review Problem List Initiated/Reviewed/Updated: Yes - My Orders Last 24 Hours: My Active Orders 08/06/21 08:00 Sodium Chloride 0.65% [[place] Nasal [place]] 0 ml OLIVIA Q2H PRN 08/07/21 09:00 Furosemide [Lasix] 40 mg PO DAILY - Plan Plan:: 85-year-old female with history of hypertension, congestive heart failure, and renal insufficiency presents to the emergency department with worsening shortness of breath, lower extremity edema, and low oxygen saturation. 1. Hypercapnic and hypoxemic respiratory failure. Requiring a chronic 1 to 4 L of oxygen via nasal cannula. This is likely her baseline between 2 and 4 L in order to maintain between 88 and 94%. Xopenex as needed every 4 hours No concerns for hypercapnia. Steroids to continue for a long taper. Continue RT consult 2. Acute kidney injury. No baseline for comparison. Numbers have stayed status quo over the past 4 days. Continue to monitor chemistries intermittently. Replace electrolytes as necessary. Will need potassium replacement today. IV Lasix discontinued entirely and replaced with oral formulation. Recheck labs in the morning 3. Potassium electrolyte imbalance. Requires replacement today. We will treat as necessary. Patient still receiving Lasix. Intermittent check of labs. 4. Atrial fibrillation with rapid ventricular response. Controlled with a baseline left bundle. See previous notes. Was initially requiring higher doses of karina agents. Continue current dose of metoprolol. Continue telemetry monitoring. Echocardiogram showing normal EF, acceptable right heart pressures. 5. Acute on chronic diastolic congestive heart failure. Continue RT treatments as noted above. Lasix transition to p.o. form Monitor labs intermittently. We will trend BNP. Echo completed. Weight down to 132 pounds. This is highly likely her dry weight. PT and OT to consult. Patient should be in chair while during daylight hours. CODE STATUS: DNR/DNI. DVT prophylaxis; systemic anticoagulation with apixaban.
[2021-08-06] MEDS: hydrALAZINE 20 MG/ML SDV IVPUSH PRN (16:23)
[2021-08-06] MEDS: Rosuvastatin 10 MG Tab PO SCH (17:15)
[2021-08-06] MEDS: Melatonin 3 MG Tab PO PRN (22:11)
[2021-08-06] MEDS: Acetaminophen 325 MG Tab PO PRN (22:11)
[2021-08-06] MEDS: Levalbuterol HCl 1.25 MG/3 ML Neb NEB PRN (22:35)
[2021-08-07] MEDS: methylPREDNISolone Sodium Succinate 40 MG/1 ML SDV IVPUSH SCH ×2 (04:38→09:41)
[2021-08-07] MEDS: Levalbuterol HCl 1.25 MG/3 ML Neb NEB PRN (04:55)
[2021-08-07] MEDS: Pantoprazole 40 MG Tab.CR PO SCH (05:59)
[2021-08-07] MEDS: Potassium Chloride 20 MEQ Tab.ER PO SCH (08:15)
[2021-08-07] MEDS: Metoprolol Tartrate 50 MG Tab PO SCH (08:17)
[2021-08-07] MEDS: Apixaban 2.5 MG Tab PO SCH (08:18)
[2021-08-07] MEDS ORDERED: Furosemide 40 MG Tab PO SCH (09:00)
--- NOTE | 2021-08-07 09:25 | PCM.DCSUM1 ---
Discharge Summary - Hospital Course Free Text/Narrative:: 85-year-old female with history of hypertension, congestive heart failure, and renal insufficiency presents to the emergency department with worsening shortness of breath, lower extremity edema, and low oxygen saturation. 1. Hypercapnic and hypoxemic respiratory failure. Likely multifactorial in the setting of acute exacerbation of obstructive lung disease and acute exacerbation of diastolic congestive heart failure. Patient was aggressively diuresed over the course of a week with a Lasix infusion. Patient's weight upon presentation to the emergency department was above 160 pounds. She was diuresed down to a dry weight of 132 pounds with notable contraction alkalosis noted on chemistries. The patient was eventually transitioned down to low-dose Lasix 20 mg daily alongside her combination valsartan/hydrochlorothiazide. Originally, her ARB/HCTZ was held due to the thoughts of acute kidney injury. This has been reinstated at time of discharge. The patient was requiring significant oxygen support initially, with an eventual significant exacerbation of hypercarbia and hypoxemia requiring BiPAP emergently on Thursday 08/02. This was accompanied by acute encephalopathy which was reversed once her hypercarbia was reversed. She likely retains a CO2 into the 60s. This is according to ABGs. Requiring a chronic 1 to 4 L of oxygen via nasal cannula. This is likely her baseline between 2 and 4 L in order to maintain between 88 and 94%. She received duo nebs and Xopenex as needed every 4 hours, throughout her course. At time of discharge there is no concerns for hypercapnia and encephalopathy due to this. Patient's mental status has been clear for the past 3 days. Steroids to continue for a long taper as indicated by discharge medication list. Should avoid any sleep aids with the exception of melatonin for fear of hypercarbia and respiratory failure that could lead to cardiac arrest. Patient is a DNR/DNI. 2. Acute kidney injury. No baseline for comparison. Numbers have stayed status quo over the past 4 days. Continue to monitor chemistries intermittently. We replaced electrolytes as necessary. IV Lasix discontinued entirely and replaced with oral formulation. Labs at time of discharge continue to indicate contraction alkalosis. Loop diuretics have been significantly decreased down to 20 mg daily with repeat chemistries for 08/10/2021 with refer the else to PCP for further titration or discontinuation if needed. 3. Potassium electrolyte imbalance. Required potassium replacement on most days due to loop diuretic use. Patient will go home on daily replacement. 4. Atrial fibrillation with rapid ventricular response. Patient went into atrial fibrillation with rapid ventricular response during her episodes of acute respiratory failure. Patient was put on systemic anticoagulation with low-dose Eliquis. The patient was requiring beta-blockade for good rate control. She remains on metoprolol. Heart rates have been in the 60s with baseline atrial fibrillation and known left bundle branch block. 5. Acute on chronic diastolic congestive heart failure. Treatment summary as noted above. Echo completed showing ejection fraction of 55 to 60%. Weight down to 132 pounds. This is highly likely her dry weight. PT and OT to consult. Patient should be in chair while during daylight hours. CODE STATUS: DNR/DNI. DVT prophylaxis; systemic anticoagulation with apixaban. HPI Initial Comments: 85-year-old female with history of congestive heart failure, hypertension, hyperlipidemia, iron deficiency anemia, and chronic kidney disease who lives in assisted living at [facility] presented to the emergency department after being seen at her clinic in [place] with oxygen saturations in the upper 70s and low 80s. Apparently she slept longer this morning than normal and nursing staff was concerned and checked her vitals. Her vitals there were consistent with the above findings and they encouraged her to be seen at the local clinic. Patient denies any shortness of breath, PND, orthopnea, or chest pain. She states she has had some left ankle pain for the last few days, but does not report significant changes in her swelling. It appears though, that she has had some increased swelling over the last week and there is report of increased shortness of breath. Patient was mildly tachypneic on exam. Patient was brought to the emergency room and chest x-ray showed findings suspicious for CHF. Chemistries that were pertinent showed a sodium of 142, potassium elevated at 5.9, BUN 32, elevated creatinine of 2.0, low GFR 24, negative troponin less than 0.017, proBNP of 28,193, and SARS-CoV-2 negative. Patient was given 40 mg of Lasix and started on O2. It was felt patient was in need of hospitalization. Right Knee Pain Score (Numeric/FACES): 6 - Related Data Allergies/Adverse Reactions: Allergies Allergy/AdvReac Type Severity Reaction Status Date / Time No Known Allergies Allergy Verified 07/29/21 17:08 Home Medications: Home Meds Calcium Carbonate 600 mg PO DAILY 07/29/21 [History] Cholecalciferol (Vitamin D3) [Vitamin D3] 5,000 unit PO DAILY 07/29/21 [History] Diclofenac Sodium [Voltaren 1% Gel] 1 applic TOP ASDIRECTED PRN 07/29/21 [History] Metoprolol Tartrate 100 mg PO BID 07/29/21 [History] Mirabegron [Myrbetriq] 25 mg PO DAILY 07/29/21 [History] Omeprazole 40 mg PO QAM 07/29/21 [History] Potassium Chloride 10 meq PO BID 07/29/21 [History] Rosuvastatin [Crestor] 10 mg PO QPM 07/29/21 [History] Valsartan/Hydrochlorothiazide [Diovan Hct 160-25 mg Tablet] 1 each PO DAILY 07/29/21 [History] Past Medical History Cardiovascular History: Reports: High Cholesterol, Hypertension Gastrointestinal History: Reports: GERD Genitourinary History: Reports: Chronic Renal Insuffiency, Urinary Incontinence, Other (See Below) Other Genitourinary History: bladder surgery Musculoskeletal History: Reports: Gout Hematologic History: Reports: Anemia Other Hematologic History: pt stopped iron pill due to freq of diarrhea Oncologic (Cancer) History: Reports: Breast Other Oncologic History: 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 Exam - Exam Exam: See Below - Vital Signs Vital Signs: Last Vital Signs Temp 96.9 F 07/29/21 12:54 Pulse 53 L 07/29/21 12:54 Resp 26 H 07/29/21 12:54 BP 211/82 H 07/29/21 12:54 Pulse Ox 84 L 07/29/21 12:54 Weight: 151 lb 6.4 oz - Exam Quality Assessment: Supplemental Oxygen General: Alert, Oriented, 4 HEENT: Conjunctiva Clear, Hearing Intact, Mucosa Moist & [place], Normal Nasal Septum Neck: Supple, Trachea Midline, 2 Lungs: Crackles (Throughout both lung thomas). No: Normal Respiratory Effort ( Increased respiratory rate) Cardiovascular: Regular Rhythm, Bradycardia (Heart rate in the 50s) GI/Abdominal Exam: Normal Bowel Sounds, Soft, Non-Tender, No Organomegaly, No Distention, No Abnormal Bruit, No Mass Extremities: Non-Tender, Normal Capillary Refill, Pedal Edema (2-3+ pitting edema), Other (Left ankle is tender on the medial aspect. Pain with active and passive flexion and extension.) Peripheral Pulses: 1+: Posterior Tibial (L), Posterior Tibial (R), Dorsalis Pedis (L), Dorsalis Pedis (R) Skin: Warm, Dry, Intact, Rash (Mildly erythematous lower extremities without warmth) Neuro Extensive - Mental Status: Alert, Oriented x3, Normal Mood/Affect, Normal Cognition, Memory Intact Neuro Extensive - Motor, Sensory, Reflexes: CN II-XII Intact Psychiatric: Alert, Normal Affect, Normal Mood - Discharge Data Discharge Date: 08/07/21 Discharge Disposition: DC/Tfer to SNF 03 Condition: Good - Referral to Home Health Primary Care Physician: PCP None - Patient Summary/Data Consults: Consultations 07/29/21 16:49 PT Evaluation and Treatment [CONS] Routine - Patient Instructions Diet: Low Sodium Fluid Restriction: 2000 mL Other/Special Instructions: Activity and diet are as tolerated. Continue taking medications as listed at time of discharge. Repeat basic metabolic panel August 10 with results to PCP regarding electrolytes and renal function. Dry weight of 132 to 133 pounds must be maintained. If greater than a 2 pound gain in 24 hours take an extra dose of Lasix and call PCP for instruct ions in order to avoid CHF exacerbation. Sodium and fluid restriction as noted. Follow-up with PCP within 1 to 2 weeks time. Patient should be wearing oxygen 2 to 4 L at all times. Patient should not receive any sleep aids other than melatonin in order to prevent hypercarbia and respiratory failure. If you experience any signs or symptoms of 1 to this admission please do not hesitate to call your primary care physician or present to an emergency department for an immediate evaluation. - Discharge Plan *PRESCRIPTION DRUG MONITORING PROGRAM REVIEWED*: Not Applicable *COPY OF PRESCRIPTION DRUG MONITORING REPORT IN PATIENT NIKO: Not Applicable Prescriptions/Med Rec: Apixaban [Eliquis] 2.5 mg PO BID #60 tablet Furosemide [Lasix] 20 mg PO DAILY #30 tab predniSONE [Prednisone] 10 mg PO QAM #45 tablet Home Medications: Home Meds Calcium Carbonate 600 mg PO DAILY 07/29/21 [History] Cholecalciferol (Vitamin D3) [Vitamin D3] 5,000 unit PO DAILY 07/29/21 [History] Diclofenac Sodium [Voltaren 1% Gel] 1 applic TOP Q4HR PRN 07/29/21 [History] Metoprolol Tartrate 100 mg PO BID 07/29/21 [History] Mirabegron [Myrbetriq] 25 mg PO DAILY 07/29/21 [History] Non-Formulary Medication [NF Drug] 1 tab PO DAILY 07/29/21 [History] Omeprazole 40 mg PO QAM 07/29/21 [History] Potassium Chloride 10 meq PO BID 07/29/21 [History] Rosuvastatin [Crestor] 10 mg PO QPM 07/29/21 [History] Valsartan/Hydrochlorothiazide [Diovan Hct 160-25 mg Tablet] 1 each PO DAILY 07/29/21 [History] Acetaminophen [Tylenol] 650 mg PO Q4H PRN tablet 08/07/21 [Rx] Apixaban [Eliquis] 2.5 mg PO BID #60 tablet 08/07/21 [Rx] Furosemide [Lasix] 20 mg PO DAILY #30 tab 08/07/21 [Rx] Metoprolol Tartrate [Lopressor] 50 mg PO Q12H tablet 08/07/21 [Rx] predniSONE [Prednisone] 10 mg PO QAM #45 tablet 08/07/21 [Rx] Patient Handouts: Heart Failure, Self-Care, [id number], Living With Heart Failure, Apixaban oral tablets, Heart Failure Eating Plan Forms: ED Department Discharge - Discharge Summary/Plan Comment DC Time >30 min.: Yes Total # of Minutes for Discharge Time: 45 - General Info Date of Service: 08/07/21 Admission Dx/Problem (Free Text: Admission Diagnosis/Problem Admission Diagnosis/Problem CHF, Congestive heart failure Subjective Update: No acute events overnight. No new nursing concerns. Patient seen and examined while sitting up in the chair. She has no complaints and is feeling "okay." No concerns for hypercarbia by nursing staff. Patient requires swallow study due to how she was eating this morning. Nurses were concerned for some coughing which was not displayed before. Patient does not endorse any specific complaints. - Patient Data Vitals - Most Recent: Last Vital Signs Temp 97 F 08/07/21 04:37 Pulse 67 08/07/21 08:17 Resp 22 H 08/07/21 04:37 BP 155/53 H 08/07/21 08:17 Pulse Ox 89 L 08/07/21 04:55 Weight - Most Recent: 134 lb 8 oz I&O - Last 24 hours: Intake & Output 08/06/21 08/07/21 08/07/21 22:59 06:59 14:59 Intake Total 315 300 Output Total 675 500 Balance -360 -200 Lab Results - Last 24 hrs: Laboratory Results - last 24 hr 08/06/21 Range/Units 06:40 Sodium 143 (136-145) mEq/L Potassium 3.4 L (3.5-5.1) mEq/L Chloride 92 L (98-107) mEq/L Carbon Dioxide 49 H* (21-32) mEq/L Anion Gap 5.4 (5-15) BUN 87 H (7-18) mg/dL Creatinine 2.0 H (0.55-1.02) mg/dL Est Cr Clr Drug Dosing 15.80 mL/min Estimated GFR (MDRD) 24 (>60) mL/min BUN/Creatinine Ratio 43.5 H (14-18) Glucose 155 H (70-99) mg/dL Calcium 8.9 (8.5-10.1) mg/dL Med Orders - Current: Current Medications Acetaminophen (Acetaminophen 325 Mg Tab) 650 mg PO Q4H PRN PRN Reason: Pain (Mild 1-3)/fever Last Admin: 08/06/21 22:11 Dose: 650 mg Documented by: Apixaban (Apixaban 2.5 Mg Tab) 2.5 mg PO BID [facility] Last Admin: 08/07/21 08:18 Dose: 2.5 mg Documented by: Diclofenac Sodium (Diclofenac Sodium 1% Gel 100 Gm Tube) 0 gm TOP ASDIRECTED PRN PRN Reason: Pain Furosemide (Furosemide 40 Mg Tab) 40 mg PO DAILY [facility] Last Admin: 08/07/21 08:18 Dose: 40 mg Documented by: Hydralazine HCl (Hydralazine 20 Mg/Ml Sdv) 10 mg IVPUSH Q4H PRN PRN Reason: Hypertension Last Admin: 08/06/21 16:23 Dose: 10 mg Documented by: Levalbuterol HCl (Levalbuterol Hcl 1.25 Mg/3 Ml Neb) 1.25 mg NEB Q4H PRN PRN Reason: Wheezing Last Admin: 08/07/21 04:55 Dose: 1.25 mg Documented by: Melatonin (Melatonin 3 Mg Tab) 6 mg PO BEDTIME PRN PRN Reason: Sleep Last Admin: 08/06/21 22:11 Dose: 6 mg Documented by: Methylprednisolone Sodium Succinate (Methylprednisolone Sodium Succinate 40 Mg/1 Ml Sdv) 60 mg IVPUSH Q6H [facility] Last Admin: 08/07/21 04:38 Dose: 60 mg Documented by: Metoprolol Tartrate (Metoprolol Tartrate 50 Mg Tab) 50 mg PO Q12H [facility] Last Admin: 08/07/21 08:17 Dose: 50 mg Documented by: Pantoprazole Sodium (Pantoprazole 40 Mg Tab.Cr) 40 mg PO DAILY@0700 [facility] Last Admin: 08/07/21 05:59 Dose: 40 mg Documented by: Potassium Chloride (Potassium Chloride 20 Meq Tab.Er) 40 meq PO DAILY [facility] Last Admin: 08/07/21 08:15 Dose: 40 meq Documented by: Rosuvastatin Calcium (Rosuvastatin 10 Mg Tab) 10 mg PO QPM [facility] Last Admin: 08/06/21 17:15 Dose: 10 mg Documented by: Sodium Chloride (Sodium Chloride 0.9% 10 Ml Syringe) 10 ml FLUSH ASDIRECTED PRN PRN Reason: Keep Vein Open Last Admin: 07/29/21 13:30 Dose: 10 ml Documented by: Sodium Chloride (Sodium Chloride 0.65% Nasal [place] 45 Ml Bottle) 0 ml OLIVIA Q2H PRN PRN Reason: nasal dryness Discontinued Medications Albuterol (Albuterol 0.083% 2.5 Mg/3 Ml Neb Soln) 2.5 mg NEB Q2H PRN PRN Reason: Shortness Of Breath/wheezing Last Admin: 08/03/21 07:39 Dose: 2.5 mg Documented by: Bisacodyl (Bisacodyl 10 Mg Supp) 10 mg RECTAL ONETIME ONE Stop: 08/01/21 19:36 Last Admin: 08/01/21 19:40 Dose: 10 mg Documented by: Diltiazem HCl (Diltiazem 50 Mg/10 Ml Sdv) 10 mg IVPUSH ONETIME ONE Stop: 07/31/21 11:34 Last Admin: 07/31/21 11:43 Dose: 10 mg Documented by: Diltiazem HCl (Diltiazem Ir 30 Mg Tab) 30 mg PO Q6HR [facility] Last Admin: 07/31/21 17:57 Dose: 30 mg Documented by: Diltiazem HCl (Diltiazem Ir 30 Mg Tab) 30 mg PO ONETIME ONE Stop: 07/31/21 19:11 Last Admin: 07/31/21 19:50 Dose: 30 mg Documented by: Diltiazem HCl (Diltiazem Ir 60 Mg Tab) 60 mg PO Q8H [facility] Last Admin: 08/01/21 02:13 Dose: 60 mg Documented by: Enoxaparin Sodium (Enoxaparin 30 Mg/0.3 Ml Syringe) 30 mg SUBCUT DAILY [facility] Last Admin: 07/31/21 08:13 Dose: 30 mg Documented by: Furosemide (Furosemide 40 Mg/4 Ml Vial) 40 mg IVPUSH NOW ONE Stop: 07/29/21 13:43 Last Admin: 07/29/21 14:45 Dose: 40 mg Documented by: Furosemide (Furosemide 40 Mg/4 Ml Vial) 40 mg IVPUSH ONETIME ONE Stop: 07/29/21 18:01 Last Admin: 07/29/21 18:09 Dose: 40 mg Documented by: Furosemide (Furosemide 40 Mg/4 Ml Vial) 40 mg IVPUSH BIDDIURETIC [facility] Last Admin: 07/30/21 06:21 Dose: 40 mg Documented by: Furosemide (Furosemide 40 Mg/4 Ml Vial) 40 mg IVPUSH NOW ONE Stop: 07/30/21 08:12 Last Admin: 07/30/21 11:19 Dose: Not Given Documented by: Furosemide (Furosemide 40 Mg/4 Ml Vial) 80 mg IVPUSH BIDDIURETIC [facility] Last Admin: 07/31/21 14:05 Dose: 80 mg Documented by: Furosemide (Furosemide 100 Mg/10 Ml Sdv) 80 mg IVPUSH ONETIME ONE Stop: 07/30/21 20:01 Last Admin: 07/30/21 20:21 Dose: 80 mg Documented by: Furosemide (Furosemide 40 Mg/4 Ml Vial) 60 mg IVPUSH NOW ONE Stop: 08/01/21 09:17 Last Admin: 08/01/21 10:18 Dose: 60 mg Documented by: Furosemide (Furosemide 40 Mg/4 Ml Vial) 80 mg IVPUSH NOW ONE Stop: 08/01/21 15:34 Last Admin: 08/01/21 16:09 Dose: 80 mg Documented by: Furosemide (Furosemide 40 Mg/4 Ml Vial) 40 mg IVPUSH BID [facility] Last Admin: 08/06/21 08:00 Dose: 40 mg Documented by: Magnesium Sulfate 4 gm/ Premix 50 mls @ 12.5 mls/hr IV ONETIME ONE Stop: 07/30/21 13:23 Last Admin: 07/30/21 11:28 Dose: 12.5 mls/hr Documented by: Furosemide 100 mg/ Sodium (Chloride) 100 mls @ 10 mls/hr IV CONTINUOUS [facility]; Protocol Last Admin: 08/05/21 00:12 Dose: 5 ml/hr, 5 mls/hr Documented by: Albumin Human 12.5 gm/ Premix 50 mls @ 50 mls/hr IV ONETIME ONE Stop: 08/01/21 10:29 Last Admin: 08/01/21 10:19 Dose: 50 mls/hr Documented by: Magnesium Sulfate 2 gm/ Premix 50 mls @ 25 mls/hr IV ONETIME ONE Stop: 08/02/21 10:01 Last Admin: 08/02/21 08:27 Dose: 25 mls/hr Documented by: Magnesium Sulfate 2 gm/ Premix 50 mls @ 25 mls/hr IV ONETIME ONE Stop: 08/02/21 12:37 Last Admin: 08/02/21 10:52 Dose: Not Given Documented by: Potassium Chloride 10 meq/ (Premix) 100 mls @ 100 mls/hr IV Q1H [facility] Stop: 08/02/21 22:14 Last Admin: 08/02/21 22:10 Dose: 100 mls/hr Documented by: Potassium Chloride 10 meq/ (Premix) 100 mls @ 100 mls/hr IV Q1H [facility] Stop: 08/04/21 12:44 Last Admin: 08/04/21 09:47 Dose: 100 mls/hr Documented by: Levalbuterol HCl (Levalbuterol Hcl 1.25 Mg/3 Ml Neb) 1.25 mg NEB Q4H [facility] Last Admin: 08/04/21 09:16 Dose: 1.25 mg Documented by: Magnesium Hydroxide (Magnesium Hydroxide 400 Mg/5 Ml Susp 30 Ml Cup) 30 ml PO ONETIME ONE Stop: 08/01/21 13:32 Last Admin: 08/01/21 13:41 Dose: 30 ml Documented by: Metolazone (Metolazone 5 Mg Tab) 10 mg PO ONETIME ONE Stop: 08/01/21 14:27 Last Admin: 08/01/21 14:48 Dose: 10 mg Documented by: Metolazone (Metolazone 5 Mg Tab) 10 mg PO ONETIME ONE Stop: 08/02/21 13:01 Last Admin: 08/02/21 14:53 Dose: Not Given Documented by: Metoprolol Tartrate (Metoprolol Tartrate 5 Mg/5 Ml Sdv) 5 mg IVPUSH ONETIME ONE Stop: 07/31/21 09:25 Last Admin: 07/31/21 09:30 Dose: 5 mg Documented by: Metoprolol Tartrate (Metoprolol Tartrate 5 Mg/5 Ml Sdv) 5 mg IVPUSH ONETIME ONE Stop: 07/31/21 09:55 Last Admin: 07/31/21 11:35 Dose: Not Given Documented by: Metoprolol Tartrate (Metoprolol Tartrate 5 Mg/5 Ml Sdv) Confirm Administered Dose 5 mg .ROUTE .STK-MED ONE Stop: 07/31/21 09:57 Last Admin: 07/31/21 10:00 Dose: 5 mg Documented by: Potassium Chloride (Potassium Chloride 20 Meq Tab.Er) 40 meq PO ONETIME ONE Stop: 08/04/21 10:41 Last Admin: 08/04/21 10:48 Dose: 40 meq Documented by: Sodium Chloride (Sodium Chloride 0.65% Nasal [place] 45 Ml Bottle) 2 ml OLIVIA Q2H PRN PRN Reason: nasal dryness Last Admin: 08/05/21 15:35 Dose: 1 spray Documented by: - Exam Quality Assessment: Reports: Supplemental Oxygen, DVT Prophylaxis. Denies: Urine Catheter General: Reports: Alert, Cooperative, No Acute Distress Neck: Reports: Supple, No JVD Lungs: Reports: Normal Respiratory Effort, Decreased Breath Sounds Cardiovascular: Reports: Irregular Rhythm GI/Abdominal Exam: Normal Bowel Sounds, Soft, Non-Tender Extremities: Normal Inspection, Pedal Edema (Trace) Skin: Reports: Warm, Dry Psy/Mental Status: Reports: Normal Mood
== END 2021-08-07 13:50 | DRG 291 ==
LOC: JD.ED 12:47 → JD.MS 15:37 → JD.ED 16:19 → JD.ICU 07-31 10:53
PROVIDERS: ADMIT Family Medicine; ATTEND Family Medicine
PROC: 5A09457 Assistance with Respiratory Ventilation, 24-96 Consecutive Hours, Continuous Positive Airway Pressure (ICD-10-PCS; principal; 2021-07-29)
DX: I50.9 Heart failure, unspecified (principal); I13.0 Hypertensive heart and chronic kidney disease with heart failure and stage 1 through stage 4 chronic kidney disease, or unspecified chronic kidney disease; R09.02 Hypoxemia; I50.31 Acute diastolic (congestive) heart failure; J96.01 Acute respiratory failure with hypoxia; J96.02 Acute respiratory failure with hypercapnia; J44.1 Chronic obstructive pulmonary disease with (acute) exacerbation; N17.9 Acute kidney failure, unspecified; I48.91 Unspecified atrial fibrillation; D64.9 Anemia, unspecified; Z85.3 Personal history of malignant neoplasm of breast; Z66 Do not resuscitate; N18.9 Chronic kidney disease, unspecified; D50.9 Iron deficiency anemia, unspecified; Z20.822 Contact with and (suspected) exposure to COVID-19; E78.00 Pure hypercholesterolemia, unspecified; K21.9 Gastro-esophageal reflux disease without esophagitis; R32 Unspecified urinary incontinence; M10.9 Gout, unspecified; E87.5 Hyperkalemia; E78.2 Mixed hyperlipidemia; Z79.899 Other long term (current) drug therapy; Z79.01 Long term (current) use of anticoagulants; Z90.710 Acquired absence of both cervix and uterus; Z87.891 Personal history of nicotine dependence
CPT/HCPCS: 36415; 71045; 80053; 83880; 84484; 85025; 87804 ×2; 93005; 96374; 99285; J1940; U0002; 36410; 36600; 51702; 73560-26-RT; 73560-RT; 73600-26-LT; 73600-LT; 80048; 82803; 83735; 84100; 84443; 85379; 87641; 93010; 93306; 94640; 94660; 94760; 94761; 97110-GP; 97162-GP; 97163-GP; 97530-GP; 99100; 99221; 99232; 99233; 99238; A9270-GY; J0360; J1650; J2920; J3475; J3480; J3490; J7612-GY; P9047